=== PATIENT | female | born 1985 | race Caucasian/White ===

== ENCOUNTER 2016-06-09 17:02 | Emergency (ER) | payer MEDICAID ==
[2016-06-09] MEDS ORDERED: Ketorolac 30 MG/ML SDV IVPUSH ONE (18:34)
[2016-06-09] MEDS ORDERED: Sodium Chloride 0.9% 100 ML IV ONE (19:18)
[2016-06-09] MEDS ORDERED: Iopamidol 612 MG/ML 100 ML Bottle IV PRN (19:18)
[2016-06-09] MEDS: Sodium Chloride 0.9% 10 ML Syringe FLUSH PRN ×2 (19:23→19:36)
--- NOTE | 2016-06-09 19:48 | EDM.PDOC ---
ED HPI GI/ABDOMINAL - General Chief Complaint: Gastrointestinal Problem Stated Complaint: NAUSEA,VOMITING,LIGHTHEADED Time Seen by Provider: 06/09/16 18:11 Source: Reports: Patient, Old records, RN notes reviewed History Limitations: Reports: Other (She is anxious and uncomfortable, states "too many questions", but most of the history is complete) - History of Present Illness INITIAL COMMENTS - FREE TEXT/NARRATIVE: Brought here by her boyfriend, referred from the clinic for persisting nausea despite 2 L of intravenous fluids. Patient however states she has no nausea currently. Did receive ondansetron at the office. 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 She was last well 2 weeks ago then started developing diarrhea. She improved for a few days and then was seen in the office on May 29, for a physical exam but instead spent most of them fighting about her diarrhea and vomiting that had recurred. Vitamin D level was found low and she was prescribed metformin for elevated blood sugar. He since then she's continued to have intermittent vomiting and diarrhea, although her last bowel movement was a small solid bowel movement earlier today. Her last emesis was earlier today and is controlled because of as long as she doesn't eat and only drink small amounts she does not vomit. She's been able to take her medications as usual. She's never had illness lasting this long before. She continues to have abdominal cramping she feels very achy all over and very sore as well as feeling exhausted. Has chills but no fever documented. 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 Borderline type 2 diabetes, hemoglobin A1c was 6.4% and her blood sugar was under 25 at her last time tested. Last missed period was mid to late April, probably due for. She said he feels some menstrual cramps. Not using any protection against but has not been a check up for about 2 months because of her boyfriends leg injury and because of her recent diarrhea. Reports chronic postnasal drip which leads to collection of phlegm in her throat she clears by coughing. Does not feel short of breath. In addition to generalized muscle aches currently, she's developed some low back ache on the right side. - Related Data Allergies/ADRs: Allergies Allergy/AdvReac Type Severity Reaction Status Date / Time Penicillins Allergy Unknown Other Verified 02/08/15 01:11 Home Meds: Home Meds Albuterol Sulfate [Ventolin Hfa] 2 inhalation INH DAILY 07/27/15 [History] Cholecalciferol (Vitamin D3) [Vitamin D] 5,000 unit PO ASDIRECTED 06/09/16 [ History] Prochlorperazine Maleate [Compazine] 10 mg PO TID PRN #10 tablet 06/09/16 [Rx] metFORMIN HCl [Metformin HCl ER] 500 mg PO DAILY 06/09/16 [History] Past Medical History Other Respiratory History: pulmonary emboli Neurological History: Reports: Concussion Psychiatric History: Reports: Depression Endocrine/Metabolic History: Reports: Obesity/BMI 30+ - Past Surgical History HEENT Surgical History: Reports: Tonsillectomy Social & Family History - Tobacco Use Smoking Status *Q: Light Tobacco Smoker Years of Tobacco use: 14 Packs/Tins Daily: 0.5 Used Tobacco, but Quit: No Second Hand Smoke Exposure: Yes - Caffeine Use Caffeine Use: Reports: Soda - Alcohol Use Days Per Week of Alcohol Use: 0 - Recreational Drug Use Recreational Drug Use: Yes Drug Use in Last 12 Months: Yes Recreational Drug Type: Reports: Marijuana/Hashish Recreational Drug Use Frequency: Socially Recreational Drug Last Use: 12/15/2013 ED ROS GENERAL - Review of Systems Review Of Systems: See Below Constitutional: Reports: chills, weakness, fatigue, decreased appetite, weight loss (Uncertain). Denies: fever, diaphoresis HEENT: Reports: Other (Postnasal drip). Denies: Ear discharge, Ear pain, Eye discharge, Eye pain, Nose pain, Throat pain Respiratory: Reports: Cough (Occasional). Denies: Shortness of Breath, Wheezing Cardiovascular: Reports: Lightheadedness (Occasional). Denies: Palpitations, Syncope Endocrine: Reports: fatigue, high glucose (Borderline). Denies: polydypsia, polyuria GI/Abdominal: Reports: Abdominal pain (Generalized), Diarrhea (Improved), Decreased appetite, Nausea (Improved), Vomiting (With food or larger amounts of water). Denies: Bloody stool, Stool incontinence : Reports: other (Urine decreased). Denies: dysuria, incontinence, pain, urgency, urinary retention Musculoskeletal: Reports: muscle pain, other (Low back pain to the right of the spine) Skin: Reports: no symptoms Neurological: Reports: Headache (Mild), Difficulty Walking (T2 muscle aches and fatigue), Weakness. Denies: Numbness, Syncope, Tingling, Trouble Speaking Psychiatric: Reports: No symptoms (None reported) Hematologic/Lymphatic: Reports: other (Has had a chronically elevated white cell count) Immunologic: Reports: no symptoms ED EXAM, GI/ABD - Physical Exam Exam: See Below Exam Limited By: Other (Limited capacity to talk because of her weakness and tiredness, however history allergic complete) General Appearance: alert, anxious, moderate distress, other (Able to ambulate but slowly, Vital signs show mild elevation systolic blood pressure, otherwise normal) Eyes: bilateral: normal appearance, EOMI Ears: normal external exam, normal canal, hearing grossly normal, normal TMs Nose: normal inspection, normal mucosa Throat/Mouth: Normal gums, Normal voice, Other (Dry mouth and tongue) Head: atraumatic, normocephalic Neck: normal inspection, supple, non-tender Respiratory/Chest: no respiratory distress, lungs clear, normal breath sounds, no accessory muscle use Cardiovascular: normal peripheral pulses, regular rate, rhythm, no edema, no murmur GI/Abdominal: normal bowel sounds, soft, no mass, tenderness (Mild diffuse), other (Overweight, hard to examine abdomen) Back Exam: normal inspection, paraspinal tenderness (Mild on right side of low back) Extremities: normal inspection, normal range of motion, non-tender, no pedal edema Neurological: oriented, no motor/sensory deficits Psychiatric: anxious, tearful Skin Exam: Warm, Dry, Normal color, No rash Lymphatic: no adenopathy Course - Vital Signs Last Recorded V/S: Last Vital Signs Temp 36.6 C 06/09/16 17:32 Pulse 80 06/09/16 17:32 Resp 16 06/09/16 17:32 BP 154/79 H 06/09/16 17:32 Pulse Ox 95 06/09/16 17:32 - Orders/Labs/Meds Orders: Active Orders 24 hr Category Date Time Status Abdomen Pelvis w Cont [CT] Stat Exams 06/09/16 18:33 Taken Sodium Chloride 0.9% [Saline Flush] Med 06/09/16 19:18 Active 10 ml FLUSH ONETIME PRN Medication Orders Sodium Chloride (Saline Flush) 10 ml FLUSH ONETIME PRN PRN Reason: PER RADIOLOGY PROTOCOL Last Admin: 06/09/16 19:36 Dose: 10 ml Admin: 06/09/16 19:23 Dose: 10 ml Labs: Laboratory Tests 06/09/16 06/09/16 Range/Units 18:49 18:49 Urine Color Yellow Urine Appearance Cloudy Urine pH 5.0 (4.5-8.0) Ur Specific [place] 1.030 (1.008-1.030) Urine Protein Trace (NEGATIVE) mg/dL Urine Glucose (UA) Normal (NEGATIVE) mg/dL Urine Ketones 150 H (NEGATIVE) mg/dL Urine Occult Blood Negative (NEGATIVE) Urine Nitrite Negative (NEGATIVE) Urine Bilirubin Negative (NEGATIVE) Urine Urobilinogen Normal (NORMAL) mg/dL Ur Leukocyte Esterase Negative (NEGATIVE) Urine RBC 0-5 (0-5) Urine WBC 0-5 (0-5) Ur Epithelial Cells Moderate Amorphous Sediment Not seen Urine Bacteria Many Urine Mucus Not seen Urine HCG, Qual Negative Meds: Medications Generic Name Dose Route Start Last Admin Trade Name Freq PRN Reason Stop Dose Admin Sodium Chloride 10 ml 06/09/16 19:18 06/09/16 19:36 Saline Flush FLUSH 10 ml ONETIME PRN Administration PER RADIOLOGY PROTOCOL Discontinued Medications Generic Name Dose Route Start Last Admin Trade Name Freq PRN Reason Stop Dose Admin Sodium Chloride 100 mls @ 3 mls/sec 06/09/16 19:18 06/09/16 19:36 Normal Saline IV 06/09/16 19:19 3 mls/sec ONETIME ONE Administration Iopamidol 100 ml 06/09/16 19:18 06/09/16 19:36 Isovue-300 (61%) IV 06/09/16 19:19 100 ml . DIRECTED PRN Administration RADIOLOGY EXAM Ketorolac Tromethamine 30 mg 06/09/16 18:34 06/09/16 18:54 Toradol IVPUSH 06/09/16 18:35 30 mg ONETIME ONE Administration - Re-Assessments/Exams Free Text/Narrative Re-Assessment/Exam: 06/09/16 19:52 30-year-old female with two-week history of relapsing nausea vomiting and diarrhea. The nausea and diarrhea have improved but she still reports recent vomiting with large amounts of water or food. Her main complaint now is of normal pain fatigue and weakness. She has received 2 L of IV fluids in the office and lab tests in the office reviewed. She has an elevated white count of 18.2, normally runs in the 14-16 range. Electrolytes BUN creatinine hepatic profile normal Differential diagnosis would include gastritis but this is lasting long, colitis , chronic cholecystitis or pancreatitis or possibly appendicitis, thrombosis or ischemia of the intestines, among others. In view of her symptoms, and the fact that despite being hydrated she still feels achy and sore, CT scan of the abdomen and pelvis ordered as well as urinalysis and urine test which was negative. Urinalysis shows many bacteria but no diarrhea. Positive for ketones. 06/09/16 19:54 06/09/16 21:35 CT scan abdomen pelvis negative for acute pathology Plan Continue oral intake of small amounts of fluids frequently Continue oral medications Additional antinausea medication prescribed for tomorrow if needed Followup primary care symptoms persisting week Return to emergency as indicated below if needed Departure - Departure Time of Disposition: 21:30 Disposition: Refer to Observation Preliminary Cause of *Q: sepsis & multi system organ failure Condition: fair Clinical Impression: Generalized abdominal pain, Diarrhea in adult patient Nausea and vomiting Qualifiers: Vomiting type: unspecified Vomiting Intractability: non-intractable Qualified Code(s): R11.2 - Nausea with vomiting, unspecified Leukocytosis, unspecified Qualifiers: Leukocytosis type: other Qualified Code(s): D72.828 - Other elevated white blood cell count Prescriptions: Prochlorperazine Maleate [Compazine] 10 mg PO TID PRN #10 tablet PRN Reason: Abdominal Pain, nausea, vomiti Instructions: Abdominal Pain, Adult, [id number], Nausea and Vomiting, Adult, [id number] Referrals: Bibiana Russ NP [Primary Care Provider] - Forms: ED Department Discharge, Return to Work/School Form Additional Instructions: Please make an appointment for your physician/clinic one week to get rechecked Continue to drink small amounts of fluids frequently You're not improved in a week if physician will need to make arrangements for you to see a specialist Return to emergency if you have recurrence of profuse diarrhea, multiple episodes of vomiting, increased weakness to the point that you were unable to walk or fainting, bloody emesis or bloody diarrhea, or develop a high fever. - My Orders Last 24 Hours: My Active Orders 06/09/16 18:33 Abdomen Pelvis w Cont [CT] Stat 06/09/16 19:18 Sodium Chloride 0.9% [Saline Flush] 10 ml FLUSH ONETIME PRN - Assessment/Plan Last 24 Hours: My Active Orders 06/09/16 18:33 Abdomen Pelvis w Cont [CT] Stat 06/09/16 19:18 Sodium Chloride 0.9% [Saline Flush] 10 ml FLUSH ONETIME PRN
[2016-06-09 21:37] VITALS: BP 126/67
== END 2016-06-09 21:43 ==
LOC: JP.ED 17:02
DX: R11.2 Nausea with vomiting, unspecified (principal); R10.84 Generalized abdominal pain; R19.7 Diarrhea, unspecified; D72.829 Elevated white blood cell count, unspecified; E55.9 Vitamin D deficiency, unspecified; R73.03 Prediabetes; D68.51 Activated protein C resistance; Z86.711 Personal history of pulmonary embolism; F32.9 Major depressive disorder, single episode, unspecified; E66.9 Obesity, unspecified; Z79.899 Other long term (current) drug therapy; F17.210 Nicotine dependence, cigarettes, uncomplicated; F12.90 Cannabis use, unspecified, uncomplicated; R05 Cough; R09.82 Postnasal drip; R53.83 Other fatigue; M54.5 Low back pain; R51 Headache; R26.2 Difficulty in walking, not elsewhere classified; R53.1 Weakness
CPT/HCPCS: 74177; 81001; 81025; 96374; 99285; J1885; J7030; J7050; Q9967

== ENCOUNTER 2016-06-10 11:49 | Inpatient (IN) | payer MEDICAID ==
[2016-06-10] MEDS ORDERED: Ondansetron 4 MG/2 ML SDV IVPUSH ONE (13:08)
--- NOTE | 2016-06-10 13:12 | EDM.PDOC ---
ED HPI GI/ABDOMINAL - General Chief Complaint: Gastrointestinal Problem Stated Complaint: NAUSEA, DIARRHEA Time Seen by Provider: 06/10/16 13:08 Source: Reports: Patient History Limitations: Reports: No limitations - History of Present Illness INITIAL COMMENTS - FREE TEXT/NARRATIVE: pt was seen at the clinic yesterday and was given 2 liters of fluid. She came to the ER because she was not able to hold anything down. She had a large explosive loose stool this am and continued to vomit. Timing/Duration: Reports: Day(s):, Other ( She has had diarrhea for about 10 days. She does not think she is holding anything down. She states she does not remember most of yesterday. ) Location: other (Pt does not have severe abdomanal pain.) Associated Symptoms (-Female): Reports: diarrhea, other ( she was started on metformin 1 week ago and she thinks the loose stools are related to that. She has not been on recent antibiotics.,) - Related Data Allergies/ADRs: Allergies Allergy/AdvReac Type Severity Reaction Status Date / Time Penicillins Allergy Unknown Other Verified 06/10/16 12:32 Home Meds: Home Meds Albuterol Sulfate [Ventolin Hfa] 2 inhalation INH DAILY 07/27/15 [History] Cholecalciferol (Vitamin D3) [Vitamin D] 5,000 unit PO ASDIRECTED 06/09/16 [ History] Prochlorperazine Maleate [Compazine] 10 mg PO TID PRN #10 tablet 06/09/16 [Rx] metFORMIN HCl [Metformin HCl ER] 500 mg PO DAILY 06/09/16 [History] Past Medical History Respiratory History: Reports: PE Other Respiratory History: pulmonary emboli Musculoskeletal History: Reports: Fracture Neurological History: Reports: Concussion Psychiatric History: Reports: Depression Endocrine/Metabolic History: Reports: Obesity/BMI 30+ - Past Surgical History HEENT Surgical History: Reports: Tonsillectomy Social & Family History - Tobacco Use Smoking Status *Q: Light Tobacco Smoker Years of Tobacco use: 14 Packs/Tins Daily: 0.5 Used Tobacco, but Quit: No Second Hand Smoke Exposure: Yes - Caffeine Use Caffeine Use: Reports: Soda - Alcohol Use Days Per Week of Alcohol Use: 0 - Recreational Drug Use Recreational Drug Use: Yes Drug Use in Last 12 Months: Yes Recreational Drug Type: Reports: Marijuana/Hashish Recreational Drug Use Frequency: Socially Recreational Drug Last Use: 3 weeks ago. ED ROS GENERAL - Review of Systems Review Of Systems: See Below Constitutional: Reports: malaise, weakness, other (pt states after all of the vomiting yesterday she doesnt remember most of yesterday. ) HEENT: Reports: No symptoms Respiratory: Reports: No Symptoms Cardiovascular: Reports: No symptoms Endocrine: Reports: no symptoms GI/Abdominal: Reports: Diarrhea, Nausea, Vomiting : Reports: other ( period is late but she had a neg preg test yesterday. ) Skin: Reports: no symptoms ED EXAM, GI/ABD - Physical Exam Exam: See Below Text/Narrative:: Pt arrived with a history of vomiting and diarrhea. She has about 2 loose frothy stools daily. Exam Limited By: No limitations General Appearance: alert, mild distress Ears: normal TMs Nose: normal inspection Throat/Mouth: Normal inspection Head: atraumatic Neck: normal inspection Respiratory/Chest: no respiratory distress Cardiovascular: regular rate, rhythm GI/Abdominal: soft, non tender (Female) Exam: Deferred Rectal (Female) Exam: Deferred Back Exam: normal inspection Extremities: normal inspection Neurological: alert, oriented, normal cognition Psychiatric: depressed mood Course - Vital Signs Last Recorded V/S: Last Vital Signs Temp 36.9 C 06/12/16 13:15 Pulse 72 06/12/16 13:15 Resp 15 06/12/16 13:15 BP 163/91 H 06/12/16 13:15 Pulse Ox 94 L 06/12/16 13:15 - Orders/Labs/Meds Orders: Active Orders 24 hr Category Date Time Status GLUCOSE POC LAB TO COLLECT [POC] QIDACANDBED Lab 06/12/16 11:30 Ordered GLUCOSE POC LAB TO COLLECT [POC] QIDACANDBED Lab 06/12/16 16:30 Ordered GLUCOSE POC LAB TO COLLECT [POC] QIDACANDBED Lab 06/12/16 21:00 Ordered GLUCOSE POC LAB TO COLLECT [POC] QIDACANDBED Lab 06/13/16 07:30 Ordered GLUCOSE POC LAB TO COLLECT [POC] QIDACANDBED Lab 06/13/16 11:30 Ordered GLUCOSE POC LAB TO COLLECT [POC] QIDACANDBED Lab 06/13/16 16:30 Ordered GLUCOSE POC LAB TO COLLECT [POC] QIDACANDBED Lab 06/13/16 21:00 Ordered GLUCOSE POC LAB TO COLLECT [POC] QIDACANDBED Lab 06/14/16 07:30 Ordered GLUCOSE POC LAB TO COLLECT [POC] QIDACANDBED Lab 06/14/16 11:30 Ordered GLUCOSE POC LAB TO COLLECT [POC] QIDACANDBED Lab 06/14/16 16:30 Ordered GLUCOSE POC LAB TO COLLECT [POC] QIDACANDBED Lab 06/14/16 21:00 Ordered GLUCOSE POC LAB TO COLLECT [POC] QIDACANDBED Lab 06/15/16 07:30 Ordered GLUCOSE POC LAB TO COLLECT [POC] QIDACANDBED Lab 06/15/16 11:30 Ordered GLUCOSE POC LAB TO COLLECT [POC] QIDACANDBED Lab 06/15/16 16:30 Ordered GLUCOSE POC LAB TO COLLECT [POC] QIDACANDBED Lab 06/15/16 21:00 Ordered GLUCOSE POC LAB TO COLLECT [POC] QIDACANDBED Lab 06/16/16 07:30 Ordered GLUCOSE POC LAB TO COLLECT [POC] QIDACANDBED Lab 06/16/16 11:30 Ordered GLUCOSE POC LAB TO COLLECT [POC] QIDACANDBED Lab 06/16/16 16:30 Ordered GLUCOSE POC LAB TO COLLECT [POC] QIDACANDBED Lab 06/16/16 21:00 Ordered GLUCOSE POC LAB TO COLLECT [POC] QIDACANDBED Lab 06/17/16 07:30 Ordered GLUCOSE POC LAB TO COLLECT [POC] QIDACANDBED Lab 06/17/16 11:30 Ordered GLUCOSE POC LAB TO COLLECT [POC] QIDACANDBED Lab 06/17/16 16:30 Ordered GLUCOSE POC LAB TO COLLECT [POC] QIDACANDBED Lab 06/17/16 21:00 Ordered GLUCOSE POC LAB TO COLLECT [POC] QIDACANDBED Lab 06/18/16 07:30 Ordered GLUCOSE POC LAB TO COLLECT [POC] QIDACANDBED Lab 06/18/16 11:30 Ordered GLUCOSE POC LAB TO COLLECT [POC] QIDACANDBED Lab 06/18/16 16:30 Ordered GLUCOSE POC LAB TO COLLECT [POC] QIDACANDBED Lab 06/18/16 21:00 Ordered GLUCOSE POC LAB TO COLLECT [POC] QIDACANDBED Lab 06/19/16 07:30 Ordered GLUCOSE POC LAB TO COLLECT [POC] QIDACANDBED Lab 06/19/16 11:30 Ordered GLUCOSE POC LAB TO COLLECT [POC] QIDACANDBED Lab 06/19/16 16:30 Ordered GLUCOSE POC LAB TO COLLECT [POC] QIDACANDBED Lab 06/19/16 21:00 Ordered GLUCOSE POC LAB TO COLLECT [POC] QIDACANDBED Lab 06/20/16 07:30 Ordered GLUCOSE POC LAB TO COLLECT [POC] QIDACANDBED Lab 06/20/16 11:30 Ordered GLUCOSE POC LAB TO COLLECT [POC] QIDACANDBED Lab 06/20/16 16:30 Ordered GLUCOSE POC LAB TO COLLECT [POC] QIDACANDBED Lab 06/20/16 21:00 Ordered GLUCOSE POC LAB TO COLLECT [POC] QIDACANDBED Lab 06/21/16 07:30 Ordered GLUCOSE POC LAB TO COLLECT [POC] QIDACANDBED Lab 06/21/16 11:30 Ordered Medication Orders Acetaminophen (Tylenol) 650 mg PO Q4H PRN PRN Reason: Pain (Mild 1-3)/fever Last Admin: 06/11/16 08:15 Dose: 650 mg Admin: 06/10/16 23:52 Dose: 650 mg Admin: 06/10/16 17:24 Dose: 650 mg Albuterol (Ventolin Hfa) 0 gm INH DAILY [facility] Last Admin: 06/12/16 08:04 Dose: Not Given Admin: 06/11/16 08:29 Dose: Not Given Albuterol (Proventil Neb Soln) 2.5 mg NEB Q4H PRN PRN Reason: Shortness Of Breath/wheezing Albuterol/Ipratropium (Duoneb 3.0-0.5 Mg/3 Ml) 3 ml NEB QIDRT [facility] Last Admin: 06/12/16 10:42 Dose: 3 ml Dextrose (Glutose 15) 15 gm PO ONETIME PRN PRN Reason: Hypoglycemia Dextrose/Water (Dextrose 50% In Water) 50 ml IV ONETIME PRN PRN Reason: Hypoglycemia Enoxaparin Sodium (Lovenox) 40 mg SUBCUT Q12H [facility] Last Admin: 06/12/16 05:00 Dose: 40 mg Admin: 06/11/16 17:14 Dose: 40 mg Admin: 06/11/16 05:07 Dose: 40 mg Admin: 06/10/16 17:24 Dose: 40 mg Hydromorphone HCl (Dilaudid Self Sealing Fuel Tank Repairer 15 Mg In Ns 30 Ml) 0 mg IV ASDIRECTED PRN; Protocol PRN Reason: [employer] Last Admin: 06/11/16 15:44 Dose: 15 mg Lactated Ringer's (Ringers, Lactated) 1,000 mls @ 125 mls/hr IV ASDIRECTED [facility] Last Admin: 06/12/16 07:58 Dose: 125 mls/hr Infusion: 06/12/16 06:10 Dose: 125 mls/hr Admin: 06/11/16 22:10 Dose: 125 mls/hr Infusion: 06/11/16 21:37 Dose: 125 mls/hr Admin: 06/11/16 13:37 Dose: 125 mls/hr Infusion: 06/11/16 13:06 Dose: 125 mls/hr Admin: 06/11/16 05:06 Dose: 125 mls/hr Infusion: 06/11/16 01:27 Dose: 125 mls/hr Admin: 06/10/16 17:27 Dose: 125 mls/hr Ceftazidime 1 gm/ Sodium (Chloride) 50 mls @ 100 mls/hr IV Q8HR [facility] Last Admin: 06/12/16 05:00 Dose: 100 mls/hr Admin: 06/11/16 22:14 Dose: 100 mls/hr Admin: 06/11/16 15:57 Dose: 100 mls/hr Admin: 06/11/16 05:07 Dose: 100 mls/hr Admin: 06/10/16 21:49 Dose: 100 mls/hr Metronidazole 500 mg/ Premix 100 mls @ 100 mls/hr IV Q8H [facility] Last Admin: 06/12/16 09:41 Dose: 100 mls/hr Infusion: 06/12/16 03:09 Dose: 100 mls/hr Admin: 06/12/16 02:09 Dose: 100 mls/hr Infusion: 06/11/16 18:14 Dose: 100 mls/hr Admin: 06/11/16 17:14 Dose: 100 mls/hr Infusion: 06/11/16 10:11 Dose: 100 mls/hr Admin: 06/11/16 09:11 Dose: 100 mls/hr Infusion: 06/11/16 03:21 Dose: 100 mls/hr Admin: 06/11/16 02:21 Dose: 100 mls/hr Infusion: 06/10/16 18:25 Dose: 100 mls/hr Admin: 06/10/16 17:25 Dose: 100 mls/hr Influenza Virus Vaccine (Fluzone/Fluarix Vaccine) 60 mcg IM .ONCE ONE Stop: 06/13/16 10:01 Insulin Aspart (Novolog) 0 unit SUBCUT ASDIRECTED [facility]ACK[facility]ZIE PRN Reason: Protocol Lorazepam (Ativan) 1 mg IVPUSH Q6H PRN PRN Reason: Nausea/Vomiting Last Admin: 06/12/16 04:55 Dose: 1 mg Admin: 06/11/16 20:32 Dose: 1 mg Admin: 06/11/16 11:12 Dose: 1 mg Naloxone HCl (Narcan) 0.1 mg IV ASDIRECTED PRN PRN Reason: decreased respiratory rate Ondansetron HCl (Zofran) 4 mg IV Q4H PRN PRN Reason: Nausea/Vomiting Last Admin: 06/12/16 09:36 Dose: 4 mg Admin: 06/12/16 02:09 Dose: 4 mg Admin: 06/11/16 22:10 Dose: 4 mg Admin: 06/11/16 17:14 Dose: 4 mg Admin: 06/11/16 08:16 Dose: 4 mg Admin: 06/11/16 04:15 Dose: 4 mg Admin: 06/10/16 21:49 Dose: 4 mg Admin: 06/10/16 17:24 Dose: 4 mg Oxycodone HCl (Oxycodone) 5 mg PO Q4H PRN PRN Reason: Pain (moderate 4-6) Last Admin: 06/11/16 09:10 Dose: 5 mg Admin: 06/11/16 05:07 Dose: 5 mg Admin: 06/10/16 23:54 Dose: 5 mg Pantoprazole Sodium (Protonix Iv) 40 mg IV Q12H [facility] Last Admin: 06/12/16 05:00 Dose: 40 mg Admin: 06/11/16 18:18 Dose: 40 mg Admin: 06/11/16 05:07 Dose: 40 mg Admin: 06/10/16 17:24 Dose: 40 mg Pneumococcal Polyvalent Vaccine (Pneumovax 23) 0.5 ml IM .ONCE ONE Stop: 06/13/16 10:01 Scopolamine (Transderm-Scop) 1.5 mg TRDERM Q72H PRN PRN Reason: Nausea Last Admin: 06/12/16 09:35 Dose: 1.5 mg Sodium Chloride (Saline Flush) 10 ml FLUSH ASDIRECTED PRN PRN Reason: Keep Vein Open Labs: Laboratory Tests 06/10/16 06/10/16 06/10/16 Range/Units 13:18 13:18 13:18 WBC 17.2 H (4.5-11.0) K/uL RBC 5.71 H (3.30-5.50) M/uL Hgb 15.8 H (12.0-15.0) g/dL Hct 46.6 (36.0-48.0) % MCV 82 (80-98) fL MCH 28 (27-31) pg MCHC 34 (32-36) % Plt Count 166 (150-400) K/uL Neut % (Auto) 76 H (36-66) % Lymph % (Auto) 15 L (24-44) % Branch % (Auto) 8 H (2-6) % Eos % (Auto) 1 L (2-4) % Baso % (Auto) 1 (0-1) % Sodium 145 (140-148) mmol/L Potassium 4.5 (3.6-5.2) mmol/L Chloride 105 (100-108) mmol/L Carbon Dioxide 28 (21-32) mmol/L Anion Gap 12.5 (5.0-14.0) mmol/L BUN 8 (7-18) mg/dL Creatinine 0.7 (0.6-1.0) mg/dL Est Cr Clr Drug Dosing 120.10 mL/min Estimated GFR (MDRD) > 60 (>60) Glucose 118 H (74-106) mg/dL Calcium 9.1 (8.5-10.1) mg/dL Magnesium (1.8-2.4) mg/dL Total Bilirubin 0.5 (0.2-1.0) mg/dL AST 21 (15-37) U/L ALT 51 (12-78) U/L Alkaline Phosphatase 68 (46-116) U/L C-Reactive Protein 1.01 H (0.0-0.3) mg/dL Total Protein 7.9 (6.4-8.2) g/dL Albumin 3.8 (3.4-5.0) g/dL Globulin 4.1 H (2.3-3.5) g/dL Albumin/Globulin Ratio 0.9 L (1.2-2.2) Lipase (73-393) U/L Urine Color Urine Appearance Urine pH (4.5-8.0) Ur Specific [place] (1.008-1.030) Urine Protein (NEGATIVE) mg/dL Urine Glucose (UA) (NEGATIVE) mg/dL Urine Ketones (NEGATIVE) mg/dL Urine Occult Blood (NEGATIVE) Urine Nitrite (NEGATIVE) Urine Bilirubin (NEGATIVE) Urine Urobilinogen (NORMAL) mg/dL Ur Leukocyte Esterase (NEGATIVE) Urine RBC (0-5) Urine WBC (0-5) Ur Epithelial Cells Amorphous Sediment Urine Bacteria Urine Mucus Urine Opiates Screen (NEGATIVE) Ur Oxycodone Screen (NEGATIVE) Urine Methadone Screen (NEGATIVE) Ur Propoxyphene Screen (NEGATIVE) Ur Barbiturates Screen (NEGATIVE) Ur Tricyclics Screen (NEGATIVE) Ur Phencyclidine Scrn (NEGATIVE) Ur Amphetamine Screen (NEGATIVE) U Methamphetamines Scrn (NEGATIVE) Urine MDMA Screen (NEGATIVE) U Benzodiazepines Scrn (NEGATIVE) U Cocaine Metab Screen (NEGATIVE) U Marijuana (THC) Screen (NEGATIVE) 06/10/16 06/10/16 06/10/16 Range/Units 14:46 14:46 15:15 WBC (4.5-11.0) K/uL RBC (3.30-5.50) M/uL Hgb (12.0-15.0) g/dL Hct (36.0-48.0) % MCV (80-98) fL MCH (27-31) pg MCHC (32-36) % Plt Count (150-400) K/uL Neut % (Auto) (36-66) % Lymph % (Auto) (24-44) % Branch % (Auto) (2-6) % Eos % (Auto) (2-4) % Baso % (Auto) (0-1) % Sodium (140-148) mmol/L Potassium (3.6-5.2) mmol/L Chloride (100-108) mmol/L Carbon Dioxide (21-32) mmol/L Anion Gap (5.0-14.0) mmol/L BUN (7-18) mg/dL Creatinine (0.6-1.0) mg/dL Est Cr Clr Drug Dosing mL/min Estimated GFR (MDRD) (>60) Glucose (74-106) mg/dL Calcium (8.5-10.1) mg/dL Magnesium (1.8-2.4) mg/dL Total Bilirubin (0.2-1.0) mg/dL AST (15-37) U/L ALT (12-78) U/L Alkaline Phosphatase (46-116) U/L C-Reactive Protein (0.0-0.3) mg/dL Total Protein (6.4-8.2) g/dL Albumin (3.4-5.0) g/dL Globulin (2.3-3.5) g/dL Albumin/Globulin Ratio (1.2-2.2) Lipase 110 (73-393) U/L Urine Color Yellow Urine Appearance Slightly cloudy Urine pH 6.0 (4.5-8.0) Ur Specific [place] 1.020 (1.008-1.030) Urine Protein Negative (NEGATIVE) mg/dL Urine Glucose (UA) Normal (NEGATIVE) mg/dL Urine Ketones 50 H (NEGATIVE) mg/dL Urine Occult Blood Negative (NEGATIVE) Urine Nitrite Negative (NEGATIVE) Urine Bilirubin Negative (NEGATIVE) Urine Urobilinogen Normal (NORMAL) mg/dL Ur Leukocyte Esterase Negative (NEGATIVE) Urine RBC Not seen (0-5) Urine WBC 0-5 (0-5) Ur Epithelial Cells Many Amorphous Sediment Not seen Urine Bacteria Many Urine Mucus Few Urine Opiates Screen Negative (NEGATIVE) Ur Oxycodone Screen Negative (NEGATIVE) Urine Methadone Screen Negative (NEGATIVE) Ur Propoxyphene Screen Negative (NEGATIVE) Ur Barbiturates Screen Negative (NEGATIVE) Ur Tricyclics Screen Negative (NEGATIVE) Ur Phencyclidine Scrn Negative (NEGATIVE) Ur Amphetamine Screen Negative (NEGATIVE) U Methamphetamines Scrn Negative (NEGATIVE) Urine MDMA Screen Negative (NEGATIVE) U Benzodiazepines Scrn Negative (NEGATIVE) U Cocaine Metab Screen Negative (NEGATIVE) U Marijuana (THC) Screen Positive H (NEGATIVE) 06/11/16 06/11/16 Range/Units 04:50 04:50 WBC 16.3 H (4.5-11.0) K/uL RBC 5.09 (3.30-5.50) M/uL Hgb 13.9 (12.0-15.0) g/dL Hct 42.2 (36.0-48.0) % MCV 83 (80-98) fL MCH 27 (27-31) pg MCHC 33 (32-36) % Plt Count 143 L (150-400) K/uL Neut % (Auto) 61 (36-66) % Lymph % (Auto) 27 (24-44) % Branch % (Auto) 9 H (2-6) % Eos % (Auto) 2 (2-4) % Baso % (Auto) 0 (0-1) % Sodium 144 (140-148) mmol/L Potassium 3.4 L (3.6-5.2) mmol/L Chloride 107 (100-108) mmol/L Carbon Dioxide 26 (21-32) mmol/L Anion Gap 14.4 H (5.0-14.0) mmol/L BUN 7 (7-18) mg/dL Creatinine 0.7 (0.6-1.0) mg/dL Est Cr Clr Drug Dosing 120.10 mL/min Estimated GFR (MDRD) > 60 (>60) Glucose 95 (74-106) mg/dL Calcium 8.5 (8.5-10.1) mg/dL Magnesium 1.7 L (1.8-2.4) mg/dL Total Bilirubin (0.2-1.0) mg/dL AST (15-37) U/L ALT (12-78) U/L Alkaline Phosphatase (46-116) U/L C-Reactive Protein (0.0-0.3) mg/dL Total Protein (6.4-8.2) g/dL Albumin (3.4-5.0) g/dL Globulin (2.3-3.5) g/dL Albumin/Globulin Ratio (1.2-2.2) Lipase (73-393) U/L Urine Color Urine Appearance Urine pH (4.5-8.0) Ur Specific [place] (1.008-1.030) Urine Protein (NEGATIVE) mg/dL Urine Glucose (UA) (NEGATIVE) mg/dL Urine Ketones (NEGATIVE) mg/dL Urine Occult Blood (NEGATIVE) Urine Nitrite (NEGATIVE) Urine Bilirubin (NEGATIVE) Urine Urobilinogen (NORMAL) mg/dL Ur Leukocyte Esterase (NEGATIVE) Urine RBC (0-5) Urine WBC (0-5) Ur Epithelial Cells Amorphous Sediment Urine Bacteria Urine Mucus Urine Opiates Screen (NEGATIVE) Ur Oxycodone Screen (NEGATIVE) Urine Methadone Screen (NEGATIVE) Ur Propoxyphene Screen (NEGATIVE) Ur Barbiturates Screen (NEGATIVE) Ur Tricyclics Screen (NEGATIVE) Ur Phencyclidine Scrn (NEGATIVE) Ur Amphetamine Screen (NEGATIVE) U Methamphetamines Scrn (NEGATIVE) Urine MDMA Screen (NEGATIVE) U Benzodiazepines Scrn (NEGATIVE) U Cocaine Metab Screen (NEGATIVE) U Marijuana (THC) Screen (NEGATIVE) Meds: Medications Generic Name Dose Route Start Last Admin Trade Name Freq PRN Reason Stop Dose Admin Acetaminophen 650 mg 06/10/16 16:20 06/11/16 08:15 Tylenol PO 650 mg Q4H PRN Administration Pain (Mild 1-3)/fever Albuterol 0 gm 06/11/16 09:00 06/12/16 08:04 Ventolin Hfa INH Not Given DAILY MACKENZIE Albuterol 2.5 mg 06/10/16 16:20 Proventil Neb Soln NEB Q4H PRN Shortness Of Breath/wheezing Albuterol/Ipratropium 3 ml 06/12/16 11:00 06/12/16 10:42 Duoneb 3.0-0.5 Mg/3 Ml NEB 3 ml QIDRT MACKENZIE Administration Dextrose 15 gm 06/10/16 16:20 Glutose 15 PO ONETIME PRN Hypoglycemia Dextrose/Water 50 ml 06/10/16 16:20 Dextrose 50% In Water IV ONETIME PRN Hypoglycemia Enoxaparin Sodium 40 mg 06/10/16 18:00 06/12/16 05:00 Lovenox SUBCUT 40 mg Q12H MACKENZIE Administration Hydromorphone HCl 0 mg 06/11/16 13:40 06/11/16 15:44 Dilaudid Self Sealing [employer] Tank Repairer 15 Mg In Ns 30 Ml IV 15 mg ASDIRECTED PRN Administration [employer] Protocol Lactated Ringer's 1,000 mls @ 125 mls/hr 06/10/16 16:20 06/12/16 07:58 Ringers, Lactated IV 125 mls/hr ASDIRECTED MACKENZIE Administration Ceftazidime 1 gm/ Sodium 50 mls @ 100 mls/hr 06/10/16 22:00 06/12/16 05:00 Chloride IV 100 mls/hr Q8HR MACKENZIE Administration Metronidazole 500 mg/ Premix 100 mls @ 100 mls/hr 06/10/16 18:00 06/12/16 09: 41 IV 100 mls/hr Q8H MACK[facility]IE Administration Influenza Virus Vaccine 60 mcg 06/13/16 10:00 Fluzone/Fluarix 2016 Vaccine IM 06/13/16 10:01 .ONCE ONE Insulin Aspart 0 unit 06/10/16 16:20 Novolog SUBCUT ASDIRECTED MACKENZIE Protocol Lorazepam 1 mg 06/11/16 03:29 06/12/16 04:55 Ativan IVPUSH 1 mg Q6H PRN Administration Nausea/Vomiting Naloxone HCl 0.1 mg 06/11/16 13:40 Narcan IV ASDIRECTED PRN decreased respiratory rate Ondansetron HCl 4 mg 06/10/16 16:20 06/12/16 09:36 Zofran IV 4 mg Q4H PRN Administration Nausea/Vomiting Oxycodone HCl 5 mg 06/10/16 16:20 06/11/16 09:10 Oxycodone PO 5 mg Q4H PRN Administration Pain (moderate 4-6) Pantoprazole Sodium 40 mg 06/10/16 18:00 06/12/16 05:00 Protonix Iv IV 40 mg Q12H MACKEN[facility]IE Administration Pneumococcal Polyvalent Vaccine 0.5 ml 06/13/16 10:00 Pneumovax 23 IM 06/13/16 10:01 .ONCE ONE Scopolamine 1.5 mg 06/12/16 07:24 06/12/16 09:35 Transderm-Scop TRDERM 1.5 mg Q72H PRN Administration Nausea Sodium Chloride 10 ml 06/10/16 16:20 Saline Flush FLUSH ASDIRECTED PRN Keep Vein Open Discontinued Medications Generic Name Dose Route Start Last Admin Trade Name Freq PRN Reason Stop Dose Admin Bupivacaine HCl/Epinephrine Bitart Confirm 06/12/16 06:43 06/12/16 11:36 Marcaine 0.5%/Epinephrine 1:200,000 Administered 06/12/16 06:44 50 ml Dose Administration 50 ml .ROUTE .STK-MED ONE Dexamethasone Confirm 06/12/16 08:56 Dexamethasone Administered 06/12/16 08:57 Dose 4 mg .ROUTE .STK-MED ONE Fentanyl Confirm 06/11/16 11:26 Sublimaze Administered 06/11/16 11:27 Dose 100 mcg .ROUTE .STK-MED ONE Fentanyl Confirm 06/12/16 08:56 Sublimaze Administered 06/12/16 08:57 Dose 500 mcg .ROUTE .STK-MED ONE Fentanyl Confirm 06/12/16 12:33 Sublimaze Administered 06/12/16 12:34 Dose 100 mcg .ROUTE .STK-MED ONE Glycopyrrolate 0.4 mg 06/11/16 08:01 06/12/16 00:45 Robinul IVPUSH 06/11/16 08:02 Not Given ONETIME ONE Hydroxyzine HCl 100 mg 06/12/16 13:05 06/12/16 13:02 Vistaril IM 06/12/16 13:06 100 mg ONETIME ONE Administration Sodium Chloride 1,000 mls @ 999 mls/hr 06/10/16 13:15 06/10/16 13:38 Normal Saline IV 999 mls/hr ASDIRECTED MACKENZIE Administration Sodium Chloride 1,000 mls @ 999 mls/hr 06/10/16 14:30 06/10/16 14:45 Normal Saline IV 999 mls/hr ASDIRECTED MACKENZIE Administration Magnesium Sulfate 2 gm/ Premix 50 mls @ 25 mls/hr 06/11/16 09:00 06/11/16 17: 14 IV 06/11/16 16:59 25 mls/hr Q6H M[facility]IE Administration Potassium Chloride 20 meq/ 112 mls @ 56 mls/hr 06/11/16 09:30 06/11/16 13:37 Lidocaine HCl 2 ml/ Sodium IV 06/11/16 13:29 56 mls/hr Chloride Q2H MACKEN[facility]IE Administration Lactated Ringer's Confirm 06/12/16 11:58 Ringers, Lactated Administered 06/12/16 11:59 Dose 1,000 mls @ as directed .ROUTE .STK-MED ONE Ketorolac Tromethamine 30 mg 06/11/16 02:45 06/11/16 02:43 Toradol IVPUSH 06/11/16 02:46 30 mg ONETIME ONE Administration Labetalol HCl Confirm 06/12/16 12:06 Normodyne Administered 06/12/16 12:07 Dose 20 mg .ROUTE .STK-MED ONE Lorazepam 1 mg 06/11/16 00:17 06/11/16 00:32 Ativan IVPUSH 06/11/16 00:18 1 mg ONETIME ONE Administration Midazolam HCl Confirm 06/11/16 11:26 Versed 1 Mg/Ml Administered 06/11/16 11:27 Dose 2 mg .ROUTE .STK-MED ONE Ondansetron HCl 4 mg 06/10/16 13:08 06/10/16 13:36 Zofran IVPUSH 06/10/16 13:09 4 mg ONETIME ONE Administration Ondansetron HCl Confirm 06/12/16 08:56 Zofran Administered 06/12/16 08:57 Dose 4 mg .ROUTE .STK-MED ONE Propofol Confirm 06/11/16 11:26 Diprivan 20 Ml Administered 06/11/16 11:27 Dose 200 mg .ROUTE .STK-MED ONE Propofol Confirm 06/11/16 12:33 Diprivan 20 Ml Administered 06/11/16 12:34 Dose 200 mg .ROUTE .STK-MED ONE Propofol Confirm 06/12/16 08:56 Diprivan 20 Ml Administered 06/12/16 08:57 Dose 200 mg .ROUTE .STK-MED ONE Rocuronium [place] Confirm 06/12/16 08:56 Zemuron Administered 06/12/16 08:57 Dose 50 mg .ROUTE .STK-MED ONE Succinylcholine Chloride Confirm 06/12/16 08:56 Succinylcholine In Ns Pf Administered 06/12/16 08:57 Dose 200 mg .ROUTE .STK-MED ONE - Re-Assessments/Exams Free Text/Narrative Re-Assessment/Exam: 06/10/16 14:11 Pt had a cat scan last nit that did not show acute findinga. She has electrolytes that still look dry. She had a neg preg test last nite. Departure - Departure Time of Disposition: 13:15 Disposition: Admitted As Inpatient 67 Condition: fair Clinical Impression: Dehydration
[2016-06-10] MEDS ORDERED: Sodium Chloride 0.9% 1,000 ML IV SCH ×2 (13:15→14:30)
--- NOTE | 2016-06-10 13:40 | CR ---
Abdomen Series w Chest 1V INDICATION: pain FINDINGS: No focal consolidation. Slight atelectasis left lung base. Normal bowel gas pattern. No ev idence for small bowel obstruction. Exam otherwise unremarkable.
--- NOTE | 2016-06-10 16:05 | PCM.HP ---
H&P History of Present Illness - General Date of Service: 06/10/16 Admit Problem/Dx: Admission Diagnosis/Problem Admission Diagnosis/Problem Nausea and vomiting Source of Information: Patient, Old records, Provider, RN notes reviewed History Limitations: Reports: No limitations - History of Present Illness Initial Comments - Free Text/Narative: This patient is a 30-year-old woman who is admitted to observation status through the emergency department with dehydration secondary to persistent nausea and vomiting. She's not felt well over the past 2 weeks and is had intermittent nausea and vomiting as well as occasional loose stools. Now over the past 2-3 days has had very persistent nausea and vomiting, with dehydration. Evaluation in the emergency department last night included a normal CT scan with no significant abnormalities to explain her current symptoms. She has been found to have an elevated white blood cell count, but otherwise labs are unremarkable including normal liver function studies and lipase level. She's never had similar symptoms in the past. She develops nausea vomiting shortly after eating and is associated with the sensation of bloating and fullness in her upper abdomen. She also intermittently has had some pain across lower abdomen and left lower quadrant. - Related Data Allergies/Adverse Reactions: Allergies Allergy/AdvReac Type Severity Reaction Status Date / Time Penicillins Allergy Unknown Other Verified 06/10/16 12:32 Home Medications: Home Meds Albuterol Sulfate [Ventolin Hfa] 2 inhalation INH DAILY 07/27/15 [History] Cholecalciferol (Vitamin D3) [Vitamin D] 5,000 unit PO ASDIRECTED 06/09/16 [ History] Prochlorperazine Maleate [Compazine] 10 mg PO TID PRN #10 tablet 06/09/16 [Rx] metFORMIN HCl [Metformin HCl ER] 500 mg PO DAILY 06/09/16 [History] Past Medical History Respiratory History: Reports: PE Other Respiratory History: pulmonary emboli Musculoskeletal History: Reports: Fracture Neurological History: Reports: Concussion Psychiatric History: Reports: Depression Endocrine/Metabolic History: Reports: Obesity/BMI 30+ - Past Surgical History HEENT Surgical History: Reports: Tonsillectomy Social & Family History - Tobacco Use Smoking Status *Q: Light Tobacco Smoker Years of Tobacco use: 14 Packs/Tins Daily: 0.5 Used Tobacco, but Quit: No Second Hand Smoke Exposure: Yes - Caffeine Use Caffeine Use: Reports: Soda - Alcohol Use Days Per Week of Alcohol Use: 0 - Recreational Drug Use Recreational Drug Use: Yes Drug Use in Last 12 Months: Yes Recreational Drug Type: Reports: Marijuana/Hashish Recreational Drug Use Frequency: Socially Recreational Drug Last Use: 3 weeks ago. H&P Review of Systems - Review of Systems: Review Of Systems: See Below General: Denies: fever, chills, weakness, fatigue, diaphoresis, decreased appetite HEENT: Reports: no symptoms Pulmonary: Reports: No Symptoms Cardiovascular: Reports: no symptoms Gastrointestinal: Reports: Abdominal pain, Diarrhea, Decreased appetite, Nausea , Vomiting. Denies: Anorexia, Black stool, Bloody stool, Constipation, Difficulty swallowing Genitourinary: Reports: no symptoms Musculoskeletal: Reports: no symptoms Skin: Reports: no symptoms Psychiatric: Reports: no symptoms Neurological: Reports: No Symptoms Hematologic/Lymphatic: Reports: no symptoms Immunologic: Reports: no symptoms Exam - Exam Exam: See Below - Vital Signs Vital Signs: Last Vital Signs Temp 97.5 F 06/10/16 12:30 Pulse 78 06/10/16 12:30 Resp 16 06/10/16 12:30 BP 158/92 H 06/10/16 12:30 Pulse Ox 95 06/10/16 12:30 Weight: 325 lb 0.017 oz - Exam Quality Assessment: DVT prophylaxis General: alert, oriented, cooperative, mild distress HEENT: Conjunctiva clear, EOMI, Mucosa moist & pink, Nares patent, Normal nasal septum, Posterior pharynx clear, Pupils equal, Pupils reactive Neck: supple, trachea midline, +2 carotid pulse wo bruit Lungs: Clear to auscultation, Normal respiratory effort Cardiovascular: regular rate, regular rhythm, normal S1, normal S2. No: systolic murmur, diastolic murmur Abdomen: normal bowel sounds, soft, tenderness. No: organomegaly, peritoneal signs, distention, guarding, rigidity, rebound Back Exam: normal inspection, full range of motion, NT Extremities: 3, normal inspection, 10 Skin: warm, dry, intact Neurological: cranial nerves intact, strength equal bilateral, normal speech, normal tone, sensation intact. No: focal deficit Neuro Extensive - Mental Status: alert, oriented x3, normal mood/affect, normal cognition, memory intact - Patient Data Lab Results last 24 hrs: Laboratory Results - last 24 hr 06/10/16 06/10/16 06/10/16 Range/Units 13:18 13:18 13:18 WBC 17.2 H (4.5-11.0) K/uL RBC 5.71 H (3.30-5.50) M/uL Hgb 15.8 H (12.0-15.0) g/dL Hct 46.6 (36.0-48.0) % MCV 82 (80-98) fL MCH 28 (27-31) pg MCHC 34 (32-36) % Plt Count 166 (150-400) K/uL Neut % (Auto) 76 H (36-66) % Lymph % (Auto) 15 L (24-44) % [place] % (Auto) 8 H (2-6) % Eos % (Auto) 1 L (2-4) % Baso % (Auto) 1 (0-1) % Sodium 145 (140-148) mmol/L Potassium 4.5 (3.6-5.2) mmol/L Chloride 105 (100-108) mmol/L Carbon Dioxide 28 (21-32) mmol/L Anion Gap 12.5 (5.0-14.0) mmol/L BUN 8 (7-18) mg/dL Creatinine 0.7 (0.6-1.0) mg/dL Est Cr Clr Drug Dosing 120.10 mL/min Estimated GFR (MDRD) > 60 (>60) Glucose 118 H (74-106) mg/dL Calcium 9.1 (8.5-10.1) mg/dL Total Bilirubin 0.5 (0.2-1.0) mg/dL AST 21 (15-37) U/L ALT 51 (12-78) U/L Alkaline Phosphatase 68 (46-116) U/L C-Reactive Protein 1.01 H (0.0-0.3) mg/dL Total Protein 7.9 (6.4-8.2) g/dL Albumin 3.8 (3.4-5.0) g/dL Globulin 4.1 H (2.3-3.5) g/dL Albumin/Globulin Ratio 0.9 L (1.2-2.2) Lipase (73-393) U/L Urine Color Urine Appearance Urine pH (4.5-8.0) Ur Specific Golden (1.008-1.030) Urine Protein (NEGATIVE) mg/dL Urine Glucose (UA) (NEGATIVE) mg/dL Urine Ketones (NEGATIVE) mg/dL Urine Occult Blood (NEGATIVE) Urine Nitrite (NEGATIVE) Urine Bilirubin (NEGATIVE) Urine Urobilinogen (NORMAL) mg/dL Ur Leukocyte Esterase (NEGATIVE) Urine RBC (0-5) Urine WBC (0-5) Ur Epithelial Cells Amorphous Sediment Urine Bacteria Urine Mucus Urine Opiates Screen (NEGATIVE) Ur Oxycodone Screen (NEGATIVE) Urine Methadone Screen (NEGATIVE) Ur Propoxyphene Screen (NEGATIVE) Ur Barbiturates Screen (NEGATIVE) Ur Tricyclics Screen (NEGATIVE) Ur Phencyclidine Scrn (NEGATIVE) Ur Amphetamine Screen (NEGATIVE) U Methamphetamines Scrn (NEGATIVE) Urine MDMA Screen (NEGATIVE) U Benzodiazepines Scrn (NEGATIVE) U Cocaine Metab Screen (NEGATIVE) U Marijuana (THC) Screen (NEGATIVE) 06/10/16 06/10/16 06/10/16 Range/Units 14:46 14:46 15:15 WBC (4.5-11.0) K/uL RBC (3.30-5.50) M/uL Hgb (12.0-15.0) g/dL Hct (36.0-48.0) % MCV (80-98) fL MCH (27-31) pg MCHC (32-36) % Plt Count (150-400) K/uL Neut % (Auto) (36-66) % Lymph % (Auto) (24-44) % Penning[place] % (Auto) (2-6) % Eos % (Auto) (2-4) % Baso % (Auto) (0-1) % Sodium (140-148) mmol/L Potassium (3.6-5.2) mmol/L Chloride (100-108) mmol/L Carbon Dioxide (21-32) mmol/L Anion Gap (5.0-14.0) mmol/L BUN (7-18) mg/dL Creatinine (0.6-1.0) mg/dL Est Cr Clr Drug Dosing mL/min Estimated GFR (MDRD) (>60) Glucose (74-106) mg/dL Calcium (8.5-10.1) mg/dL Total Bilirubin (0.2-1.0) mg/dL AST (15-37) U/L ALT (12-78) U/L Alkaline Phosphatase (46-116) U/L C-Reactive Protein (0.0-0.3) mg/dL Total Protein (6.4-8.2) g/dL Albumin (3.4-5.0) g/dL Globulin (2.3-3.5) g/dL Albumin/Globulin Ratio (1.2-2.2) Lipase 110 (73-393) U/L Urine Color Yellow Urine Appearance Slightly cloudy Urine pH 6.0 (4.5-8.0) Ur Specific Golden 1.020 (1.008-1.030) Urine Protein Negative (NEGATIVE) mg/dL Urine Glucose (UA) Normal (NEGATIVE) mg/dL Urine Ketones 50 H (NEGATIVE) mg/dL Urine Occult Blood Negative (NEGATIVE) Urine Nitrite Negative (NEGATIVE) Urine Bilirubin Negative (NEGATIVE) Urine Urobilinogen Normal (NORMAL) mg/dL Ur Leukocyte Esterase Negative (NEGATIVE) Urine RBC Not seen (0-5) Urine WBC 0-5 (0-5) Ur Epithelial Cells Many Amorphous Sediment Not seen Urine Bacteria Many Urine Mucus Few Urine Opiates Screen Negative (NEGATIVE) Ur Oxycodone Screen Negative (NEGATIVE) Urine Methadone Screen Negative (NEGATIVE) Ur Propoxyphene Screen Negative (NEGATIVE) Ur Barbiturates Screen Negative (NEGATIVE) Ur Tricyclics Screen Negative (NEGATIVE) Ur Phencyclidine Scrn Negative (NEGATIVE) Ur Amphetamine Screen Negative (NEGATIVE) U Methamphetamines Scrn Negative (NEGATIVE) Urine MDMA Screen Negative (NEGATIVE) U Benzodiazepines Scrn Negative (NEGATIVE) U Cocaine Metab Screen Negative (NEGATIVE) U Marijuana (THC) Screen Positive H (NEGATIVE) Result Diagrams: 06/10/16 13:18 06/10/16 13:18 *Q Meaningful Use (ADM) - VTE *Q VTE Criteria *Q: - VTE Risk Assess *Q Each Risk Factor Represents 1 Point: None Total Score 1 Point Risk Factors: 0 Each Risk Factor Represents 2 Points: Morbid Obesity (BMI Greater than 40) Total Score 2 Point Risk Factors: 2 Each Risk Factor Represents 3 Points: Positive Factor V Leiden Total Score 3 Point Risk Factors: 3 Each Risk Factor Represents 5 Points: None Total Score 5 Point Risk Factors: 0 Venous Thromboembolism Risk Factor Score *Q: 5 - Stroke *Q Stroke Criteria *Q: - AMI *Q AMI Criteria *Q: Problem List Initiated/Reviewed/Updated: Yes Orders Last 24hrs: Active Orders 24 hr Category Date Time Status Patient Status Manage Transfer [TRANSFER] Routine ADT 06/10/16 15:39 Ordered CLOSTRIDIUM DIFFICILE BY PCR [RM] Stat Lab 06/10/16 13:07 Uncollected Sodium Chloride 0.9% [Normal Saline] 1,000 ml Med 06/10/16 13:15 Active IV ASDIRECTED Sodium Chloride 0.9% [Normal Saline] 1,000 ml Med 06/10/16 14:30 Active IV ASDIRECTED Resuscitation Status Routine Resus Stat 06/10/16 15:41 Ordered Medication Orders Sodium Chloride (Normal Saline) 1,000 mls @ 999 mls/hr IV ASDIRECTED [facility] Last Admin: 06/10/16 13:38 Dose: 999 mls/hr Sodium Chloride (Normal Saline) 1,000 mls @ 999 mls/hr IV ASDIRECTED [facility] Last Admin: 06/10/16 14:45 Dose: 999 mls/hr Assessment/Plan Comment:: ASSESSMENT AND PLAN DEHYDRATION SECONDARY TO NAUSEA AND VOMITING-persistent symptoms over the past 2 -3 days with very minimal oral intake. Initial this seemed to start with symptoms consistent with viral gastroenteritis. She develops nausea vomiting with upper abdominal discomfort and bloating shortly after any oral intake. -Clear liquid diet -N.p.o. after midnight -Antiemetic therapy as needed -Pain medication as needed -Protonix 40 mg IV Q. 12 hours -antibiotics to cover for possible cholecystitis including Fortaz and Flagyl -Consult Dr. Domínguez for surgical opinion and EGD in a.m. -CCK stimulated HIDA scan in a.m. 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 after midnight -Nicotinic dependence; not required CODE STATUS-FULL CODE ADMISSION STATUS-this patient will be admitted to observation status, expect no more than a one night hospital stay for evaluation and management of problems as outlined above. DISPOSITION-anticipate discharge to home after the hospital stay. PRIMARY CARE PROVIDER-Bibiana Russ
[2016-06-10] MEDS ORDERED: 50% Dextrose in Water 50 ML Syringe IV PRN (16:20)
[2016-06-10] MEDS ORDERED: Sodium Chloride 0.9% 10 ML Syringe FLUSH PRN (16:20)
[2016-06-10] MEDS ORDERED: Glucose Gel 15 GM in 37.5 GM Tube PO PRN (16:20)
[2016-06-10] MEDS ORDERED: Albuterol 0.083% 2.5 MG/3 ML Neb Soln NEB PRN (16:20)
[2016-06-10] MEDS: Enoxaparin 40 MG/0.4 ML Syringe SUBCUT SCH (17:24)
[2016-06-10] MEDS: Acetaminophen 325 MG Tab PO PRN ×2 (17:24→23:52)
[2016-06-10] MEDS: Ondansetron 4 MG/2 ML SDV IV PRN ×2 (17:24→21:49)
[2016-06-10] MEDS: Pantoprazole 40 MG Vial IV SCH (17:24)
[2016-06-10] MEDS: metroNIDAZOLE/Normal Saline 500 MG in Premix Bag 1 BAG IV SCH (17:25)
[2016-06-10] MEDS: Lactated Ringers 1,000 ML IV SCH (17:27)
[2016-06-10] MEDS: cefTAZidime 1 GM in Sodium Chloride 0.9% 50 ML IV SCH (21:49)
[2016-06-10] MEDS: oxyCODONE 5 MG Tab PO PRN (23:54)
[2016-06-11] MEDS ORDERED: LORazepam 2 MG/ML MDV IVPUSH ONE (00:17)
[2016-06-11] MEDS: metroNIDAZOLE/Normal Saline 500 MG in Premix Bag 1 BAG IV SCH ×3 (02:21→17:14)
[2016-06-11] MEDS ORDERED: Ketorolac 30 MG/ML SDV IVPUSH ONE (02:45)
[2016-06-11] MEDS: Ondansetron 4 MG/2 ML SDV IV PRN ×4 (04:15→22:10)
[2016-06-11] MEDS: Lactated Ringers 1,000 ML IV SCH ×3 (05:06→22:10)
[2016-06-11] MEDS: oxyCODONE 5 MG Tab PO PRN ×2 (05:07→09:10)
[2016-06-11] MEDS: Pantoprazole 40 MG Vial IV SCH ×2 (05:07→18:18)
[2016-06-11] MEDS: Enoxaparin 40 MG/0.4 ML Syringe SUBCUT SCH ×2 (05:07→17:14)
[2016-06-11] MEDS: cefTAZidime 1 GM in Sodium Chloride 0.9% 50 ML IV SCH ×3 (05:07→22:14)
--- NOTE | 2016-06-11 05:23 | PCM.SN ---
- Free Text/Narrative Note: time 05:18am; 2 call from [address] [place] [address] at 00:18am request for medication for nausea not relieved by zofran 02:46 am; request for pain medication not narcotic patient has nausea from narcotic pain medication patient with various complaints of body aches and pain. o: vital signs; 36.6-74-16 b/p105/72 o2 sat 91% a; pain, nausea and vomiting p; order;ativan 1mg iv, may repeat every 6 hr prn nausea and vomiting order ; toradol 30mg iv x one. continue present plan of care.
--- NOTE | 2016-06-11 07:44 | PCM.CONS ---
H&P History of Present Illness - General Date of Service: 06/11/16 Admit Problem/Dx: Admission Diagnosis/Problem Admission Diagnosis/Problem Nausea and vomiting Source of Information: Patient History Limitations: Reports: Other (patient unable to stay awake ) - History of Present Illness Initial Comments - Free Text/Narative: Reviewed Dr. Anson Hernadez's notes - Related Data Allergies/Adverse Reactions: Allergies Allergy/AdvReac Type Severity Reaction Status Date / Time Penicillins Allergy Unknown Other Verified 06/10/16 12:32 Home Medications: Home Meds Albuterol Sulfate [Ventolin Hfa] 2 inhalation INH DAILY 07/27/15 [History] Cholecalciferol (Vitamin D3) [Vitamin D] 5,000 unit PO ASDIRECTED 06/09/16 [ History] Prochlorperazine Maleate [Compazine] 10 mg PO TID PRN #10 tablet 06/09/16 [Rx] metFORMIN HCl [Metformin HCl ER] 500 mg PO DAILY 06/09/16 [History] Past Medical History Respiratory History: Reports: PE Other Respiratory History: pulmonary emboli Musculoskeletal History: Reports: Fracture Neurological History: Reports: Concussion Psychiatric History: Reports: Depression Endocrine/Metabolic History: Reports: Diabetes, type II, Obesity/BMI 30+ - Past Surgical History HEENT Surgical History: Reports: Tonsillectomy Social & Family History - Tobacco Use Smoking Status *Q: Light Tobacco Smoker Years of Tobacco use: 14 Packs/Tins Daily: 0.5 Used Tobacco, but Quit: No Second Hand Smoke Exposure: Yes - Caffeine Use Caffeine Use: Reports: Energy drinks, Soda - Alcohol Use Days Per Week of Alcohol Use: 0 - Recreational Drug Use Recreational Drug Use: Yes Drug Use in Last 12 Months: Yes Recreational Drug Type: Reports: Marijuana/Hashish Other Recreational Drug Type: 3 weeks ago Recreational Drug Use Frequency: Socially Recreational Drug Last Use: 3 weeks ago. H&P Review of Systems - Review of Systems: Review Of Systems: Unable To Obtain (patient could not stay awake long enough to complete a sentence so limited ROS) General: Reports: weakness, fatigue HEENT: Reports: no symptoms Pulmonary: Reports: No Symptoms Cardiovascular: Reports: no symptoms Gastrointestinal: Reports: Abdominal pain (points to mid epigastric area), Diarrhea, Nausea (dry heaves) Genitourinary: Reports: no symptoms Musculoskeletal: Reports: no symptoms Skin: Reports: no symptoms Psychiatric: Reports: no symptoms Neurological: Reports: No Symptoms Hematologic/Lymphatic: Reports: no symptoms Immunologic: Reports: no symptoms Review of Systems Comment:: Remainder ROS negative for any pertinent positives or negatives. Exam - Exam Exam: See Below - Vital Signs Vital Signs: Last Vital Signs Temp 97.8 F 06/11/16 07:00 Pulse 66 06/11/16 07:00 Resp 18 06/11/16 07:00 BP 120/78 06/11/16 07:00 Pulse Ox 92 L 06/11/16 07:00 Weight: 325 lb 0.017 oz - Exam General: lethargic Neck: supple Lungs: Clear to auscultation, Normal respiratory effort Cardiovascular: regular rate, regular rhythm Abdomen: tenderness (mid epigastric area ) (Female) Exam: Deferred Rectal (Female) Exam: Deferred Back Exam: normal inspection Extremities: normal inspection Skin: warm, dry, intact Neurological: cranial nerves intact, reflexes equal bilateral Neuro Extensive - Mental Status: other (as above ) Neuro Extensive - Motor, Sensory, Reflexes: CN II-XII intact Psychiatric: other (sedated) - Patient Data Lab Results last 24 hrs: Laboratory Results - last 24 hr 06/11/16 06/11/16 Range/Units 04:50 04:50 WBC 16.3 H (4.5-11.0) K/uL RBC 5.09 (3.30-5.50) M/uL Hgb 13.9 (12.0-15.0) g/dL Hct 42.2 (36.0-48.0) % MCV 83 (80-98) fL MCH 27 (27-31) pg MCHC 33 (32-36) % Plt Count 143 L (150-400) K/uL Neut % (Auto) 61 (36-66) % Lymph % (Auto) 27 (24-44) % [place] % (Auto) 9 H (2-6) % Eos % (Auto) 2 (2-4) % Baso % (Auto) 0 (0-1) % Sodium 144 (140-148) mmol/L Potassium 3.4 L (3.6-5.2) mmol/L Chloride 107 (100-108) mmol/L Carbon Dioxide 26 (21-32) mmol/L Anion Gap 14.4 H (5.0-14.0) mmol/L BUN 7 (7-18) mg/dL Creatinine 0.7 (0.6-1.0) mg/dL Est Cr Clr Drug Dosing 120.10 mL/min Estimated GFR (MDRD) > 60 (>60) Glucose 95 (74-106) mg/dL Calcium 8.5 (8.5-10.1) mg/dL Magnesium 1.7 L (1.8-2.4) mg/dL Result Diagrams: 06/11/16 04:50 06/11/16 04:50 Consult PN Assessment/Plan POD#: 0 Procedures: Procedures COMPLETE CBC W/AUTO DIFF WBC (02/25/14) COMPREHEN METABOLIC PANEL (02/25/14) CT PELVIS W/DYE (02/25/14) CULTURE SCREEN ONLY (05/25/15) EMERGENCY DEPT VISIT (07/27/15) EMERGENCY DEPT VISIT (02/08/15) EMERGENCY DEPT VISIT (02/25/14) EMERGENCY DEPT VISIT (12/21/13) EMERGENCY DEPT VISIT (08/10/13) EMERGENCY DEPT VISIT (07/12/13) EMERGENCY DEPT VISIT (07/12/13) EMERGENCY DEPT VISIT (02/22/13) EMERGENCY DEPT VISIT (02/22/13) RBC SED RATE NONAUTOMATED (02/25/14) ROUTINE VENIPUNCTURE (02/25/14) THER/PROPH/DIAG INJ IV PUSH (02/25/14) THER/PROPH/DIAG INJ SC/IM (07/27/15) TX/PRO/DX INJ NEW DRUG ADDON (02/25/14) TX/PRO/DX INJ SAME DRUG SERVICE SUPERVISOR (02/25/14) URINALYSIS AUTO W/SCOPE (02/25/14) URINE BACTERIA CULTURE (02/25/14) (1) Generalized abdominal pain SNOMED Code(s): 754135694 Code(s): R10.84 - GENERALIZED ABDOMINAL PAIN Current Visit: No (2) Diarrhea in adult patient SNOMED Code(s): 29876163 Code(s): R19.7 - DIARRHEA, UNSPECIFIED Current Visit: No (3) Nausea and vomiting SNOMED Code(s): 69019870 Code(s): R11.2 - NAUSEA WITH VOMITING, UNSPECIFIED Current Visit: No Qualifiers: Vomiting type: unspecified Vomiting Intractability: non-intractable Qualified Code(s): R11.2 - Nausea with vomiting, unspecified (4) Leukocytosis, unspecified SNOMED Code(s): 802063284, 416631527 Code(s): D72.829 - ELEVATED WHITE BLOOD CELL COUNT, UNSPECIFIED Current Visit: No Qualifiers: Leukocytosis type: other Qualified Code(s): D72.828 - Other elevated white blood cell count (5) Dehydration SNOMED Code(s): 22354848 Code(s): E86.0 - DEHYDRATION Current Visit: Yes Problem List Initiated/Reviewed/Updated: Yes My Orders last 24 hours: My Active Orders 06/11/16 06:58 Communication Order [RC] ROUTINE 06/11/16 07:00 Communication Order [RC] ROUTINE Plan: Admit to Inpatient Status - patient to stay 3 night s and possible 4 days Schedule and have consent signed for EGD with possible biopsies - IV Sedation - Alexi Domínguez MD - NPO - , 06/11/16 - Case to Follow Do HIDA Scan before EGD Will evaluated prn or in AM [facility]
[2016-06-11] MEDS ORDERED: Glycopyrrolate 0.2 MG/ML 2 ML SYRINGE IVPUSH ONE (08:01)
[2016-06-11] MEDS ORDERED: Potassium Chloride 40 MEQ in Premix Bag 1 BAG IV ONE (08:07)
[2016-06-11] MEDS: Acetaminophen 325 MG Tab PO PRN (08:15)
[2016-06-11] MEDS: Albuterol 8 GM Inhaler INH SCH (08:29)
[2016-06-11] MEDS ORDERED: Pneumococcal Polyvalent-23 Vaccine 0.5 ML SDV IM ONE (10:00)
[2016-06-11] MEDS ORDERED: Flu Vaccine 2016-17(36Mos+)/PF 60 MCG/0.5 ML Syringe IM ONE (10:00)
[2016-06-11] MEDS: Potassium Chloride 20 MEQ, Lidocaine 1% 2 ML in Sodium Chloride 0.9% 100 ML IV SCH ×2 (11:01→13:37)
[2016-06-11] MEDS: Magnesium Sulfate/Water 2 GM in Premix Bag 1 BAG IV SCH ×2 (11:04→17:14)
[2016-06-11] MEDS: LORazepam 2 MG/ML MDV IVPUSH PRN ×2 (11:12→20:32)
[2016-06-11] MEDS ORDERED: Midazolam 1 MG/ML 2 ML SDV ONE (11:26)
[2016-06-11] MEDS ORDERED: Propofol 200 MG/20 ML SDV ONE ×2 (11:26→12:33)
[2016-06-11] MEDS ORDERED: fentaNYL 100 MCG/2 ML SDV ONE (11:26)
--- NOTE | 2016-06-11 12:47 | NM ---
HIDA scan. Findings: 5.56 mCi technetium Choletec administered. 2.95 mcg CCK administered. Prompt liver uptake. Gallbladder uptake at 10 minutes. Bowel uptake at 20 minutes. Low gallbladder e jection fraction 9.8%. Impression: 1. Low gallbladder ejection fraction can indicate chronic cholecystitis or gallbladder dysfunction.
[2016-06-11] MEDS ORDERED: Naloxone 0.4 MG/ML SDV IV PRN (13:40)
[2016-06-11] MEDS: HYDROmorphone/Normal Saline 15 MG/30 ML PCA IV PRN (15:44)
--- NOTE | 2016-06-11 15:49 | PCM.PN ---
- General Info Date of Service: 06/11/16 Functional Status: Reports: pain controlled, ambulating, urinating - Review of Systems General: Denies: Fever, Chills Pulmonary: Reports: no symptoms Cardiovascular: Reports: No Symptoms Gastrointestinal: Reports: Abdominal pain, Nausea. Denies: Difficulty swallowing Psychiatric: Reports: no symptoms Systems Review Comment:: This patient has done fairly well since admission yesterday. There've been no further episodes of diarrhea, nausea and vomiting have been fairly well- controlled. EGD performed by Dr. Domínguez today showed no obvious source of pain or the nausea or vomiting. CCK stimulated HIDA scan was abnormal in that CCK infusion did reproduce her symptoms and her gallbladder ejection fraction was severely decreased. Current plan is for surgery tomorrow by Dr. Domínguez. - Patient Data Vitals - most recent: Last Vital Signs Temp 97.6 F 06/11/16 14:20 Pulse 63 06/11/16 14:20 Resp 14 06/11/16 14:20 BP 125/76 06/11/16 14:20 Pulse Ox 97 06/11/16 14:20 Weight - most recent: 325 lb 0.017 oz I&O - last 24 hours: Intake & Output 06/11/16 06/11/16 06/11/16 06:59 14:59 22:59 Intake Total 374 Output Total 80 Balance 294 Med Orders - Current: Current Medications Acetaminophen (Tylenol) 650 mg PO Q4H PRN PRN Reason: Pain (Mild 1-3)/fever Last Admin: 06/11/16 08:15 Dose: 650 mg Albuterol (Ventolin Hfa) 0 gm INH DAILY [facility] Last Admin: 06/11/16 08:29 Dose: Not Given Albuterol (Proventil Neb Soln) 2.5 mg NEB Q4H PRN PRN Reason: Shortness Of Breath/wheezing Dextrose (Glutose 15) 15 gm PO ONETIME PRN PRN Reason: Hypoglycemia Dextrose/Water (Dextrose 50% In Water) 50 ml IV ONETIME PRN PRN Reason: Hypoglycemia Enoxaparin Sodium (Lovenox) 40 mg SUBCUT Q12H [facility] Last Admin: 06/11/16 05:07 Dose: 40 mg Hydromorphone HCl (Dilaudid Latex Fashions Designer 15 Mg In Ns 30 Ml) 0 mg IV ASDIRECTED PRN; Protocol PRN Reason: FIELD RECORDER PAIN CONTROL Lactated Ringer's (Ringers, Lactated) 1,000 mls @ 125 mls/hr IV ASDIRECTED [facility] Last Admin: 06/11/16 13:37 Dose: 125 mls/hr Ceftazidime 1 gm/ Sodium (Chloride) 50 mls @ 100 mls/hr IV Q8HR [facility] Last Admin: 06/11/16 05:07 Dose: 100 mls/hr Metronidazole 500 mg/ Premix 100 mls @ 100 mls/hr IV Q8H [facility] Last Admin: 06/11/16 09:11 Dose: 100 mls/hr Magnesium Sulfate 2 gm/ Premix 50 mls @ 25 mls/hr IV Q6H [facility] Stop: 06/11/16 16:59 Last Admin: 06/11/16 11:04 Dose: 25 mls/hr Insulin Aspart (Novolog) 0 unit SUBCUT ASDIRECTED [facility] PRN Reason: Protocol Lorazepam (Ativan) 1 mg IVPUSH Q6H PRN PRN Reason: Nausea/Vomiting Last Admin: 06/11/16 11:12 Dose: 1 mg Naloxone HCl (Narcan) 0.1 mg IV ASDIRECTED PRN PRN Reason: decreased respiratory rate Ondansetron HCl (Zofran) 4 mg IV Q4H PRN PRN Reason: Nausea/Vomiting Last Admin: 06/11/16 08:16 Dose: 4 mg Oxycodone HCl (Oxycodone) 5 mg PO Q4H PRN PRN Reason: Pain (moderate 4-6) Last Admin: 06/11/16 09:10 Dose: 5 mg Pantoprazole Sodium (Protonix Iv) 40 mg IV Q12H [facility] Last Admin: 06/11/16 05:07 Dose: 40 mg Sodium Chloride (Saline Flush) 10 ml FLUSH ASDIRECTED PRN PRN Reason: Keep Vein Open Discontinued Medications Fentanyl (Sublimaze) Confirm Administered Dose 100 mcg .ROUTE .STK-MED ONE Stop: 06/11/16 11:27 Glycopyrrolate (Robinul) 0.4 mg IVPUSH ONETIME ONE Stop: 06/11/16 08:02 Sodium Chloride (Normal Saline) 1,000 mls @ 999 mls/hr IV ASDIRECTED [facility] Last Admin: 06/10/16 13:38 Dose: 999 mls/hr Sodium Chloride (Normal Saline) 1,000 mls @ 999 mls/hr IV ASDIRECTED [facility] Last Admin: 06/10/16 14:45 Dose: 999 mls/hr Potassium Chloride 20 meq/Lidocaine HCl 2 ml/ Sodium Chloride 112 mls @ 56 mls/ hr IV Q2H [facility] Stop: 06/11/16 13:29 Last Admin: 06/11/16 13:37 Dose: 56 mls/hr Influenza Virus Vaccine (Fluzone/Fluarix 2016 Vaccine) 60 mcg IM .ONCE ONE Stop: 06/11/16 10:01 Ketorolac Tromethamine (Toradol) 30 mg IVPUSH ONETIME ONE Stop: 06/11/16 02:46 Last Admin: 06/11/16 02:43 Dose: 30 mg Lorazepam (Ativan) 1 mg IVPUSH ONETIME ONE Stop: 06/11/16 00:18 Last Admin: 06/11/16 00:32 Dose: 1 mg Midazolam HCl (Versed 1 Mg/Ml) Confirm Administered Dose 2 mg .ROUTE .STK-MED ONE Stop: 06/11/16 11:27 Ondansetron HCl (Zofran) 4 mg IVPUSH ONETIME ONE Stop: 06/10/16 13:09 Last Admin: 06/10/16 13:36 Dose: 4 mg Pneumococcal Polyvalent Vaccine (Pneumovax 23) 0.5 ml IM .ONCE ONE Stop: 06/11/16 10:01 Propofol (Diprivan 20 Ml) Confirm Administered Dose 200 mg .ROUTE .STK-MED ONE Stop: 06/11/16 11:27 Propofol (Diprivan 20 Ml) Confirm Administered Dose 200 mg .ROUTE .STK-MED ONE Stop: 06/11/16 12:34 - Exam Quality Assessment: DVT prophylaxis General: alert, oriented, cooperative Lungs: Clear to auscultation, Normal respiratory effort Cardiovascular: Regular Rate, Regular Rhythm, No Murmurs Abdomen: bowel sounds present, soft, no distension, tenderness. No: rigidity, rebound, guarding Extremities: no edema Skin: warm, dry, intact - Problem List Review Problem List Initiated/Reviewed/Updated: Yes - My Orders Last 24 Hours: My Active Orders 06/11/16 09:00 Magnesium Sulfate/Water [Magnesium Sulfate 2 GM in Water 50 ML] 2 gm Premix Bag 1 bag IV Q6H 06/12/16 05:00 BASIC METABOLIC PANEL,BMP [CHEM] Timed CBC WITH AUTO DIFF [HEME] Timed MAGNESIUM [CHEM] Timed - Plan Plan:: ASSESSMENT AND PLAN CHOLECYSTITIS-persistent symptoms over the past 2-3 days with very minimal oral intake. Evaluation today shows evidence of cholecystitis is the likely cause of her recent symptoms. Current plan is for laparoscopic cholecystectomy with Dr. Domínguez in the a.m. -Clear liquid diet -N.p.o. after midnight -Antiemetic therapy as needed -Pain medication as needed -Protonix 40 mg IV Q. 12 hours -antibiotics to cover for possible cholecystitis including Fortaz and Flagyl -Laparoscopic cholecystectomy in a.m. 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 after midnight -Nicotinic dependence; not required CODE STATUS-FULL CODE ADMISSION STATUS-this patient will be admitted to observation status, expect no more than a one night hospital stay for evaluation and management of problems as outlined above. DISPOSITION-anticipate discharge to home after the hospital stay. PRIMARY CARE PROVIDER-[facility] service will sign off on the patient is she is to undergo surgery tomorrow, we can be of further assistance with medical management during her hospital stay please feel free to reconsult.
[2016-06-12] MEDS: Ondansetron 4 MG/2 ML SDV IV PRN ×3 (02:09→15:31)
[2016-06-12] MEDS: metroNIDAZOLE/Normal Saline 500 MG in Premix Bag 1 BAG IV SCH ×2 (02:09→09:41)
[2016-06-12] MEDS: LORazepam 2 MG/ML MDV IVPUSH PRN ×2 (04:55→19:39)
[2016-06-12] MEDS: Pantoprazole 40 MG Vial IV SCH (05:00)
[2016-06-12] MEDS: cefTAZidime 1 GM in Sodium Chloride 0.9% 50 ML IV SCH (05:00)
[2016-06-12] MEDS: Enoxaparin 40 MG/0.4 ML Syringe SUBCUT SCH (05:00)
[2016-06-12] MEDS ORDERED: Bupivacaine 0.5%/EPINEPHrine 1:200,000 50 ML MDV ONE (06:43)
[2016-06-12] MEDS ORDERED: Scopolamine 1.5 MG Transdermal Patch TRDERM PRN (07:24)
[2016-06-12] MEDS: Lactated Ringers 1,000 ML IV SCH (07:58)
[2016-06-12] MEDS: Albuterol 8 GM Inhaler INH SCH (08:04)
--- NOTE | 2016-06-12 08:51 | PN ---
DATE OF SERVICE: 06/12/2016 SUBJECTIVE: Ayaka is n.p.o. for a laparoscopic cholecystectomy today. Her ejection fraction from her HIDA scan was 10%. REVIEW OF SYSTEMS: Remainder of review of systems negative for any pertinent positives and negatives and she is n.p.o. OBJECTIVE: GENERAL: Ayaka Viera is a 30-year-old female. VITAL SIGNS: TPR is 96.8, 63, 20. Blood pressure 128/87. HEENT: Negative. NECK: Supple. HEART: Regular rate and rhythm. LUNGS: Reveal extensive wheezing. She has moderate air exchange. She states this is normal for her. History of asthma and cannot remember when she quit smoking. ABDOMEN: Remains to be tender in the mid epigastric area. EXTREMITIES: Without peripheral edema and SCDs have been on. ASSESSMENT: Biliary dyskinesia. PLAN: 1. Orders written for laparoscopic cholecystectomy, to remain n.p.o., scopolamine patch was placed. 2. We will evaluate p.r.n. or in a.m. and orders to be written postoperatively. Jewels Baker PA-C /[id number]
[2016-06-12] MEDS ORDERED: Ondansetron 4 MG/2 ML SDV ONE (08:56)
[2016-06-12] MEDS ORDERED: fentaNYL 250 MCG/5 ML SDV ONE (08:56)
[2016-06-12] MEDS ORDERED: Rocuronium 50 MG/5 ML Vial ONE (08:56)
[2016-06-12] MEDS ORDERED: Propofol 200 MG/20 ML SDV ONE (08:56)
[2016-06-12] MEDS ORDERED: Succinylcholine/Normal Saline 200 MG/10 ML Syringe ONE (08:56)
[2016-06-12] MEDS ORDERED: Dexamethasone 4 MG/ML SDV ONE (08:56)
[2016-06-12] MEDS ORDERED: Albuterol/Ipratropium 3.0-0.5 MG/3 ML Neb Soln NEB SCH (11:00)
[2016-06-12] MEDS ORDERED: Lactated Ringers 1,000 ML ONE (11:58)
[2016-06-12] MEDS ORDERED: Labetalol 20 MG/4 ML Syringe ONE (12:06)
[2016-06-12] MEDS ORDERED: fentaNYL 100 MCG/2 ML SDV ONE (12:33)
[2016-06-12] MEDS ORDERED: hydrOXYzine HCl 50 MG/ML SDV IM ONE (13:05)
[2016-06-12] MEDS: Dextrose 5%-Lactated Ringers 1,000 ML IV SCH (15:12)
[2016-06-12] MEDS: cefOXitin 2 GM in Sodium Chloride 0.9% 50 ML IV SCH ×2 (15:42→21:49)
[2016-06-12] MEDS: Insulin Aspart 100 Units/ML 3 ML Pen SUBCUT SCH ×2 (17:38→21:51)
[2016-06-12] MEDS ORDERED: hydrOXYzine HCl 50 MG/ML SDV IM PRN (23:45)
[2016-06-12] MEDS ORDERED: hydrOXYzine HCl 25 MG Tab PO PRN ×2 (23:46→23:49)
[2016-06-13] MEDS: cefOXitin 2 GM in Sodium Chloride 0.9% 50 ML IV SCH ×2 (01:43→08:44)
[2016-06-13] MEDS: Dextrose 5%-Lactated Ringers 1,000 ML IV SCH (01:45)
[2016-06-13] MEDS: LORazepam 2 MG/ML MDV IVPUSH PRN (03:31)
[2016-06-13] MEDS: HYDROmorphone/Normal Saline 15 MG/30 ML PCA IV PRN (05:00)
[2016-06-13] MEDS ORDERED: Enoxaparin 40 MG/0.4 ML Syringe SUBCUT SCH (06:00)
[2016-06-13] MEDS ORDERED: Pantoprazole 40 MG Vial IV SCH (06:00)
[2016-06-13] MEDS: Ondansetron 4 MG/2 ML SDV IV PRN ×2 (08:45→12:11)
[2016-06-13] MEDS: Acetaminophen/oxyCODONE 325-5 MG Tab PO PRN ×2 (08:45→12:11)
[2016-06-13] MEDS ORDERED: Flu Vaccine 2016-17(36Mos+)/PF 60 MCG/0.5 ML Syringe IM ONE (10:00)
[2016-06-13] MEDS ORDERED: metFORMIN 500 MG Tab.ER PO SCH (10:00)
[2016-06-13] MEDS ORDERED: Pneumococcal Polyvalent-23 Vaccine 0.5 ML SDV IM ONE (10:00)
[2016-06-13 10:46] VITALS: BP 114/65
--- NOTE | 2016-06-15 14:14 | PN ---
DATE OF SERVICE: 06/13/2016 The patient has been afebrile with stable vital signs. Feeling anxious overnight and walking around quite a bit, but otherwise appears to stable. Labs look okay this morning, just had elevated white count that has probably reacted to the surgery and the liver function tests were negative. CICI drainage is serous. For pain control, we will keep her here today. We will discontinue the CICI drain. Restart metformin. Back down the IV rate she'll be going up to regular diet. We will ask Dr. Hernadez with her factor V Leiden deficiency, whether or not she should be going on a course of anticoagulation. Otherwise, continue the b.i.d. Lovenox now. Alexi Domínguez MD /[id number]
--- NOTE | 2016-06-18 19:19 | OR ---
DATE OF PROCEDURE: 06/11/2016 PREOPERATIVE DIAGNOSIS: Biliary dyskinesia. POSTOPERATIVE DIAGNOSIS: Biliary dyskinesia. OPERATIVE PROCEDURE: Laparoscopic cholecystectomy (03827). ANESTHESIA: General. SALES PROJECT ENGINEER: Jewels Baker PA-C INDICATION FOR PROCEDURE: This is a 30-year-old female presenting with upper abdominal discomfort and nausea. A HIDA scan was obtained yesterday, which showed only a 10% ejection fraction with CCK causing reproduction of the patient's symptoms. Plan is to proceed with laparoscopic cholecystectomy. Potential risks including bleeding, infection, injury to underlying viscera such as the common bile duct, as well as possibility of persistent symptoms postoperatively were all reviewed, and the patient wishes to proceed. DETAILS OF PROCEDURE: The patient was taken to the operating room and placed in a supine position. After general endotracheal anesthesia was induced, the abdomen was prepped and draped. In the area just to the right of the umbilicus, a transverse incision was made and peritoneal cavity entered under direct vision with an Optiview trocar. The peritoneal cavity was inflated to 15 mmHg with CO2. Laparoscope was reinserted. No underlying trocar insertion site injuries were seen. Following this, a 12 mm epigastric trocar as well as a 5 mm right abdominal trocar were placed and the upper abdomen was examined. The patient was noted to have a fatty infiltrated liver. Otherwise, her gallbladder was quite distended and edematous, somewhat manriquez in appearance consistent with ongoing cholecystitis. The gallbladder was then retracted anteriorly and laterally. Dissection began on the gallbladder neck with Harmonic scalpel and continued around the gallbladder neck and cystic duct junction. Once that area was well delineated as was the adjacent cystic artery, both structures were clipped 3 times proximally and once distally, and the gallbladder dissected off the gallbladder bed using Harmonic scalpel and delivered through the upper midline port. Inspection of the gallbladder off the field showed intense cholesterolosis with some small specks of a sludge-like material present. The area of dissection was inspected. Panchito-Parham drain was taken out through the right lateral trocar site and placed in the area of gallbladder bed with no further problems such as bile leaks or bleeding. The trocars were removed. The fascia at the 12 mm site was closed with 0 Vicryl stitch, and the skin with 4-0 Vicryl skin stitch. Dressing was applied. The patient was taken to the recovery room in satisfactory condition. Physician operations administrative assistant, Jewels Norby, played an essential role in assisting in this case, helping to position the patient, retract structures as needed, as well as suturing and cutting sutures when indicated. Her presence improved patient safety and decreased operative time. Alexi Domínguez MD /[id number]
--- NOTE | 2016-06-22 22:53 | OR ---
DATE OF PROCEDURE: 06/12/2016 PREOPERATIVE DIAGNOSIS: Probable subacute cholecystitis. POSTOPERATIVE DIAGNOSIS: Subacute and chronic cholecystitis with pericholecystic fluid collection (sterile versus nonsterile abscess). OPERATIVE PROCEDURE: 1. Diagnostic laparoscopy with:. a. Cholecystectomy (92589). b. Drainage of pericholecystic abscess ([id number]). ANESTHESIA: General. BULB GRADER: Jewels Baker PA-C. INDICATIONS FOR PROCEDURE: This 30-year-old was admitted on 06/10/2016 with abdominal pain. Workup eventually led to the identification of an abnormal gallbladder. The gallbladder was quite tender and suspected again with subacute cholecystitis. The plan is to proceed with laparoscopic possible open cholecystectomy with possibility of complications such as bleeding, infection, injury to underlying viscera such as common bile duct, possible persistent symptoms postoperatively were all reviewed, and the patient wishes to proceed. DETAILS OF PROCEDURE: The patient was taken to the operating room and was placed in a supine position. After general endotracheal anesthesia was induced, the abdomen was then prepped and draped. Due to a bit of fullness in the right upper quadrant consistent with fairly marked inflammation at that level, the safest approach in terms of gaining access to the abdomen appeared to be an optical trocar placed just to the right of the umbilicus. The incision was made there and the peritoneal cavity entered under direct vision with Optiview trocar inflated to 15 mmHg pressure with CO2. Following this, a 12 mm epigastric trocar and a 5 mm right upper quadrant trocar were placed. As expected, the patient had a quite subacute component of cholecystitis. The omentum at this time was loosely adherent and this was pulled back as we elevated the gallbladder away from the omentum and transverse colon. The pancreatic fluid collection was present. This was aspirated and the abscess cavity fluid was sent for Gram stain and culture. At this point, the gallbladder was opened as it was tensely distended; difficult to manage and the bilious material evacuated. This contained some black small stones as well. The gallbladder was then retracted anteriorly and laterally, and dissection began with Harmonic scalpel at the gallbladder neck, continued around the gallbladder neck, cystic duct junction. Once that area was well delineated as was the cystic artery, both structures were clipped 3 times proximally and once distally and divided. The gallbladder was then dissected off the gallbladder bed using the Harmonic scalpel and delivered through the epigastric trocar site, the latter which had to be enlarged somewhat. At this point, no further problems noted and no bleeding or bile leaks were seen and the Panchito-Parham drain was taken out through the right lateral trocar site and placed into the gallbladder bed as well as the pericholecystic abscess. The trocars were then sequentially removed with the fascia. The 12-mm site was closed with 0-Vicryl stitch and the skin with 6-0 Vicryl skin stitch other than the epigastric site where the gallbladder had been pulled through was packed open with some iodoform gauze to minimize the postoperative infection risk. The patient was taken to the recovery room in satisfactory condition. Physician dental front office assistant, Jewels Baker, played an essential role in assisting in this case, helping to position the patient, retract structures as needed, suturing and cutting sutures as indicated. Her presence improved patient safety and decreased operative time. Alexi Domínguez MD /[id number]
--- NOTE | 2016-06-29 15:49 | OR ---
DATE OF PROCEDURE: 06/11/2016 PREOPERATIVE DIAGNOSIS: Upper abdominal pain. POSTOPERATIVE DIAGNOSES: Upper abdominal pain associated with mild antral gastritis. OPERATIVE PROCEDURE: Esophagogastroduodenoscopy with antral biopsies for CLOtest. ANESTHESIA: IV sedation. INDICATION FOR PROCEDURE: This is a 30-year-old admitted with upper abdominal pain. She underwent a CCK-stimulated HIDA scan earlier today, which revealed an abnormal ejection fraction and did reproduce her discomfort and did undergo an upper GI endoscopy presently to make sure there is not something in addition to the biliary dyskinesia causing her pain. Potential risks including bleeding and perforation were discussed, and the patient wishes to proceed. DETAILS OF PROCEDURE: The patient was taken to the operating room and placed in a left lateral decubitus position. IV sedation was administered, after which the upper GI endoscope was passed orally through the length of the esophagus and into the stomach with retroflexion view of the fundus, thereafter through the pyloric channel, and into the proximal duodenum. Findings included normal esophagus and EG junction area. The proximal stomach was likewise unremarkable. The small-bowel had retained bile. In the antrum, there was some mild patchy redness without erosions or ulcers. In the duodenum to the junction of the third and fourth portions were unremarkable. Biopsies thereafter obtained from the antrum and sent for CLOtest for H. pylori. Minimal bleeding from the biopsy sites was seen. The procedure was then concluded. The patient was taken to the recovery room in satisfactory condition. The operative findings would not likely be contributing significantly to her progressive symptoms and given the HIDA scan results, we will plan to proceed with a laparoscopic cholecystectomy tomorrow. Alexi Domínguez MD /[id number]
--- NOTE | 2016-07-08 14:45 | DISCH ---
FINAL DIAGNOSIS: 1. Subacute and chronic cholecystitis with pericholecystic abscess. 2. Mild antral gastritis. 3. Dehydration secondary to persistent nausea and vomiting. PAST MEDICAL HISTORY: Includes a history of pulmonary embolism, history of depression, history of obesity. OPERATIVE PROCEDURE: 1. On 06/11/2016, esophagogastroduodenoscopy with antral biopsies for CLOtest. 2. On 06/12/2016, diagnostic laparoscopy with. a. Cholecystectomy. b. Drainage of pericholecystic abscess. HOSPITAL COURSE: This is a 31-year-old admitted with abdominal pain, nausea, and vomiting. The patient had upper abdominal pain, initially noted the day following admission. The patient underwent a HIDA scan. This did show below normal ejection fraction and did reproduce her symptoms to a significant extent. Upper GI endoscopy was done to make sure there was nothing additionally going on in that region. This only showed some mild antral gastritis. Given this, the patient underwent a cholecystectomy on 06/12/2016, which showed a quite striking subacute cholecystitis as had developed an abscess cavity was also encountered, and it was drained. Postoperatively, the patient did well and was discharged home on postop day #1. Medications are as per the listed at discharge. Follow up will be with Jewels Baker at [facility] in roughly 1 week.
== END 2016-06-13 15:15 | disposition home or self-care (01) | DRG 418 ==
LOC: JP.ED 11:49 → JP.MS 15:39 → OBSVTOIN 06-11 07:00
PROVIDERS: ADMIT Hospitalist; ATTEND Hospitalist
PROC: 0DB68ZX Excision of Stomach, Via Natural or Artificial Opening Endoscopic, Diagnostic (ICD-10-PCS; principal; 2016-06-11)
PROC: 0FT44ZZ Resection of Gallbladder, Percutaneous Endoscopic Approach (ICD-10-PCS; 2016-06-12)
DX: K81.1 Chronic cholecystitis (principal); Z68.41 Body mass index [BMI] 40.0-44.9, adult; D68.51 Activated protein C resistance; E86.0 Dehydration; R19.7 Diarrhea, unspecified; R11.2 Nausea with vomiting, unspecified; D72.829 Elevated white blood cell count, unspecified; E11.9 Type 2 diabetes mellitus without complications; Z23 Encounter for immunization; F17.210 Nicotine dependence, cigarettes, uncomplicated; Z86.711 Personal history of pulmonary embolism; F32.9 Major depressive disorder, single episode, unspecified; E66.01 Morbid (severe) obesity due to excess calories; Z86.718 Personal history of other venous thrombosis and embolism; Z79.84 Long term (current) use of oral hypoglycemic drugs; Z88.0 Allergy status to penicillin; F12.90 Cannabis use, unspecified, uncomplicated; K76.0 Fatty (change of) liver, not elsewhere classified
CPT/HCPCS: 36415; 74022; 74022-26; 78227; 78227-26; 80048; 80053; 80305; 81001; 82247; 82962; 83690; 83735; 84075; 85025; 86140; 87070; 87075; 87081; 87205; 88304; 90686; 90732; 94640; 94762; 96361; 96365; 96366; 96367; 96368; 96372; 96374; 96375; 96376; 99285-25; A9270-GY; C9113; G0378; J0694; J0713; J1100; J1170; J1650; J1885; J2060; J2250; J2405; J2704; J3010; J3410; J3475; J3480; J7030; J7040; J7042; J7050; J7120; J7620

== ENCOUNTER 2016-08-08 11:14 | Emergency (ER) | payer MEDICAID ==
[2016-08-08 11:40] VITALS: BP 153/97
--- NOTE | 2016-08-08 11:55 | EDM.PDOC ---
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 Periods regular for the last year. Did have unprotected sex on . Now with spotting when she wipes. Noted x 2 this week. Is on Coumadin for Factor 5. Does smoke. Does take a multivitamin. INR drawn on . Taking 7.5mg Coumadin daily but took only 5 yesterday. Lab was subtherapeutic. Has had nipple tenderness. Questions . Is not using contraception. Onset: Today Quality: Reports: Other (no pain) Severity: Mild Improves with: Reports: None Worsens with: Reports: None Context: Reports: Other (no bleeding with intercourse) Associated Symptoms: Reports: No Other Symptoms - Related Data Allergies Allergy/AdvReac Type Severity Reaction Status Date / Time Penicillins Allergy Unknown Other Verified 06/10/16 12:32 Home Meds: Home Meds Albuterol Sulfate [Ventolin Hfa] 2 inhalation INH DAILY 07/27/15 [History] Cholecalciferol (Vitamin D3) [Vitamin D] 5,000 unit PO ASDIRECTED 06/09/16 [ History] metFORMIN HCl [Metformin HCl ER] 500 mg PO DAILY 06/09/16 [History] ALPRAZolam [Alprazolam] 08/08/16 [History] Venlafaxine [Effexor] 08/08/16 [History] Warfarin [Coumadin] 08/08/16 [History] Past Medical History Respiratory History: Reports: PE Other Respiratory History: pulmonary emboli Musculoskeletal History: Reports: Fracture Neurological History: Reports: Concussion Psychiatric History: Reports: Depression Endocrine/Metabolic History: Reports: Diabetes, Type II, Obesity/BMI 30+ - Past Surgical History HEENT Surgical History: Reports: Tonsillectomy Social & Family History - Tobacco Use Smoking Status *Q: Current Every Day Smoker Years of Tobacco use: 15 Packs/Tins Daily: 1 Used Tobacco, but Quit: No Second Hand Smoke Exposure: Yes - Caffeine Use Caffeine Use: Reports: Soda - Alcohol Use Days Per Week of Alcohol Use: 0 - Recreational Drug Use Recreational Drug Use: Yes Drug Use in Last 12 Months: Yes Recreational Drug Type: Reports: Marijuana/Hashish Other Recreational Drug Type: 3 weeks ago Recreational Drug Use Frequency: Socially Recreational Drug Last Use: 3 weeks ago. ED ROS GENERAL - Review of Systems Review Of Systems: See Below Constitutional: Reports: No Symptoms HEENT: Reports: No Symptoms Respiratory: Reports: No Symptoms Cardiovascular: Reports: No Symptoms Endocrine: Reports: No Symptoms, Other (takes metformin for PCOS, glucose was 90 yesterday) GI/Abdominal: Reports: No Symptoms : Reports: Other (?menstrual spotting) Skin: Reports: No Symptoms ED EXAM, GI/ABD - Physical Exam Exam: See Below Exam Limited By: No Limitations General Appearance: Alert, WD/WN, No Apparent Distress, Obese Ears: Normal External Exam, Normal Canal, Hearing Grossly Normal, Normal TMs Nose: Normal Inspection, Normal Mucosa, No Blood Throat/Mouth: Normal Inspection, Normal Lips, Normal Teeth, Normal Gums, Normal Oropharynx, Normal Voice, No Airway Compromise Head: Atraumatic, Normocephalic Neck: Normal Inspection, Supple, Non-Tender, Full Range of Motion Respiratory/Chest: No Respiratory Distress, Lungs Clear, Normal Breath Sounds, No Accessory Muscle Use, Chest Non-Tender Cardiovascular: Normal Peripheral Pulses, Regular Rate, Rhythm, No Edema, No Gallop, No JVD, No Murmur, No Rub GI/Abdominal: Normal Bowel Sounds (Female) Exam: Normal External Exam, Normal Speculum Exam, Normal Bimanual Exam, Vaginal Bleeding (small amount of red blood noted from cervical os on exam ) Course - Vital Signs Last Recorded V/S: Last Vital Signs Temp 97.7 F 08/08/16 11:35 Pulse 82 08/08/16 11:35 Resp 14 08/08/16 11:35 BP 153/97 H 08/08/16 11:35 Pulse Ox 98 08/08/16 11:35 - Orders/Labs/Meds Labs: Laboratory Tests 08/08/16 08/08/16 Range/Units 12:08 13:07 PT 14.6 H (9.5-12.0) sec INR 1.36 H (0.80-1.20) Urine HCG, Qual Negative Departure - Departure Time of Disposition: 13:24 Disposition: Home, Self-Care 01 Condition: good Clinical Impression: Metrorrhagia - Discharge Information Referrals: Bibiana Russ NP [Primary Care Provider] - Forms: ED Department Discharge Additional Instructions: INR low. Urine test negative. Encouraged to take Coumadin 7.5mg 4 days a week and 5mg alternate days. Repeat INR per her primary care provider. Stressed med compliance. Encouraged continued smoking cessation techniques. Discussed the risk for her to getting . Strongly encouraged smoking cessation and control use. 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 Discussed multiple control options today with pt but she declines any at this time. Reassured that her bleeding does not appear to be related or coumadin related. Most likely just breakthrough bleeding. Pt voices understanding. Will followup with primary care if persists for STD testing vs pelvic ultrasound. - Problem List & Annotations (1) Metrorrhagia SNOMED Code(s): 55857021 Code(s): N92.1 - EXCESSIVE AND FREQUENT MENSTRUATION WITH IRREGULAR CYCLE Status: Acute Priority: Low Current Visit: Yes
== END 2016-08-08 13:39 | disposition home or self-care (01) ==
LOC: JP.ED 11:14
DX: N92.1 Excessive and frequent menstruation with irregular cycle (principal); F32.9 Major depressive disorder, single episode, unspecified; E11.9 Type 2 diabetes mellitus without complications; E66.9 Obesity, unspecified; F17.210 Nicotine dependence, cigarettes, uncomplicated; Z98.890 Other specified postprocedural states; Z68.30 Body mass index [BMI] 30.0-30.9, adult; Z88.0 Allergy status to penicillin; Z79.84 Long term (current) use of oral hypoglycemic drugs; Z79.899 Other long term (current) drug therapy; Z79.01 Long term (current) use of anticoagulants; Z86.711 Personal history of pulmonary embolism
CPT/HCPCS: 36415; 81025; 85610; 99284

== ENCOUNTER 2016-09-26 00:29 | Emergency (ER) | payer MEDICAID ==
[2016-09-26 01:09] VITALS: BP 132/97
[2016-09-26] MEDS ORDERED: Ketorolac 60 MG/2 ML SDV IM ONE (01:46)
--- NOTE | 2016-09-26 01:56 | EDM.PDOC ---
ED HPI GENERAL MEDICAL PROBLEM - General Chief Complaint: Lower Extremity Injury/Pain Stated Complaint: ROLLED RIGHT ANKLE Time Seen by Provider: 09/26/16 01:11 Source of Information: Reports: Patient History Limitations: Reports: No Limitations - History of Present Illness INITIAL COMMENTS - FREE TEXT/NARRATIVE: right ankle pain: this is a 31 year old female presents to ER after working a 2pm to 11:30 pm shift at [employer]. She has been on her feet all day. She is wearing a Ortho boot. -reports ankle injury on 09/23/2016, rolled her ankle in the morning, went to the ER at [place], [place].on evening on 09/23/16, Xrays were negative -given Ortho boot and one vicodin. -here today for increased pain and edema. Onset: Gradual Duration: Day(s): Location: Reports: Lower Extremity, Right Quality: Reports: Burning Severity: Moderate Improves with: Reports: Rest Worsens with: Reports: Movement Associated Symptoms: Reports: No Other Symptoms Treatments RN CLINICAL COORDINATOR: Reports: Acetaminophen, NSAIDS Right Ankle Pain Score (Numeric/FACES): 9 - Related Data Allergies Allergy/AdvReac Type Severity Reaction Status Date / Time Penicillins Allergy Unknown Other Verified 09/26/16 02:17 Home Meds: Home Meds Albuterol Sulfate [Ventolin Hfa] 2 inhalation INH DAILY 07/27/15 [History] Cholecalciferol (Vitamin D3) [Vitamin D] 5,000 unit PO ASDIRECTED 06/09/16 [ History] metFORMIN HCl [Metformin HCl ER] 500 mg PO DAILY 06/09/16 [History] ALPRAZolam [Alprazolam] 0.25 mg PO BID PRN 08/08/16 [History] Venlafaxine [Effexor] 100 mg PO DAILY 08/08/16 [History] Warfarin [Coumadin] 10 mg PO ASDIRECTED 08/08/16 [History] Amphetamine/Dextroamphetamine [Adderall] 10 mg PO BID 09/26/16 [History] Eszopiclone [Lunesta] 1 mg PO BEDTIME 09/26/16 [History] Past Medical History Respiratory History: Reports: PE Other Respiratory History: pulmonary emboli Musculoskeletal History: Reports: Fracture Neurological History: Reports: Concussion Psychiatric History: Reports: Depression Endocrine/Metabolic History: Reports: Diabetes, Type II, Obesity/BMI 30+ - Past Surgical History HEENT Surgical History: Reports: Tonsillectomy Social & Family History - Tobacco Use Smoking Status *Q: Current Every Day Smoker Years of Tobacco use: 15 Packs/Tins Daily: 1 Used Tobacco, but Quit: No Second Hand Smoke Exposure: Yes - Caffeine Use Caffeine Use: Reports: Soda - Alcohol Use Days Per Week of Alcohol Use: 0 - Recreational Drug Use Recreational Drug Use: Yes Drug Use in Last 12 Months: Yes Recreational Drug Type: Reports: Marijuana/Hashish Other Recreational Drug Type: 3 weeks ago Recreational Drug Use Frequency: Socially Recreational Drug Last Use: 3 weeks ago. Review of Systems - Review of Systems Review Of Systems: See Below Constitutional: Reports: Other (right ankle pain) Musculoskeletal: Reports: Leg Pain, Joint Pain (rt ankle), Joint Swelling Skin: Reports: Bruising (lateral ankle) ED EXAM, GENERAL - Physical Exam Exam: See Below Exam Limited By: No Limitations General Appearance: Alert, WD/WN, Mild Distress Extremities: Joint Swelling (right), Limited Range of Motion (right ankle), Other (bruising) Skin Exam: Warm, Dry, Intact, Ecchymosis (rt ankle) Lymphatic: No Adenopathy Course - Vital Signs Last Recorded V/S: Last Vital Signs Temp 35.9 C 09/26/16 02:23 Pulse 103 H 09/26/16 02:23 Resp 16 09/26/16 02:23 BP 132/97 H 09/26/16 02:23 Pulse Ox 96 09/26/16 02:23 - Orders/Labs/Meds Orders: Active Orders 24 hr Category Date Time Status Ankle Min 3V Rt [CR] Stat Exams 09/26/16 01:20 Taken Meds: Medications Discontinued Medications Generic Name Dose Route Start Last Admin Trade Name Freq PRN Reason Stop Dose Admin Ketorolac Tromethamine 60 mg 09/26/16 01:46 09/26/16 02:18 Toradol IM 09/26/16 01:47 60 mg ONETIME ONE Administration Departure - Departure Time of Disposition: 02:46 Disposition: Home, Self-Care 01 Condition: Good Clinical Impression: Right ankle sprain Qualifiers: Encounter type: initial encounter - Discharge Information Instructions: Ankle Sprain, [id number] Referrals: Bibiana Russ NP [Primary Care Provider] - Forms: ED Department Discharge Care Plan Goals: Ankle sprain -medicate for pain with Tylenol and Motrin as directed -Instyl medication; Tylenol with codeine one every 4 to 6 hours as needed for pain #15 -advise to rest, wear ortho boot while ambulating, ice for comfort -advise to rest ankle as much as possible for the next 3 to 5 days. follow up with Primary Care for recheck of ankle next week. - Problem List & Annotations (1) Right ankle sprain SNOMED Code(s): 60257821 Code(s): S93.401A - SPRAIN OF UNSPECIFIED LIGAMENT OF RIGHT ANKLE, INIT ENCNTR Status: Acute Priority: High Qualifiers: Encounter type: initial encounter - Problem List Review Problem List Initiated/Reviewed/Updated: Yes - My Orders Last 24 Hours: My Active Orders 09/26/16 01:20 Ankle Min 3V Rt [CR] Stat - Assessment/Plan Last 24 Hours: My Active Orders 09/26/16 01:20 Ankle Min 3V Rt [CR] Stat Plan: Ankle sprain -medicate for pain with Tylenol and Motrin as directed -Instyl medication; Tylenol with codeine one every 4 to 6 hours as needed for pain #15 -advise to rest, wear ortho boot while ambulating, ice for comfort -advise to rest ankle as much as possible for the next 3 to 5 days. follow up with Primary Care for recheck of ankle next week.
--- NOTE | 2016-09-28 10:51 | CR ---
Ankle Min 3V Rt INDICATION: pain right lateral malleous FINDINGS: Negative right ankle.
== END 2016-09-26 02:33 | disposition home or self-care (01) ==
LOC: JP.ED 00:29
DX: S93.401A Sprain of unspecified ligament of right ankle, initial encounter (principal); F32.9 Major depressive disorder, single episode, unspecified; E11.9 Type 2 diabetes mellitus without complications; E66.9 Obesity, unspecified; F17.210 Nicotine dependence, cigarettes, uncomplicated; Z88.0 Allergy status to penicillin; X50.9XXA Other and unspecified overexertion or strenuous movements or postures, initial encounter; Z68.42 Body mass index [BMI] 45.0-49.9, adult; Z79.899 Other long term (current) drug therapy
CPT/HCPCS: 73610; 96372; 99284; J1885

== ENCOUNTER 2016-10-30 15:37 | Emergency (ER) | payer MEDICAID ==
[2016-10-30] MEDS ORDERED: Sodium Chloride 0.9% 10 ML Syringe FLUSH PRN ×2 (16:19→16:40)
[2016-10-30] MEDS ORDERED: Sodium Chloride 0.9% 1,000 ML IV ONE (16:19)
--- NOTE | 2016-10-30 16:23 | EDM.PDOC ---
ED HPI GENERAL MEDICAL PROBLEM - General Chief Complaint: Respiratory Problem Stated Complaint: MEDICAL Time Seen by Provider: 10/30/16 16:12 Source of Information: Reports: Patient, Family, Old Records, RN Notes Reviewed History Limitations: Reports: No Limitations - History of Present Illness INITIAL COMMENTS - FREE TEXT/NARRATIVE: 31-year-old female presents emergency department day complaint of shortness of breath, she was sent over by her primary care provider in the clinic for increasing pleural effusion, she does have a history of factor V Leiden of which she has had pulmonary embolism in the past currently is on Coumadin but admits she has been having difficulty remaining therapeutic on that medication. She states she's had difficulty breathing over the last week denies any fevers Left Upper Back Pain Score (Numeric/FACES): 3 - Related Data Allergies Allergy/AdvReac Type Severity Reaction Status Date / Time Penicillins Allergy Unknown Other Verified 10/30/16 16:02 Home Meds: Home Meds Albuterol Sulfate [Ventolin Hfa] 2 inhalation INH DAILY 07/27/15 [History] Cholecalciferol (Vitamin D3) [Vitamin D] 5,000 unit PO ASDIRECTED 06/09/16 [ History] metFORMIN HCl [Metformin HCl ER] 500 mg PO DAILY 06/09/16 [History] Venlafaxine [Effexor] 200 mg PO DAILY 08/08/16 [History] Warfarin [Coumadin] 5 mg PO ASDIRECTED 08/08/16 [History] Amphetamine/Dextroamphetamine [Adderall] 20 mg PO DAILY 09/26/16 [History] Eszopiclone [Lunesta] 2 mg PO BEDTIME 09/26/16 [History] Dextroamphetamine/Amphetamine [Adderall 10 mg Tablet] 1 tab PO BID 10/30/16 [ History] Liraglutide [Victoza] 0.6 mg SUBCUT DAILY 10/30/16 [History] Past Medical History Respiratory History: Reports: PE Other Respiratory History: pulmonary emboli Musculoskeletal History: Reports: Fracture Neurological History: Reports: Concussion Psychiatric History: Reports: Depression Endocrine/Metabolic History: Reports: Diabetes, Type II, Obesity/BMI 30+ Hematologic History: Reports: Blood Transfusion(s), Other (See Below) Other Hematologic History: factor V - Past Surgical History HEENT Surgical History: Reports: Tonsillectomy Respiratory Surgical History: Reports: Other (See Below) Other Respiratory Surgeries/Procedures: chest tube GI Surgical History: Reports: Cholecystectomy Social & Family History - Tobacco Use Smoking Status *Q: Never Smoker Years of Tobacco use: 15 Packs/Tins Daily: 1 Used Tobacco, but Quit: No Second Hand Smoke Exposure: Yes - Caffeine Use Caffeine Use: Reports: Soda - Alcohol Use Days Per Week of Alcohol Use: 0 - Recreational Drug Use Recreational Drug Use: No Drug Use in Last 12 Months: Yes Recreational Drug Type: Reports: Marijuana/Hashish Other Recreational Drug Type: 3 weeks ago Recreational Drug Use Frequency: Socially Recreational Drug Last Use: 3 weeks ago. ED ROS GENERAL - Review of Systems Review Of Systems: See Below Constitutional: Denies: Fever, Chills HEENT: Reports: No Symptoms Respiratory: Reports: Shortness of Breath, Wheezing. Denies: Cough, Sputum Cardiovascular: Reports: No Symptoms GI/Abdominal: Reports: No Symptoms : Reports: No Symptoms ED EXAM, GENERAL - Physical Exam Exam: See Below Free Text/Narrative:: General: Female, not in any distress, alert and oriented x3 HEENT: head is atraumatic normocephalic, eyes pupils equal round reactive to light, sclera clear no conjunctivitis appreciated. Ears tympanic membranes clear and manriquez landmarks and light reflex are present bilaterally canals are clear. Nose no septal deviation, nares are clear, no blood present. Mouth mucosa is moist and pink no erythema or exudate noted in soft palate, tongue is midline uvula is midline, dentition is intact. Neck: Supple no thyromegaly no tracheal deviation. Nodes: Cervical nodes subclavicular nodes nontender no palpable lymphadenopathy noted. Lungs: Wheezing mid to lower lung pollock bilaterally CV: Regular rate and rhythm S1 and S2 appreciated no murmurs rubs or gallops noted. Abdomen: Soft, nontender, no palpable masses or organomegaly appreciated, no distention no guarding bowel sounds are present, . Neuro: Cranial nerves II through XII grossly intact Skin: Warm and dry, intact Extremities: No lower extremity edema appreciated, . Course - Vital Signs Last Recorded V/S: Last Vital Signs Temp 97.8 F 10/30/16 16:00 Pulse 93 10/30/16 17:47 Resp 16 10/30/16 16:00 BP 97/49 L 10/30/16 17:47 Pulse Ox 93 L 10/30/16 17:47 - Orders/Labs/Meds Orders: Active Orders 24 hr Category Date Time Status EKG Documentation Completion [RC] ASDIRECTED Care 10/30/16 17:03 Active Peripheral IV Care [RC] . DIRECTED Care 10/30/16 16:20 Active Vital Signs [RC] Q1H Care 10/30/16 17:41 Active Ang Chest [CT] Urgent Exams 10/30/16 16:19 Taken CULTURE BLOOD [BC] Urgent Lab 10/30/16 17:45 Received CULTURE BLOOD [BC] Urgent Lab 10/30/16 17:50 Received Iopamidol [Isovue-370 (76%)] Med 10/30/16 16:45 Active 100 ml IV . DIRECTED Potassium Chloride 20 meq Med 10/30/16 17:30 Active Lidocaine 1% [Xylocaine 1%] 2 ml Sodium Chloride 0.9% [Normal Saline] 100 ml IV Q2H Sodium Chloride 0.9% [Saline Flush] Med 10/30/16 16:19 Active 10 ml FLUSH ASDIRECTED PRN Sodium Chloride 0.9% [Saline Flush] Med 10/30/16 16:40 Active 10 ml FLUSH ONETIME PRN Blood Culture x2 Reflex Set [OM.PC] Urgent Oth 10/30/16 17:41 Ordered Peripheral IV Insertion Adult [OM.PC] Urgent Oth 10/30/16 16:19 Ordered EKG 12 Lead [EK] Stat Ther 10/30/16 17:03 Ordered Medication Orders Potassium Chloride 20 meq/Lidocaine HCl 2 ml/ Sodium Chloride 112 mls @ 56 mls/ hr IV Q2H MACKENZIE Stop: 10/30/16 21:29 Last Admin: 10/30/16 17:23 Dose: 56 mls/hr Iopamidol (Isovue-370 (76%)) 100 ml IV . DIRECTED MACKENZIE Last Admin: 10/30/16 16:52 Dose: 100 ml Sodium Chloride (Saline Flush) 10 ml FLUSH ASDIRECTED PRN PRN Reason: Keep Vein Open Last Admin: 10/30/16 17:12 Dose: 10 ml Sodium Chloride (Saline Flush) 10 ml FLUSH ONETIME PRN PRN Reason: PER RADIOLOGY PROTOCOL Last Admin: 10/30/16 16:51 Dose: 10 ml Labs: Laboratory Tests 08/11/17 08/11/17 08/11/17 Range/Units 16:34 16:34 16:34 WBC 19.4 H (4.5-11.0) K/uL RBC 5.26 (3.30-5.50) M/uL Hgb 15.0 (12.0-15.0) g/dL Hct 43.6 (36.0-48.0) % MCV 83 (80-98) fL MCH 29 (27-31) pg MCHC 34 (32-36) % Plt Count 186 (150-400) K/uL Neut % (Auto) 73 H (36-66) % Lymph % (Auto) 17 L (24-44) % Jackson % (Auto) 7 H (2-6) % Eos % (Auto) 2 (2-4) % Baso % (Auto) 1 (0-1) % PT 10.4 (9.5-12.0) sec INR 0.97 (0.80-1.20) APTT 30.0 (27.0-36.0) sec Sodium 143 (140-148) mmol/L Potassium 2.5 L* (3.6-5.2) mmol/L Chloride 102 (100-108) mmol/L Carbon Dioxide 31 (21-32) mmol/L Anion Gap 12.5 (5.0-14.0) mmol/L BUN 5 L (7-18) mg/dL Creatinine 1.0 (0.6-1.0) mg/dL Est Cr Clr Drug Dosing 82.98 mL/min Estimated GFR (MDRD) > 60 (>60) Glucose 156 H (74-106) mg/dL Lactic Acid (0.4-2.0) mmol/L Calcium 8.8 (8.5-10.1) mg/dL Total Bilirubin 0.4 (0.2-1.0) mg/dL AST 18 (15-37) U/L ALT 30 (12-78) U/L Alkaline Phosphatase 72 (46-116) U/L C-Reactive Protein (0.0-0.3) mg/dL Total Protein 7.8 (6.4-8.2) g/dL Albumin 3.5 (3.4-5.0) g/dL Globulin 4.3 H (2.3-3.5) g/dL Albumin/Globulin Ratio 0.8 L (1.2-2.2) 08/11/17 08/11/17 Range/Units 17:45 17:45 WBC (4.5-11.0) K/uL RBC (3.30-5.50) M/uL Hgb (12.0-15.0) g/dL Hct (36.0-48.0) % MCV (80-98) fL MCH (27-31) pg MCHC (32-36) % Plt Count (150-400) K/uL Neut % (Auto) (36-66) % Lymph % (Auto) (24-44) % Jackson % (Auto) (2-6) % Eos % (Auto) (2-4) % Baso % (Auto) (0-1) % PT (9.5-12.0) sec INR (0.80-1.20) APTT (27.0-36.0) sec Sodium (140-148) mmol/L Potassium (3.6-5.2) mmol/L Chloride (100-108) mmol/L Carbon Dioxide (21-32) mmol/L Anion Gap (5.0-14.0) mmol/L BUN (7-18) mg/dL Creatinine (0.6-1.0) mg/dL Est Cr Clr Drug Dosing mL/min Estimated GFR (MDRD) (>60) Glucose (74-106) mg/dL Lactic Acid 1.8 (0.4-2.0) mmol/L Calcium (8.5-10.1) mg/dL Total Bilirubin (0.2-1.0) mg/dL AST (15-37) U/L ALT (12-78) U/L Alkaline Phosphatase (46-116) U/L C-Reactive Protein 1.13 H (0.0-0.3) mg/dL Total Protein (6.4-8.2) g/dL Albumin (3.4-5.0) g/dL Globulin (2.3-3.5) g/dL Albumin/Globulin Ratio (1.2-2.2) Meds: Medications Generic Name Dose Route Start Last Admin Trade Name Freq PRN Reason Stop Dose Admin Potassium Chloride 20 meq/ 112 mls @ 56 mls/hr 10/30/16 17:30 10/30/16 17:23 Lidocaine HCl 2 ml/ Sodium IV 10/30/16 21:29 56 mls/hr Chloride Q2H MACKENZIE Administration Iopamidol 100 ml 10/30/16 16:45 10/30/16 16:52 Isovue-370 (76%) IV 100 ml . DIRECTED MACKENZIE Administration Sodium Chloride 10 ml 10/30/16 16:19 10/30/16 17:12 Saline Flush FLUSH 10 ml ASDIRECTED PRN Administration Keep Vein Open Sodium Chloride 10 ml 10/30/16 16:40 10/30/16 16:51 Saline Flush FLUSH 10 ml ONETIME PRN Administration PER RADIOLOGY PROTOCOL Discontinued Medications Generic Name Dose Route Start Last Admin Trade Name Freq PRN Reason Stop Dose Admin Sodium Chloride 1,000 mls @ 500 mls/hr 10/30/16 16:19 10/30/16 17:10 Normal Saline IV 10/30/16 18:18 500 mls/hr ASDIRECTED ONE Administration Sodium Chloride 100 mls @ 3 mls/sec 10/30/16 16:40 10/30/16 16:51 Normal Saline IV 10/30/16 16:41 3 mls/sec ONETIME ONE Administration Potassium Chloride 40 meq 10/30/16 18:22 Klor-Con M20 PO 10/30/16 18:23 ONETIME ONE Departure - Departure Time of Disposition: 20:41 Disposition: Home, Self-Care 01 Condition: Fair Clinical Impression: Pneumonitis - Discharge Information Forms: ED Department Discharge Additional Instructions: Continue regular medications I will contact you on Wednesday with a referral to pulmonary medicine, call return to the emergency department worsening of symptoms - My Orders Last 24 Hours: My Active Orders 10/30/16 16:19 Ang Chest [CT] Urgent Sodium Chloride 0.9% [Saline Flush] 10 ml FLUSH ASDIRECTED PRN Peripheral IV Insertion Adult [OM.PC] Urgent 10/30/16 16:20 Peripheral IV Care [RC] . DIRECTED 10/30/16 16:40 Sodium Chloride 0.9% [Saline Flush] 10 ml FLUSH ONETIME PRN 10/30/16 16:45 Iopamidol [Isovue-370 (76%)] 100 ml IV . DIRECTED 10/30/16 17:03 EKG Documentation Completion [RC] ASDIRECTED EKG 12 Lead [EK] Stat 10/30/16 17:30 Potassium Chloride 20 meq Lidocaine 1% [Xylocaine 1%] 2 ml Sodium Chloride 0.9 % [Normal Saline] 100 ml IV Q2H 10/30/16 17:41 Vital Signs [RC] Q1H Blood Culture x2 Reflex Set [OM.PC] Urgent 10/30/16 17:45 CULTURE BLOOD [BC] Urgent 10/30/16 17:50 CULTURE BLOOD [BC] Urgent - Assessment/Plan Last 24 Hours: My Active Orders 10/30/16 16:19 Ang Chest [CT] Urgent Sodium Chloride 0.9% [Saline Flush] 10 ml FLUSH ASDIRECTED PRN Peripheral IV Insertion Adult [OM.PC] Urgent 10/30/16 16:20 Peripheral IV Care [RC] . DIRECTED 10/30/16 16:40 Sodium Chloride 0.9% [Saline Flush] 10 ml FLUSH ONETIME PRN 10/30/16 16:45 Iopamidol [Isovue-370 (76%)] 100 ml IV . DIRECTED 10/30/16 17:03 EKG Documentation Completion [RC] ASDIRECTED EKG 12 Lead [EK] Stat 10/30/16 17:30 Potassium Chloride 20 meq Lidocaine 1% [Xylocaine 1%] 2 ml Sodium Chloride 0.9 % [Normal Saline] 100 ml IV Q2H 10/30/16 17:41 Vital Signs [RC] Q1H Blood Culture x2 Reflex Set [OM.PC] Urgent 10/30/16 17:45 CULTURE BLOOD [BC] Urgent 10/30/16 17:50 CULTURE BLOOD [BC] Urgent Plan: Assessment Acuity = acute Site and laterality = nonspecific pneumonitis complicating the patient with known history of factor V on anticoagulation also history of pulmonary embolism Etiology = unclear etiology Manifestations = dyspnea Location of injury = Home Lab values = WBC elevated 19.4 consistent leukocytosis baseline is around 17 INR subtherapeutic at 0.97 potassium low at 2.5 consistent hypokalemia CRP mildly elevated 1.13 EKG demonstrates a sinus rhythm CT scan describes the lesion above left lower lobe Plan I did consult her primary care provider discussed the case also consult at [facility] unfortunately no exit booth agent is available until Wednesday, I will contacts pulmonary on Wednesday for a consult in the meantime I will send her home after potassium replacement and I will contact her with the referral Patient was in agreement with the plan all questions were answered, they were instructed to return to the emergency department or call for worsening symptoms. This note was dictated using [employer] voice recognition software please call with any questions.
[2016-10-30] MEDS ORDERED: Sodium Chloride 0.9% 100 ML IV ONE (16:40)
[2016-10-30] MEDS ORDERED: Iopamidol 755 Mg/ML 100 ML Bottle IV SCH (16:45)
[2016-10-30] MEDS ORDERED: Potassium Chloride 40 MEQ in Premix Bag 1 BAG IV ONE (17:02)
[2016-10-30] MEDS: Potassium Chloride 20 MEQ, Lidocaine 1% 2 ML in Sodium Chloride 0.9% 100 ML IV SCH ×2 (17:23→19:25)
[2016-10-30] MEDS ORDERED: Potassium Chloride 20 MEQ Tab.ER PO ONE (18:22)
[2016-10-30 21:42] VITALS: BP 110/46
== END 2016-10-30 21:47 | disposition home or self-care (01) ==
LOC: JP.ED 15:37
DX: J18.9 Pneumonia, unspecified organism (principal); D68.2 Hereditary deficiency of other clotting factors; F32.9 Major depressive disorder, single episode, unspecified; E11.9 Type 2 diabetes mellitus without complications; E66.9 Obesity, unspecified; Z68.41 Body mass index [BMI] 40.0-44.9, adult; Z88.0 Allergy status to penicillin; Z79.84 Long term (current) use of oral hypoglycemic drugs; Z79.01 Long term (current) use of anticoagulants; Z79.899 Other long term (current) drug therapy; Z90.49 Acquired absence of other specified parts of digestive tract; Z98.890 Other specified postprocedural states; Z86.711 Personal history of pulmonary embolism
CPT/HCPCS: 36415; 71275; 80053; 83605; 85025; 85610; 85730; 86140; 87040; 93005; 96361; 96374; 99285; A9270; J3480; J7030; J7040; J7050; Q9967

== ENCOUNTER 2016-11-02 00:36 | Emergency (ER) | payer MEDICAID ==
[2016-11-02] MEDS ORDERED: Ketorolac 60 MG/2 ML SDV IM ONE (01:32)
--- NOTE | 2016-11-02 01:59 | EDM.PDOC ---
<Hattie Jones - Last Filed: 11/02/16 07:06> ED HPI GENERAL MEDICAL PROBLEM - General Chief Complaint: Respiratory Problem Stated Complaint: DIFFICULTY BREATHING Time Seen by Provider: 11/02/16 01:15 Source of Information: Reports: Patient History Limitations: Reports: No Limitations - History of Present Illness INITIAL COMMENTS - FREE TEXT/NARRATIVE: Pt arrived with sob. She is not willing to communicate well. She states she has alot of things going on right now. Her boyfriend is in [place] and he has kidney failure. She is very upset about that. Onset: Gradual Duration: Day(s): Location: Reports: Chest Associated Symptoms: Reports: Cough, Shortness of Breath back Pain Score (Numeric/FACES): 7 - Related Data Allergies Allergy/AdvReac Type Severity Reaction Status Date / Time Penicillins Allergy Unknown Other Verified 10/30/16 16:02 Home Meds: Home Meds Albuterol Sulfate [Ventolin Hfa] 2 inhalation INH DAILY 07/27/15 [History] Cholecalciferol (Vitamin D3) [Vitamin D] 5,000 unit PO ASDIRECTED 06/09/16 [ History] metFORMIN HCl [Metformin HCl ER] 500 mg PO DAILY 06/09/16 [History] Venlafaxine [Effexor] 200 mg PO DAILY 08/08/16 [History] Warfarin [Coumadin] 5 mg PO ASDIRECTED 08/08/16 [History] Amphetamine/Dextroamphetamine [Adderall] 20 mg PO DAILY 09/26/16 [History] Eszopiclone [Lunesta] 2 mg PO BEDTIME 09/26/16 [History] Dextroamphetamine/Amphetamine [Adderall 10 mg Tablet] 1 tab PO BID 10/30/16 [ History] Liraglutide [Victoza] 0.6 mg SUBCUT DAILY 10/30/16 [History] Albuterol Sulfate 1 inhalation INH Q4H PRN 11/02/16 [History] Past Medical History Respiratory History: Reports: PE Other Respiratory History: pulmonary emboli 10 yrs ago Musculoskeletal History: Reports: Fracture Neurological History: Reports: Concussion Psychiatric History: Reports: ADHD, Depression Endocrine/Metabolic History: Reports: Diabetes, Type II, Obesity/BMI 30+ Hematologic History: Reports: Blood Transfusion(s), Other (See Below) Other Hematologic History: factor V leiden - Past Surgical History HEENT Surgical History: Reports: Tonsillectomy Respiratory Surgical History: Reports: Other (See Below) Other Respiratory Surgeries/Procedures: chest tube GI Surgical History: Reports: Cholecystectomy Social & Family History - Tobacco Use Smoking Status *Q: Never Smoker Years of Tobacco use: 15 Packs/Tins Daily: 1 Used Tobacco, but Quit: No Second Hand Smoke Exposure: Yes - Caffeine Use Caffeine Use: Reports: Soda - Alcohol Use Days Per Week of Alcohol Use: 0 - Recreational Drug Use Recreational Drug Use: No Drug Use in Last 12 Months: Yes Recreational Drug Type: Reports: Marijuana/Hashish Other Recreational Drug Type: 3 weeks ago Recreational Drug Use Frequency: Socially Recreational Drug Last Use: 3 weeks ago. ED ROS GENERAL - Review of Systems Review Of Systems: See Below Constitutional: Reports: No Symptoms, Weakness HEENT: Reports: No Symptoms Respiratory: Reports: Shortness of Breath Cardiovascular: Reports: No Symptoms Endocrine: Reports: No Symptoms GI/Abdominal: Reports: No Symptoms : Reports: No Symptoms ED EXAM, GENERAL - Physical Exam Exam: See Below Free Text/Narrative:: pt arrived with weakness and feeling totally fatiqued. Her boyfriend is in [place] with sepsis and she is very upset about that. She has felt very ill. She did work all day today. She has not had a fever. When she got here she was so fatiqued that she would bearly speak with us Exam Limited By: No Limitations General Appearance: Alert Ears: Normal TMs Nose: Normal Inspection Throat/Mouth: Normal Inspection Head: Atraumatic Respiratory/Chest: No Respiratory Distress Cardiovascular: Regular Rate, Rhythm GI/Abdominal: Soft, Non-Tender (Female) Exam: Deferred Rectal (Female) Exam: Deferred Back Exam: Normal Inspection Extremities: Normal Inspection Neurological: Alert, Inattentive, Other (pt does not communicate well. ) Psychiatric: Depressed Mood, Other ( She states she feels ill. ) Course - Vital Signs Last Recorded V/S: Last Vital Signs Temp 96.6 F 11/02/16 09:53 Pulse 76 11/02/16 09:53 Resp 16 11/02/16 09:53 BP 119/71 11/02/16 09:53 Pulse Ox 93 L 11/02/16 09:53 - Orders/Labs/Meds Orders: Active Orders 24 hr Category Date Time Status RT Aerosol Therapy [RC] ASDIRECTED Care 11/02/16 02:13 Active Sodium Chloride 0.9% [Normal Saline] 1,000 ml Med 11/02/16 02:45 Active IV ASDIRECTED Medication Orders Sodium Chloride (Normal Saline) 1,000 mls @ 400 mls/hr IV ASDIRECTED MACKENZIE Last Admin: 11/02/16 05:32 Dose: 400 mls/hr Infusion: 11/02/16 05:26 Dose: 400 mls/hr Admin: 11/02/16 02:56 Dose: 400 mls/hr Labs: Laboratory Tests 11/02/16 11/02/16 11/02/16 Range/Units 01:45 01:45 02:00 WBC 21.5 H (4.5-11.0) K/uL RBC 4.81 (3.30-5.50) M/uL Hgb 13.7 (12.0-15.0) g/dL Hct 41.0 (36.0-48.0) % MCV 85 (80-98) fL MCH 29 (27-31) pg MCHC 33 (32-36) % Plt Count 179 (150-400) K/uL Add Manual Diff Yes Neutrophils % (Manual) 69 H (36-66) % Lymphocytes % (Manual) 24 (24-44) % Monocytes % (Manual) 4 (2-6) % Eosinophils % (Manual) 3 (2-4) % PT (9.5-12.0) sec INR (0.80-1.20) D-Dimer, Quantitative (0.0-400.0) ng/mL Sodium 143 (140-148) mmol/L Potassium 3.4 L (3.6-5.2) mmol/L Chloride 106 (100-108) mmol/L Carbon Dioxide 27 (21-32) mmol/L Anion Gap 13.4 (5.0-14.0) mmol/L BUN 4 L (7-18) mg/dL Creatinine 0.7 (0.6-1.0) mg/dL Est Cr Clr Drug Dosing 119.01 mL/min Estimated GFR (MDRD) > 60 (>60) Glucose 97 (74-106) mg/dL Lactic Acid 1.7 (0.4-2.0) mmol/L Calcium 8.4 L (8.5-10.1) mg/dL Total Bilirubin 0.1 L D (0.2-1.0) mg/dL AST 14 L (15-37) U/L ALT 22 (12-78) U/L Alkaline Phosphatase 69 (46-116) U/L C-Reactive Protein (0.0-0.3) mg/dL Total Protein 7.2 (6.4-8.2) g/dL Albumin 3.4 (3.4-5.0) g/dL Globulin 3.8 H (2.3-3.5) g/dL Albumin/Globulin Ratio 0.9 L (1.2-2.2) TSH, Ultra Sensitive (0.358-3.740) uIU/mL Urine Color Urine Appearance Urine pH (4.5-8.0) Ur Specific Platinum (1.008-1.030) Urine Protein (NEGATIVE) mg/dL Urine Glucose (UA) (NEGATIVE) mg/dL Urine Ketones (NEGATIVE) mg/dL Urine Occult Blood (NEGATIVE) Urine Nitrite (NEGATIVE) Urine Bilirubin (NEGATIVE) Urine Urobilinogen (NORMAL) mg/dL Ur Leukocyte Esterase (NEGATIVE) Urine RBC (0-5) Urine WBC (0-5) Ur Epithelial Cells Amorphous Sediment Urine Bacteria Urine Mucus Urine Opiates Screen (NEGATIVE) Ur Oxycodone Screen (NEGATIVE) Urine Methadone Screen (NEGATIVE) Ur Propoxyphene Screen (NEGATIVE) Ur Barbiturates Screen (NEGATIVE) Ur Tricyclics Screen (NEGATIVE) Ur Phencyclidine Scrn (NEGATIVE) Ur Amphetamine Screen (NEGATIVE) U Methamphetamines Scrn (NEGATIVE) Urine MDMA Screen (NEGATIVE) U Benzodiazepines Scrn (NEGATIVE) U Cocaine Metab Screen (NEGATIVE) U Marijuana (THC) Screen (NEGATIVE) 11/02/16 11/02/16 11/02/16 Range/Units 02:00 07:04 08:00 WBC (4.5-11.0) K/uL RBC (3.30-5.50) M/uL Hgb (12.0-15.0) g/dL Hct (36.0-48.0) % MCV (80-98) fL MCH (27-31) pg MCHC (32-36) % Plt Count (150-400) K/uL Add Manual Diff Neutrophils % (Manual) (36-66) % Lymphocytes % (Manual) (24-44) % Monocytes % (Manual) (2-6) % Eosinophils % (Manual) (2-4) % PT (9.5-12.0) sec INR (0.80-1.20) D-Dimer, Quantitative < 100 (0.0-400.0) ng/mL Sodium (140-148) mmol/L Potassium (3.6-5.2) mmol/L Chloride (100-108) mmol/L Carbon Dioxide (21-32) mmol/L Anion Gap (5.0-14.0) mmol/L BUN (7-18) mg/dL Creatinine (0.6-1.0) mg/dL Est Cr Clr Drug Dosing mL/min Estimated GFR (MDRD) (>60) Glucose (74-106) mg/dL Lactic Acid (0.4-2.0) mmol/L Calcium (8.5-10.1) mg/dL Total Bilirubin (0.2-1.0) mg/dL AST (15-37) U/L ALT (12-78) U/L Alkaline Phosphatase (46-116) U/L C-Reactive Protein 0.36 H (0.0-0.3) mg/dL Total Protein (6.4-8.2) g/dL Albumin (3.4-5.0) g/dL Globulin (2.3-3.5) g/dL Albumin/Globulin Ratio (1.2-2.2) TSH, Ultra Sensitive 1.835 (0.358-3.740) uIU/mL Urine Color Urine Appearance Urine pH (4.5-8.0) Ur Specific Platinum (1.008-1.030) Urine Protein (NEGATIVE) mg/dL Urine Glucose (UA) (NEGATIVE) mg/dL Urine Ketones (NEGATIVE) mg/dL Urine Occult Blood (NEGATIVE) Urine Nitrite (NEGATIVE) Urine Bilirubin (NEGATIVE) Urine Urobilinogen (NORMAL) mg/dL Ur Leukocyte Esterase (NEGATIVE) Urine RBC (0-5) Urine WBC (0-5) Ur Epithelial Cells Amorphous Sediment Urine Bacteria Urine Mucus Urine Opiates Screen (NEGATIVE) Ur Oxycodone Screen (NEGATIVE) Urine Methadone Screen (NEGATIVE) Ur Propoxyphene Screen (NEGATIVE) Ur Barbiturates Screen (NEGATIVE) Ur Tricyclics Screen (NEGATIVE) Ur Phencyclidine Scrn (NEGATIVE) Ur Amphetamine Screen (NEGATIVE) U Methamphetamines Scrn (NEGATIVE) Urine MDMA Screen (NEGATIVE) U Benzodiazepines Scrn (NEGATIVE) U Cocaine Metab Screen (NEGATIVE) U Marijuana (THC) Screen (NEGATIVE) 11/02/16 11/02/16 11/02/16 Range/Units 08:00 09:57 09:57 WBC (4.5-11.0) K/uL RBC (3.30-5.50) M/uL Hgb (12.0-15.0) g/dL Hct (36.0-48.0) % MCV (80-98) fL MCH (27-31) pg MCHC (32-36) % Plt Count (150-400) K/uL Add Manual Diff Neutrophils % (Manual) (36-66) % Lymphocytes % (Manual) (24-44) % Monocytes % (Manual) (2-6) % Eosinophils % (Manual) (2-4) % PT 11.7 (9.5-12.0) sec INR 1.09 (0.80-1.20) D-Dimer, Quantitative (0.0-400.0) ng/mL Sodium (140-148) mmol/L Potassium (3.6-5.2) mmol/L Chloride (100-108) mmol/L Carbon Dioxide (21-32) mmol/L Anion Gap (5.0-14.0) mmol/L BUN (7-18) mg/dL Creatinine (0.6-1.0) mg/dL Est Cr Clr Drug Dosing mL/min Estimated GFR (MDRD) (>60) Glucose (74-106) mg/dL Lactic Acid (0.4-2.0) mmol/L Calcium (8.5-10.1) mg/dL Total Bilirubin (0.2-1.0) mg/dL AST (15-37) U/L ALT (12-78) U/L Alkaline Phosphatase (46-116) U/L C-Reactive Protein (0.0-0.3) mg/dL Total Protein (6.4-8.2) g/dL Albumin (3.4-5.0) g/dL Globulin (2.3-3.5) g/dL Albumin/Globulin Ratio (1.2-2.2) TSH, Ultra Sensitive (0.358-3.740) uIU/mL Urine Color Yellow Urine Appearance Cloudy Urine pH 5.0 (4.5-8.0) Ur Specific Platinum 1.030 (1.008-1.030) Urine Protein 30 H (NEGATIVE) mg/dL Urine Glucose (UA) Normal (NEGATIVE) mg/dL Urine Ketones Negative (NEGATIVE) mg/dL Urine Occult Blood Negative (NEGATIVE) Urine Nitrite Negative (NEGATIVE) Urine Bilirubin Small (NEGATIVE) Urine Urobilinogen 1 (NORMAL) mg/dL Ur Leukocyte Esterase Negative (NEGATIVE) Urine RBC Not seen (0-5) Urine WBC Not seen (0-5) Ur Epithelial Cells Many Amorphous Sediment Rare Urine Bacteria Rare Urine Mucus Many Urine Opiates Screen Positive H (NEGATIVE) Ur Oxycodone Screen Negative (NEGATIVE) Urine Methadone Screen Negative (NEGATIVE) Ur Propoxyphene Screen Negative (NEGATIVE) Ur Barbiturates Screen Negative (NEGATIVE) Ur Tricyclics Screen Positive H (NEGATIVE) Ur Phencyclidine Scrn Negative (NEGATIVE) Ur Amphetamine Screen Positive H (NEGATIVE) U Methamphetamines Scrn Positive H (NEGATIVE) Urine MDMA Screen Negative (NEGATIVE) U Benzodiazepines Scrn Negative (NEGATIVE) U Cocaine Metab Screen Negative (NEGATIVE) U Marijuana (THC) Screen Positive H (NEGATIVE) Meds: Medications Generic Name Dose Route Start Last Admin Trade Name Freq PRN Reason Stop Dose Admin Sodium Chloride 1,000 mls @ 400 mls/hr 11/02/16 02:45 11/02/16 05:32 Normal Saline IV 400 mls/hr ASDIRECTED MACKENZIE Administration Discontinued Medications Generic Name Dose Route Start Last Admin Trade Name Freq PRN Reason Stop Dose Admin Albuterol 2.5 mg 11/02/16 02:12 11/02/16 02:28 Proventil Neb Soln NEB 11/02/16 02:13 2.5 mg ONETIME ONE Administration Azithromycin 500 mg 11/02/16 09:00 11/02/16 02:59 Zithromax PO 500 mg DAILY MACKENZIE Administration Azithromycin Confirm 11/02/16 02:46 11/02/16 02:59 Zithromax Administered 11/02/16 02:47 Not Given Dose 500 mg .ROUTE .STK-MED ONE Ceftriaxone Sodium 1 gm/ 50 mls @ 100 mls/hr 11/02/16 02:33 11/02/16 02:58 Sodium Chloride IV 11/02/16 03:02 100 mls/hr ONETIME ONE Administration Ketorolac Tromethamine 60 mg 11/02/16 01:32 11/02/16 01:44 Toradol IM 11/02/16 01:33 60 mg ONETIME ONE Administration Potassium Chloride 20 meq 11/02/16 02:20 11/02/16 02:29 Klor-Con M20 PO 11/02/16 02:21 20 meq ONETIME ONE Administration - Re-Assessments/Exams Free Text/Narrative Re-Assessment/Exam: 11/02/16 06:57 pt was given rocephen and zithrromax. She was able to rest. She was given fluids. She does feel better this am. 11/02/16 06:59 She does work today and I think she should not work for the next 2 days. 11/02/16 07:06 according to her records she does run higher [employer]. Departure - Departure Disposition: Home, Self-Care 01 Clinical Impression: Leukocytosis, unspecified Qualifiers: Leukocytosis type: unspecified Qualified Code(s): D72.829 - Elevated white blood cell count, unspecified - Discharge Information Forms: ED Department Discharge Additional Instructions: You have an appointment with hematology Dr. Aguayo Wednesday at 1 PM [facility], if this appointment is difficult for you to make please contact the clinic for rescheduling, call or return to the emergency department with worsening of symptoms <OfficerJerardo - Last Filed: 11/02/16 10:39> Departure - Departure Time of Disposition: 10:37 Condition: Fair - Assessment/Plan Plan: Assessment Acuity = acute Site and laterality = subjective dyspnea complicated in a patient with known history of attention deficit disorder, heterozygous factor V Leiden with history of pulmonary embolism on anticoagulation with medical compliance issues , diabetes mellitus type 2 and hypothyroidism as well as illicit drug use Etiology = unclear etiology suspicious for recreational drug involvement Manifestations = subjective dyspnea Location of injury = Home Lab values = WBC elevated at 21.5 consistent with a leukocytosis this is a chronic condition that has been going on for 3 years was evaluated by hematology in 2013 at that time WBC was in the 13-14 range she has been in the 19-20 range for the last 6 months this is of unclear etiology, INR 1.09 subtherapeutic d-dimer is negative potassium low at 3.4 consistent hypokalemia CRP elevated 0.36 unclear etiology TSH euthymic at 1.83 urinalysis was negative urine drug screen positive for opiates, try cyclic, amphetamine, methamphetamine and cannabis Plan I did review lab work with her she was able to tolerate a meal after sleeping for several hours, discussed the case with her primary care provider and appointment is set up for hematology consultation for elevated white blood cell count with Dr. Colon 1 PM Wednesday this week [facility] Patient was in agreement with the plan all questions were answered, they were instructed to return to the emergency department or call for worsening symptoms. This note was dictated using [employer] voice recognition software please call with any questions.
[2016-11-02] MEDS ORDERED: Albuterol 0.083% 2.5 MG/3 ML Neb Soln NEB ONE (02:12)
[2016-11-02] MEDS ORDERED: Potassium Chloride 20 MEQ Tab.ER PO ONE (02:20)
[2016-11-02] MEDS ORDERED: cefTRIAXone 1 GM in Sodium Chloride 0.9% 50 ML IV ONE (02:33)
[2016-11-02] MEDS ORDERED: Azithromycin 250 MG Tab ONE (02:46)
[2016-11-02] MEDS: Sodium Chloride 0.9% 1,000 ML IV SCH ×2 (02:56→05:32)
--- NOTE | 2016-11-02 08:59 | CR ---
Chest 2V INDICATION: sob COMPARISON: CT chest 10/30/2016 FINDINGS: Two views. Heart size normal. Minimal vascular congestion. No focal consolidation. No d efinite new pleural effusion. IMPRESSION: Nothing acute. See CT chest report dated 02/08/2017.
[2016-11-02] MEDS ORDERED: Azithromycin 250 MG Tab PO SCH (09:00)
[2016-11-02 09:54] VITALS: BP 119/71
== END 2016-11-02 11:01 | disposition home or self-care (01) ==
LOC: JP.ED 00:36
DX: D72.829 Elevated white blood cell count, unspecified (principal); F32.9 Major depressive disorder, single episode, unspecified; E11.9 Type 2 diabetes mellitus without complications; E66.9 Obesity, unspecified; Z68.41 Body mass index [BMI] 40.0-44.9, adult; Z86.711 Personal history of pulmonary embolism; Z79.01 Long term (current) use of anticoagulants; Z79.84 Long term (current) use of oral hypoglycemic drugs; Z79.899 Other long term (current) drug therapy; Z88.0 Allergy status to penicillin; Z90.49 Acquired absence of other specified parts of digestive tract; Z98.890 Other specified postprocedural states
CPT/HCPCS: 36415; 71020; 80053; 80305; 81001; 83605; 84443; 85025; 85379; 85610; 86140; 96361; 96365; 96372; 99285; A9270; J0696; J1885; J7040; J7050

== ENCOUNTER 2016-11-13 18:44 | Emergency (ER) | payer MEDICAID ==
[2016-11-13 18:51] VITALS: BP 147/93
[2016-11-13] MEDS ORDERED: Ondansetron 4 MG/2 ML SDV IVPUSH ONE (19:04)
[2016-11-13] MEDS ORDERED: Sodium Chloride 0.9% 1,000 ML IV SCH (19:15)
[2016-11-13] MEDS ORDERED: diphenhydrAMINE 50 MG/ML SDV IVPUSH PRN (19:45)
[2016-11-13] MEDS ORDERED: Ketorolac 30 MG/ML SDV IVPUSH ONE (19:46)
[2016-11-13] MEDS ORDERED: Potassium Chloride 20 MEQ Tab.ER PO ONE (20:04)
[2016-11-13] MEDS ORDERED: NS + KCl 20mEq/L 1,000 ML IV SCH (20:15)
--- NOTE | 2016-11-13 22:43 | EDM.PDOC ---
ED HPI GENERAL MEDICAL PROBLEM - General Chief Complaint: General Stated Complaint: MEDICAL VIA [facility] Time Seen by Provider: 11/13/16 18:55 Source of Information: Reports: Patient History Limitations: Reports: No Limitations - History of Present Illness INITIAL COMMENTS - FREE TEXT/NARRATIVE: History of present illness: [31-year-old female who is presenting with a syncopal episode while she is working at [employer]. Weren't certain as to how long she was out but she came in by ambulance. She states she has been feeling cold lately even at work. She is alert and oriented upon arrival but tired. She does have a complex history in that she has chronic leukocytosis and has a appointment with the auto wash buffer early November to investigate this. She also has trouble periodically with hypokalemia. She's had no fevers chills cough cold symptoms no nausea vomiting constipation diarrhea or dysuria. She had a headache while here which resolved with Toradol and Tylenol.] Review of systems: As per history of present illness and below otherwise all systems reviewed and negative. Past medical history: As per history of present illness and as reviewed below otherwise noncontributory. Surgical history: As per history of present illness and as reviewed below otherwise noncontributory. Social history: No reported history of drug or alcohol abuse. Family history: As per history of present illness and as reviewed below otherwise noncontributory. Physical exam: HEENT: Atraumatic, normocephalic, pupils reactive, negative for conjunctival pallor or scleral icterus, mucous membranes moist, throat clear, neck supple, nontender, trachea midline. Lungs: Clear to auscultation, breath sounds equal bilaterally, chest nontender. Heart: S1S2, regular, negative for clicks, rubs, or JVD. Abdomen: Soft, nondistended, nontender. Obese Negative for masses or hepatosplenomegaly. Negative for costovertebral tenderness. Pelvis: Stable nontender. Genitourinary: Deferred. Rectal: Deferred. Extremities: Atraumatic, negative for cords or calf pain. Neurovascular unremarkable. Neuro: Awake, alert, oriented. Cranial nerves II through XII unremarkable. Cerebellum unremarkable. Motor and sensory unremarkable throughout. Exam nonfocal. Diagnostics: [CBC C continues to show the leukocytosis she also has elevated monocytes. Potassium was 3.3 EKG was unremarkable] Therapeutics: [She received IV fluids and IV fluids with potassium and oral potassium while here and her nonspecific abdominal complaints resolved and she felt better. Orthostatic blood pressure and pulses were obtained and were unremarkable.] Impression: [Syncopal episode of uncertain etiology Leukocytosis of uncertain etiology Recurrent hypokalemia of uncertain etiology.] Plan: [She will be following up with a auto wash buffer in early November and hopefully that appointment will result in uncovering what underlying pathology could be contributing to her problems.] Definitive disposition and diagnosis as appropriate pending reevaluation and review of above. Left Upper Abdomen Pain Score (Numeric/FACES): 4 - Related Data Allergies Allergy/AdvReac Type Severity Reaction Status Date / Time Penicillins Allergy Unknown Other Verified 10/30/16 16:02 Home Meds: Home Meds Albuterol Sulfate [Ventolin Hfa] 2 inhalation INH DAILY 07/27/15 [History] Cholecalciferol (Vitamin D3) [Vitamin D] 5,000 unit PO ASDIRECTED 06/09/16 [ History] metFORMIN HCl [Metformin HCl ER] 500 mg PO DAILY 06/09/16 [History] Venlafaxine [Effexor] 200 mg PO DAILY 08/08/16 [History] Warfarin [Coumadin] 5 mg PO ASDIRECTED 08/08/16 [History] Amphetamine/Dextroamphetamine [Adderall] 20 mg PO DAILY 09/26/16 [History] Eszopiclone [Lunesta] 2 mg PO BEDTIME 09/26/16 [History] Dextroamphetamine/Amphetamine [Adderall 10 mg Tablet] 1 tab PO BID 10/30/16 [ History] Liraglutide [Victoza] 0.6 mg SUBCUT DAILY 10/30/16 [History] Albuterol Sulfate 1 inhalation INH Q4H PRN 11/02/16 [History] Past Medical History Respiratory History: Reports: PE Other Respiratory History: pulmonary emboli 10 yrs ago Musculoskeletal History: Reports: Fracture Neurological History: Reports: Concussion Psychiatric History: Reports: ADHD, Depression Other Psychiatric History: Pt is currently seeing a mental health counselor and on effexor Endocrine/Metabolic History: Reports: Diabetes, Type II, Obesity/BMI 30+ Hematologic History: Reports: Blood Transfusion(s), Other (See Below) Other Hematologic History: factor V leiden - Past Surgical History HEENT Surgical History: Reports: Tonsillectomy Respiratory Surgical History: Reports: Other (See Below) Other Respiratory Surgeries/Procedures: chest tube GI Surgical History: Reports: Cholecystectomy Social & Family History - Tobacco Use Smoking Status *Q: Never Smoker Years of Tobacco use: 15 Packs/Tins Daily: 1 Used Tobacco, but Quit: No Second Hand Smoke Exposure: Yes - Caffeine Use Caffeine Use: Reports: Coffee, Soda, Tea - Alcohol Use Days Per Week of Alcohol Use: 0 - Recreational Drug Use Recreational Drug Use: No Drug Use in Last 12 Months: Yes Recreational Drug Type: Reports: Marijuana/Hashish Other Recreational Drug Type: 3 weeks ago Recreational Drug Use Frequency: Socially Recreational Drug Last Use: 3 weeks ago. ED ROS GENERAL - Review of Systems Review Of Systems: ROS reveals no pertinent complaints other than HPI. ED EXAM, GENERAL - Physical Exam Exam: See Below Course - Vital Signs Last Recorded V/S: Last Vital Signs Temp 37.1 C 11/13/16 18:50 Pulse 74 11/13/16 18:50 Resp 18 11/13/16 18:50 BP 147/93 H 11/13/16 18:50 Pulse Ox 94 L 11/13/16 18:50 Orthostatic Blood Pressure [ 132/86 Standing] Orthostatic Blood Pressure [ 138/83 Sitting] Orthostatic Blood Pressure [ 108/46 Supine] - Orders/Labs/Meds Orders: Active Orders 24 hr Category Date Time Status EKG Documentation Completion [RC] ASDIRECTED Care 11/13/16 20:01 Active Orthostatic Vital Signs [RC] ASDIRECTED Care 11/13/16 20:57 Active NS + KCl 20mEq/L [Normal Saline with 20 mEq KCl] 1,000 Med 11/13/16 20:15 Active ml IV ASDIRECTED diphenhydrAMINE [Benadryl] Med 11/13/16 19:45 Active 25 mg IVPUSH BEDTIME PRN EKG 12 Lead [EK] Stat Ther 11/13/16 20:01 Ordered Medication Orders Diphenhydramine HCl (Benadryl) 25 mg IVPUSH BEDTIME PRN PRN Reason: Headache Last Admin: 11/13/16 20:04 Dose: 25 mg Potassium Chloride/Sodium Chloride (Normal Saline With 20 Meq Kcl) 1,000 mls @ 500 mls/hr IV ASDIRECTED MACKENZIE Last Admin: 11/13/16 20:15 Dose: 500 mls/hr Labs: Laboratory Tests 11/13/16 11/13/16 11/13/16 Range/Units 19:12 19:12 19:12 WBC 18.3 H (4.5-11.0) K/uL RBC 5.42 (3.30-5.50) M/uL Hgb 15.1 H (12.0-15.0) g/dL Hct 45.3 (36.0-48.0) % MCV 84 (80-98) fL MCH 28 (27-31) pg MCHC 33 (32-36) % Plt Count 168 (150-400) K/uL Add Manual Diff Yes Neutrophils % (Manual) 61 (36-66) % Lymphocytes % (Manual) 21 L (24-44) % Monocytes % (Manual) 14 H (2-6) % Eosinophils % (Manual) 1 L (2-4) % Basophils % (Manual) 1 (0-1) % Polychromasia PT (9.5-12.0) sec INR (0.80-1.20) D-Dimer, Quantitative (0.0-400.0) ng/mL Sodium 144 (140-148) mmol/L Potassium 3.3 L (3.6-5.2) mmol/L Chloride 108 (100-108) mmol/L Carbon Dioxide 27 (21-32) mmol/L Anion Gap 12.3 (5.0-14.0) mmol/L BUN 4 L (7-18) mg/dL Creatinine 0.7 (0.6-1.0) mg/dL Est Cr Clr Drug Dosing 113.97 mL/min Estimated GFR (MDRD) > 60 (>60) Glucose 86 (74-106) mg/dL Lactic Acid 1.6 (0.4-2.0) mmol/L Calcium 8.9 (8.5-10.1) mg/dL Total Bilirubin 0.3 D (0.2-1.0) mg/dL AST 14 L (15-37) U/L ALT 24 (12-78) U/L Alkaline Phosphatase 72 (46-116) U/L C-Reactive Protein (0.0-0.3) mg/dL Total Protein 7.9 (6.4-8.2) g/dL Albumin 3.6 (3.4-5.0) g/dL Globulin 4.3 H (2.3-3.5) g/dL Albumin/Globulin Ratio 0.8 L (1.2-2.2) TSH, Ultra Sensitive (0.358-3.740) uIU/mL Urine Color Urine Appearance Urine pH (4.5-8.0) Ur Specific Butler (1.008-1.030) Urine Protein (NEGATIVE) mg/dL Urine Glucose (UA) (NEGATIVE) mg/dL Urine Ketones (NEGATIVE) mg/dL Urine Occult Blood (NEGATIVE) Urine Nitrite (NEGATIVE) Urine Bilirubin (NEGATIVE) Urine Urobilinogen (NORMAL) mg/dL Ur Leukocyte Esterase (NEGATIVE) Urine RBC (0-5) Urine WBC (0-5) Ur Epithelial Cells Amorphous Sediment Urine Bacteria Urine Mucus Urine Opiates Screen (NEGATIVE) Ur Oxycodone Screen (NEGATIVE) Urine Methadone Screen (NEGATIVE) Ur Propoxyphene Screen (NEGATIVE) Ur Barbiturates Screen (NEGATIVE) Ur Tricyclics Screen (NEGATIVE) Ur Phencyclidine Scrn (NEGATIVE) Ur Amphetamine Screen (NEGATIVE) U Methamphetamines Scrn (NEGATIVE) Urine MDMA Screen (NEGATIVE) U Benzodiazepines Scrn (NEGATIVE) U Cocaine Metab Screen (NEGATIVE) U Marijuana (THC) Screen (NEGATIVE) 11/13/16 11/13/16 11/13/16 Range/Units 19:12 19:28 19:28 WBC (4.5-11.0) K/uL RBC (3.30-5.50) M/uL Hgb (12.0-15.0) g/dL Hct (36.0-48.0) % MCV (80-98) fL MCH (27-31) pg MCHC (32-36) % Plt Count (150-400) K/uL Add Manual Diff Neutrophils % (Manual) (36-66) % Lymphocytes % (Manual) (24-44) % Monocytes % (Manual) (2-6) % Eosinophils % (Manual) (2-4) % Basophils % (Manual) (0-1) % Polychromasia PT (9.5-12.0) sec INR (0.80-1.20) D-Dimer, Quantitative (0.0-400.0) ng/mL Sodium (140-148) mmol/L Potassium (3.6-5.2) mmol/L Chloride (100-108) mmol/L Carbon Dioxide (21-32) mmol/L Anion Gap (5.0-14.0) mmol/L BUN (7-18) mg/dL Creatinine (0.6-1.0) mg/dL Est Cr Clr Drug Dosing mL/min Estimated GFR (MDRD) (>60) Glucose (74-106) mg/dL Lactic Acid (0.4-2.0) mmol/L Calcium (8.5-10.1) mg/dL Total Bilirubin (0.2-1.0) mg/dL AST (15-37) U/L ALT (12-78) U/L Alkaline Phosphatase (46-116) U/L C-Reactive Protein 0.64 H (0.0-0.3) mg/dL Total Protein (6.4-8.2) g/dL Albumin (3.4-5.0) g/dL Globulin (2.3-3.5) g/dL Albumin/Globulin Ratio (1.2-2.2) TSH, Ultra Sensitive 0.872 (0.358-3.740) uIU/mL Urine Color Yellow Urine Appearance Clear Urine pH 7.0 (4.5-8.0) Ur Specific Butler 1.005 L (1.008-1.030) Urine Protein Negative (NEGATIVE) mg/dL Urine Glucose (UA) Normal (NEGATIVE) mg/dL Urine Ketones Negative (NEGATIVE) mg/dL Urine Occult Blood Negative (NEGATIVE) Urine Nitrite Negative (NEGATIVE) Urine Bilirubin Negative (NEGATIVE) Urine Urobilinogen Normal (NORMAL) mg/dL Ur Leukocyte Esterase Negative (NEGATIVE) Urine RBC 0-5 (0-5) Urine WBC 0-5 (0-5) Ur Epithelial Cells Rare Amorphous Sediment Not seen Urine Bacteria Rare Urine Mucus Not seen Urine Opiates Screen Negative (NEGATIVE) Ur Oxycodone Screen Negative (NEGATIVE) Urine Methadone Screen Negative (NEGATIVE) Ur Propoxyphene Screen Negative (NEGATIVE) Ur Barbiturates Screen Negative (NEGATIVE) Ur Tricyclics Screen Negative (NEGATIVE) Ur Phencyclidine Scrn Negative (NEGATIVE) Ur Amphetamine Screen Negative (NEGATIVE) U Methamphetamines Scrn Negative (NEGATIVE) Urine MDMA Screen Negative (NEGATIVE) U Benzodiazepines Scrn Negative (NEGATIVE) U Cocaine Metab Screen Negative (NEGATIVE) U Marijuana (THC) Screen Negative (NEGATIVE) 11/13/16 11/13/16 Range/Units 19:41 19:42 WBC (4.5-11.0) K/uL RBC (3.30-5.50) M/uL Hgb (12.0-15.0) g/dL Hct (36.0-48.0) % MCV (80-98) fL MCH (27-31) pg MCHC (32-36) % Plt Count (150-400) K/uL Add Manual Diff Neutrophils % (Manual) (36-66) % Lymphocytes % (Manual) (24-44) % Monocytes % (Manual) (2-6) % Eosinophils % (Manual) (2-4) % Basophils % (Manual) (0-1) % Polychromasia PT 11.9 (9.5-12.0) sec INR 1.11 (0.80-1.20) D-Dimer, Quantitative 222 (0.0-400.0) ng/mL Sodium (140-148) mmol/L Potassium (3.6-5.2) mmol/L Chloride (100-108) mmol/L Carbon Dioxide (21-32) mmol/L Anion Gap (5.0-14.0) mmol/L BUN (7-18) mg/dL Creatinine (0.6-1.0) mg/dL Est Cr Clr Drug Dosing mL/min Estimated GFR (MDRD) (>60) Glucose (74-106) mg/dL Lactic Acid (0.4-2.0) mmol/L Calcium (8.5-10.1) mg/dL Total Bilirubin (0.2-1.0) mg/dL AST (15-37) U/L ALT (12-78) U/L Alkaline Phosphatase (46-116) U/L C-Reactive Protein (0.0-0.3) mg/dL Total Protein (6.4-8.2) g/dL Albumin (3.4-5.0) g/dL Globulin (2.3-3.5) g/dL Albumin/Globulin Ratio (1.2-2.2) TSH, Ultra Sensitive (0.358-3.740) uIU/mL Urine Color Urine Appearance Urine pH (4.5-8.0) Ur Specific Butler (1.008-1.030) Urine Protein (NEGATIVE) mg/dL Urine Glucose (UA) (NEGATIVE) mg/dL Urine Ketones (NEGATIVE) mg/dL Urine Occult Blood (NEGATIVE) Urine Nitrite (NEGATIVE) Urine Bilirubin (NEGATIVE) Urine Urobilinogen (NORMAL) mg/dL Ur Leukocyte Esterase (NEGATIVE) Urine RBC (0-5) Urine WBC (0-5) Ur Epithelial Cells Amorphous Sediment Urine Bacteria Urine Mucus Urine Opiates Screen (NEGATIVE) Ur Oxycodone Screen (NEGATIVE) Urine Methadone Screen (NEGATIVE) Ur Propoxyphene Screen (NEGATIVE) Ur Barbiturates Screen (NEGATIVE) Ur Tricyclics Screen (NEGATIVE) Ur Phencyclidine Scrn (NEGATIVE) Ur Amphetamine Screen (NEGATIVE) U Methamphetamines Scrn (NEGATIVE) Urine MDMA Screen (NEGATIVE) U Benzodiazepines Scrn (NEGATIVE) U Cocaine Metab Screen (NEGATIVE) U Marijuana (THC) Screen (NEGATIVE) Meds: Medications Generic Name Dose Route Start Last Admin Trade Name Freq PRN Reason Stop Dose Admin Diphenhydramine HCl 25 mg 11/13/16 19:45 11/13/16 20:04 Benadryl IVPUSH 25 mg BEDTIME PRN Administration Headache Potassium Chloride/Sodium Chloride 1,000 mls @ 500 mls/hr 11/13/16 20:15 20:15 Normal Saline With 20 Meq Kcl IV 500 mls/hr ASDIRECTED MACKENZIE Administration Discontinued Medications Generic Name Dose Route Start Last Admin Trade Name Freq PRN Reason Stop Dose Admin Sodium Chloride 1,000 mls @ 500 mls/hr 11/13/16 19:15 11/13/16 19:15 Normal Saline IV 500 mls/hr ASDIRECTED MACKENZIE Administration Ketorolac Tromethamine 30 mg 11/13/16 19:46 11/13/16 20:04 Toradol IVPUSH 11/13/16 19:47 30 mg ONETIME ONE Administration Ondansetron HCl 4 mg 11/13/16 19:04 11/13/16 19:14 Zofran IVPUSH 11/13/16 19:05 4 mg ONETIME ONE Administration Potassium Chloride 40 meq 11/13/16 20:04 11/13/16 20:14 Klor-Con M20 PO 11/13/16 20:05 40 meq ONETIME ONE Administration Departure - Departure Time of Disposition: 22:41 Disposition: Home, Self-Care 01 Condition: Good Clinical Impression: Hypokalemia, Nonspecific abdominal pain Syncope Qualifiers: Syncope type: unspecified Qualified Code(s): R55 - Syncope and collapse Leukocytosis Qualifiers: Leukocytosis type: monocytosis Qualified Code(s): D72.821 - Monocytosis ( symptomatic) - Discharge Information Referrals: PCP,None [Primary Care Provider] - Additional Instructions: I'm very glad that she was seeing a auto wash buffer and I'm hoping that he or she will be able to help you with your underlying problems not only of your elevated white count but the other problems that you're having such as low potassium and the problem of passing out that she had today. - My Orders Last 24 Hours: My Active Orders 11/13/16 19:45 diphenhydrAMINE [Benadryl] 25 mg IVPUSH BEDTIME PRN 11/13/16 20:01 EKG Documentation Completion [RC] ASDIRECTED EKG 12 Lead [EK] Stat 11/13/16 20:15 NS + KCl 20mEq/L [Normal Saline with 20 mEq KCl] 1,000 ml IV ASDIRECTED 11/13/16 20:57 Orthostatic Vital Signs [RC] ASDIRECTED - Assessment/Plan Last 24 Hours: My Active Orders 11/13/16 19:45 diphenhydrAMINE [Benadryl] 25 mg IVPUSH BEDTIME PRN 11/13/16 20:01 EKG Documentation Completion [RC] ASDIRECTED EKG 12 Lead [EK] Stat 11/13/16 20:15 NS + KCl 20mEq/L [Normal Saline with 20 mEq KCl] 1,000 ml IV ASDIRECTED 11/13/16 20:57 Orthostatic Vital Signs [RC] ASDIRECTED
== END 2016-11-13 23:18 | disposition home or self-care (01) ==
LOC: JP.ED 18:44
DX: R55 Syncope and collapse (principal); E87.6 Hypokalemia; R10.12 Left upper quadrant pain; D72.821 Monocytosis (symptomatic); F32.9 Major depressive disorder, single episode, unspecified; E11.9 Type 2 diabetes mellitus without complications; E66.9 Obesity, unspecified; Z68.41 Body mass index [BMI] 40.0-44.9, adult; Z90.49 Acquired absence of other specified parts of digestive tract; Z98.890 Other specified postprocedural states; Z79.01 Long term (current) use of anticoagulants; Z79.84 Long term (current) use of oral hypoglycemic drugs; Z79.899 Other long term (current) drug therapy; Z88.0 Allergy status to penicillin; Z86.711 Personal history of pulmonary embolism
CPT/HCPCS: 36415; 80053; 80305; 81001; 83605; 84443; 85025; 85379; 85610; 86140; 93005; 96361; 96374; 96375; 99284; A9270; J1200; J1885; J2405; J3480; J7040

== ENCOUNTER 2016-12-27 00:45 | Emergency (ER) | payer MEDICAID ==
[2016-12-27 01:02] VITALS: BP 146/79
--- NOTE | 2016-12-27 02:31 | EDM.PDOC ---
ED HPI GENERAL MEDICAL PROBLEM - General Chief Complaint: Abdominal Pain Stated Complaint: LOWER LEFT SIDE ABDOMINAL PAIN Time Seen by Provider: 12/27/16 01:17 Source of Information: Reports: Patient History Limitations: Reports: No Limitations - History of Present Illness INITIAL COMMENTS - FREE TEXT/NARRATIVE: This patient comes in complaining of left lower quadrant abdominal pain that has been going on all day. She said her bowel movements are usually loose and today maybe just slightly more firm. She said she gets pain with straining in fact it hurts so bad that she can hardly push at all to have a bowel movement. She had some cold sweats earlier took some Tylenol. She vomits on and off normally but she's vomited twice today she said it usually depends on her anxiety level. She denies any pelvic pain. And node no vaginal discharge. She denies any chance of whatsoever. Last time she had intercourse was in July of this year and her has been apparently in the hospital until just a couple of days ago and they did have intercourse 1 time. Since he got out. Her periods are generally monthly and she hasn't been missing periods. LLQ abd pain Pain Score (Numeric/FACES): 8 - Related Data Allergies Allergy/AdvReac Type Severity Reaction Status Date / Time Penicillins Allergy Unknown Other Verified 12/27/16 01:04 Home Meds: Home Meds Albuterol Sulfate [Ventolin Hfa] 2 puff INH Q54H PRN 07/27/15 [History] Cholecalciferol (Vitamin D3) [Vitamin D] 50,000 unit PO WEEKLY 06/09/16 [History ] metFORMIN HCl [Metformin HCl ER] 500 mg PO DAILY 06/09/16 [History] Venlafaxine [Effexor] 100 mg PO DAILY 08/08/16 [History] Amphetamine/Dextroamphetamine [Adderall] 20 mg PO DAILY 09/26/16 [History] Eszopiclone [Lunesta] 2 mg PO BEDTIME 09/26/16 [History] Dextroamphetamine/Amphetamine [Adderall 10 mg Tablet] 1 tab PO BID 10/30/16 [ History] Liraglutide [Victoza] 0.6 mg SUBCUT DAILY 10/30/16 [History] Albuterol Sulfate 1 inhalation INH Q4H PRN 11/02/16 [History] Fluticasone/Salmeterol [Advair 250-50 Diskus] 1 puff INH BID 12/27/16 [History] Past Medical History Respiratory History: Reports: PE Other Respiratory History: pulmonary emboli 10 yrs ago Musculoskeletal History: Reports: Fracture Neurological History: Reports: Concussion Psychiatric History: Reports: ADHD, Depression Other Psychiatric History: Pt is currently seeing a mental health counselor and on effexor Endocrine/Metabolic History: Reports: Diabetes, Type II, Obesity/BMI 30+ Hematologic History: Reports: Blood Transfusion(s), Other (See Below) Other Hematologic History: factor V leiden - Past Surgical History HEENT Surgical History: Reports: Tonsillectomy Respiratory Surgical History: Reports: Other (See Below) Other Respiratory Surgeries/Procedures: chest tube GI Surgical History: Reports: Cholecystectomy Social & Family History - Tobacco Use Smoking Status *Q: Current Every Day Smoker Years of Tobacco use: 15 Packs/Tins Daily: 0.2 Used Tobacco, but Quit: No Second Hand Smoke Exposure: Yes - Caffeine Use Caffeine Use: Reports: Coffee - Alcohol Use Days Per Week of Alcohol Use: 0 - Recreational Drug Use Recreational Drug Use: No Drug Use in Last 12 Months: Yes Recreational Drug Type: Reports: Marijuana/Hashish Other Recreational Drug Type: 3 weeks ago Recreational Drug Use Frequency: Socially Recreational Drug Last Use: 3 weeks ago. ED ROS GENERAL - Review of Systems Review Of Systems: ROS reveals no pertinent complaints other than HPI. ED EXAM, GI/ABD - Physical Exam Exam: See Below Exam Limited By: No Limitations General Appearance: Alert, Mild Distress, Obese Eyes: Bilateral: Normal Appearance Throat/Mouth: Normal Oropharynx Respiratory/Chest: Lungs Clear Cardiovascular: Regular Rate, Rhythm GI/Abdominal Exam: Soft, Other Rectal (Female) Exam: Normal Exam (Rectal vault was empty with no evidence of any blood) Back Exam: Normal Inspection Extremities: Normal Inspection Skin Exam: Warm, Dry Course - Vital Signs Last Recorded V/S: Last Vital Signs Temp 36.3 C 12/27/16 01:00 Pulse 117 H 12/27/16 01:00 Resp 20 12/27/16 01:00 BP 146/79 H 12/27/16 01:00 Pulse Ox 97 12/27/16 01:00 - Orders/Labs/Meds Labs: Laboratory Tests 12/27/16 Range/Units 01:41 WBC 24.7 H (4.5-11.0) K/uL RBC 5.44 (3.30-5.50) M/uL Hgb 15.0 (12.0-15.0) g/dL Hct 44.7 (36.0-48.0) % MCV 82 (80-98) fL MCH 28 (27-31) pg MCHC 34 (32-36) % Plt Count 189 (150-400) K/uL Neut % (Auto) 86 H (36-66) % Lymph % (Auto) 8 L (24-44) % Maury % (Auto) 5 (2-6) % Eos % (Auto) 0 L (2-4) % Baso % (Auto) 0 (0-1) % - Re-Assessments/Exams Free Text/Narrative Re-Assessment/Exam: 12/27/16 11:48 White blood cell count was elevated in this lady with a little bit of left shift. The nature of her pain increased pain with any kind of straining an elevated white blood cell count leads me to believe that she probably has diverticulitis. This would be very early case I don't see any need for doing any type of imaging in this lady so will treat empirically Departure - Departure Time of Disposition: 02:29 Disposition: Home, Self-Care 01 Condition: Fair Clinical Impression: Diverticulitis - Discharge Information Instructions: Diverticulitis, [id number] Referrals: PCP,None [Primary Care Provider] - Forms: ED Department Discharge Additional Instructions: This appears to be a very early case of diverticulitis which is an infection of some little tiny outpouchings around the large intestine. Take the antibiotics metronidazole 500 mg twice daily and Cipro 500 mg twice daily for one week. Use the pain medication [place] 5/325, #15 tablets, one or 2 tablets every 4-6 hours as needed for pain. This medication can cause sedation and impair driving. See your Dr. if you're not getting better in a few days or return to the ER at any time if worse
== END 2016-12-27 02:36 | disposition home or self-care (01) ==
LOC: JP.ED 00:45
DX: K57.92 Diverticulitis of intestine, part unspecified, without perforation or abscess without bleeding (principal); F32.9 Major depressive disorder, single episode, unspecified; E11.9 Type 2 diabetes mellitus without complications; E66.9 Obesity, unspecified; F17.210 Nicotine dependence, cigarettes, uncomplicated; Z90.49 Acquired absence of other specified parts of digestive tract; Z98.890 Other specified postprocedural states; Z86.711 Personal history of pulmonary embolism; Z79.84 Long term (current) use of oral hypoglycemic drugs; Z79.899 Other long term (current) drug therapy; Z88.0 Allergy status to penicillin; Z68.41 Body mass index [BMI] 40.0-44.9, adult
CPT/HCPCS: 36415; 85025; 99284

== ENCOUNTER 2016-12-31 16:42 | Emergency (ER) | payer MEDICAID ==
[2016-12-31] MEDS ORDERED: Sodium Chloride 0.9% 10 ML Syringe FLUSH PRN (18:14)
[2016-12-31] MEDS ORDERED: Acetaminophen/HYDROcodone 325-10 MG Tab PO ONE (18:15)
[2016-12-31] MEDS ORDERED: Sodium Chloride 0.9% 100 ML IV SCH (18:30)
[2016-12-31] MEDS ORDERED: Iopamidol 612 MG/ML 100 ML Bottle IV SCH (18:30)
[2016-12-31 20:41] VITALS: BP 176/93
--- NOTE | 2016-12-31 20:51 | EDM.PDOC ---
ED HPI GENERAL MEDICAL PROBLEM - General Chief Complaint: Abdominal Pain Stated Complaint: PAIN DIVERTICULITIS Time Seen by Provider: 12/31/16 18:15 Source of Information: Reports: Patient History Limitations: Reports: No Limitations - History of Present Illness INITIAL COMMENTS - FREE TEXT/NARRATIVE: This patient comes in complaining of left lower quadrant abdominal pain. I saw her in the emergency department on December 27 with the same problem. At the time she was complaining of severe pain and chills as well as some pain especially with any straining at stool. Her white count was about 24,000 at the time. She didn't tell me at the time that she's had some problems with chronic leukocytosis. Her exam basically showed her abdomen was nontender. I diagnosed an early diverticulitis put her on Flagyl and Cipro. She said she has not gotten any better. Apparently she was seen in clinic today and told she needed some imaging and so told to come to the ER. She says that she still does not have any fever. Her by mouth intake is all right. She still has decreased bowel movements only about 1 every 24 hours. Her pain is continuous but not worse. Left Lower Abdomen Pain Score (Numeric/FACES): 8 - Related Data Allergies Allergy/AdvReac Type Severity Reaction Status Date / Time Penicillins Allergy Unknown Other Verified 12/31/16 17:18 Home Meds: Home Meds Albuterol Sulfate [Ventolin Hfa] 2 puff INH Q54H PRN 07/27/15 [History] Cholecalciferol (Vitamin D3) [Vitamin D] 50,000 unit PO WEEKLY 06/09/16 [History ] metFORMIN HCl [Metformin HCl ER] 500 mg PO DAILY 06/09/16 [History] Venlafaxine [Effexor] 100 mg PO DAILY 08/08/16 [History] Amphetamine/Dextroamphetamine [Adderall] 20 mg PO DAILY 09/26/16 [History] Eszopiclone [Lunesta] 2 mg PO BEDTIME 09/26/16 [History] Dextroamphetamine/Amphetamine [Adderall 10 mg Tablet] 1 tab PO BID 10/30/16 [ History] Liraglutide [Victoza] 0.6 mg SUBCUT BEDTIME 10/30/16 [History] Albuterol Sulfate 1 inhalation INH Q4H PRN 11/02/16 [History] Fluticasone/Salmeterol [Advair 250-50 Diskus] 1 puff INH BID 12/27/16 [History] Ciprofloxacin HCl [Cipro] 500 mg PO BID 12/31/16 [History] Clindamycin HCl [Cleocin] 300 mg PO Q6H 12/31/16 [History] Cyclobenzaprine [Flexeril] 10 mg PO BEDTIME 12/31/16 [History] Fluticasone/Salmeterol [Advair 250-50 Diskus] 2 puff IH BID 12/31/16 [History] Potassium Chloride 10 meq PO DAILY 12/31/16 [History] Ranitidine HCl [Ranitidine] 300 mg PO BEDTIME 12/31/16 [History] metroNIDAZOLE [Flagyl] 500 mg PO BID 12/31/16 [History] Past Medical History Respiratory History: Reports: PE Other Respiratory History: pulmonary emboli 10 yrs ago Gastrointestinal History: Reports: Diverticulosis Musculoskeletal History: Reports: Fracture Neurological History: Reports: Concussion Psychiatric History: Reports: ADHD, Depression Other Psychiatric History: Pt is currently seeing a mental health counselor and on effexor Endocrine/Metabolic History: Reports: Diabetes, Type II, Obesity/BMI 30+ Hematologic History: Reports: Blood Transfusion(s), Other (See Below) Other Hematologic History: factor V leiden - Past Surgical History HEENT Surgical History: Reports: Tonsillectomy Respiratory Surgical History: Reports: Other (See Below) Other Respiratory Surgeries/Procedures: chest tube GI Surgical History: Reports: Cholecystectomy Social & Family History - Tobacco Use Smoking Status *Q: Current Every Day Smoker Years of Tobacco use: 15 Packs/Tins Daily: 0.2 Used Tobacco, but Quit: No Tobacco Use Comment: current some day smoker Second Hand Smoke Exposure: Yes - Caffeine Use Caffeine Use: Reports: Coffee, Energy Drinks, Soda - Alcohol Use Days Per Week of Alcohol Use: 0 - Recreational Drug Use Recreational Drug Use: Yes Drug Use in Last 12 Months: Yes Recreational Drug Type: Reports: Marijuana/Hashish Other Recreational Drug Type: 3 weeks ago Recreational Drug Use Frequency: Socially Recreational Drug Last Use: 3 weeks ago. ED ROS GENERAL - Review of Systems Review Of Systems: See Below Constitutional: Reports: Chills HEENT: Reports: No Symptoms Respiratory: Reports: No Symptoms Cardiovascular: Reports: No Symptoms Endocrine: Reports: No Symptoms GI/Abdominal: Reports: Abdominal Pain : Reports: No Symptoms Musculoskeletal: Reports: No Symptoms Skin: Reports: No Symptoms Neurological: Reports: No Symptoms Psychiatric: Reports: No Symptoms Hematologic/Lymphatic: Reports: No Symptoms ED EXAM, GI/ABD - Physical Exam Exam: See Below Exam Limited By: No Limitations General Appearance: Alert, Mild Distress (Okay very nice dollars to sit around) , Obese Eyes: Bilateral: Normal Appearance Throat/Mouth: Normal Inspection Respiratory/Chest: Lungs Clear Cardiovascular: Regular Rate, Rhythm GI/Abdominal Exam: Normal Bowel Sounds, Soft, Non-Tender (No definite tenderness in the left lower quadrant) Back Exam: Normal Inspection Extremities: Normal Inspection Neurological: Alert, Oriented Psychiatric: Other (Frequently tearful when telling me about her) Skin Exam: Warm, Dry Course - Vital Signs Last Recorded V/S: Last Vital Signs Temp 37.0 C 12/31/16 20:40 Pulse 112 H 12/31/16 20:40 Resp 17 12/31/16 20:40 BP 176/93 H 12/31/16 20:40 Pulse Ox 97 12/31/16 20:40 - Orders/Labs/Meds Orders: Active Orders 24 hr Category Date Time Status Abdomen Pelvis w Cont [CT] Stat Exams 12/31/16 18:14 Taken UA W/MICROSCOPIC [URIN] Urgent Lab 12/31/16 18:14 Uncollected Iopamidol [Isovue-300 (61%)] Med 12/31/16 18:30 Active 100 ml IV . DIRECTED Sodium Chloride 0.9% [Normal Saline] 100 ml Med 12/31/16 18:30 Active IV ASDIRECTED Sodium Chloride 0.9% [Saline Flush] Med 12/31/16 18:14 Active 10 ml FLUSH ASDIRECTED PRN Saline Lock Insert [OM.PC] Urgent Oth 12/31/16 18:14 Ordered Medication Orders Sodium Chloride (Normal Saline) 100 mls @ 3 mls/sec IV ASDIRECTED MACKENZIE Last Admin: 12/31/16 18:46 Dose: 3 mls/sec Iopamidol (Isovue-300 (61%)) 100 ml IV . DIRECTED MACKENZIE Last Admin: 12/31/16 18:46 Dose: 100 ml Sodium Chloride (Saline Flush) 10 ml FLUSH ASDIRECTED PRN PRN Reason: Keep Vein Open Labs: Laboratory Tests 12/31/16 12/31/16 Range/Units 18:26 18:26 WBC 22.1 H (4.5-11.0) K/uL RBC 5.74 H (3.30-5.50) M/uL Hgb 15.7 H (12.0-15.0) g/dL Hct 47.2 (36.0-48.0) % MCV 82 (80-98) fL MCH 27 (27-31) pg MCHC 33 (32-36) % Plt Count 189 (150-400) K/uL Neut % (Auto) 75 H (36-66) % Lymph % (Auto) 15 L (24-44) % [place] % (Auto) 8 H (2-6) % Eos % (Auto) 2 (2-4) % Baso % (Auto) 0 (0-1) % Sodium 141 (140-148) mmol/L Potassium 3.2 L (3.6-5.2) mmol/L Chloride 100 (100-108) mmol/L Carbon Dioxide 28 (21-32) mmol/L Anion Gap 16.2 H (5.0-14.0) mmol/L BUN 9 D (7-18) mg/dL Creatinine 0.7 (0.6-1.0) mg/dL Est Cr Clr Drug Dosing 118.54 mL/min Estimated GFR (MDRD) > 60 (>60) Glucose 130 H (74-106) mg/dL Calcium 9.1 (8.5-10.1) mg/dL Total Bilirubin 0.2 (0.2-1.0) mg/dL AST 23 (15-37) U/L ALT 37 (12-78) U/L Alkaline Phosphatase 73 (46-116) U/L Total Protein 8.3 H (6.4-8.2) g/dL Albumin 3.9 (3.4-5.0) g/dL Globulin 4.4 H (2.3-3.5) g/dL Albumin/Globulin Ratio 0.9 L (1.2-2.2) Meds: Medications Generic Name Dose Route Start Last Admin Trade Name Freq PRN Reason Stop Dose Admin Sodium Chloride 100 mls @ 3 mls/sec 12/31/16 18:30 12/31/16 18:46 Normal Saline IV 3 mls/sec ASDIRECTED AMCKENZIE Administration Iopamidol 100 ml 12/31/16 18:30 12/31/16 18:46 Isovue-300 (61%) IV 100 ml . DIRECTED MACKENZIE Administration Sodium Chloride 10 ml 12/31/16 18:14 Saline Flush FLUSH ASDIRECTED PRN Keep Vein Open Discontinued Medications Generic Name Dose Route Start Last Admin Trade Name Russel PRN Reason Stop Dose Admin Hydrocodone Bitart/Acetaminophen 1 tab 12/31/16 18:15 12/31/16 18:30 [place] 325-10 Mg PO 12/31/16 18:16 1 tab ONETIME ONE Administration - Radiology Interpretation Free Text/Narrative:: CT of the abdomen and pelvis shows no acute pathology. I note that the colon is nearly empty. - Re-Assessments/Exams Free Text/Narrative Re-Assessment/Exam: 12/31/16 20:[address] findings were discussed with the patient. She mentioned that she has in fact seen a catering chef and was told that she doesn't have any kind of leukemia that the elevated white blood cell count is probably just from some kind of ongoing inflammatory process like sinusitis and so forth. I note she had an elevated white count and that in the vomitus but patient says after that it went down about 13 don't have those records. I don't know the etiology of her continued pain. I'm not going to medicate her with anything outpatient. I like her to be seen in clinic tomorrow Departure - Departure Time of Disposition: 20:53 Disposition: Home, Self-Care 01 Condition: Fair Clinical Impression: Abdominal pain - Discharge Information Referrals: Bibiana Russ FITNESS SPECIALIST [Primary Care Provider] - Forms: ED Department Discharge Additional Instructions: Continue all your usual medications. Please follow-up in clinic tomorrow. An appointment request has been sent. - My Orders Last 24 Hours: My Active Orders 12/31/16 18:14 Abdomen Pelvis w Cont [CT] Stat UA W/MICROSCOPIC [URIN] Urgent Sodium Chloride 0.9% [Saline Flush] 10 ml FLUSH ASDIRECTED PRN Saline Lock Insert [OM.PC] Urgent 12/31/16 18:30 Iopamidol [Isovue-300 (61%)] 100 ml IV . DIRECTED Sodium Chloride 0.9% [Normal Saline] 100 ml IV ASDIRECTED - Assessment/Plan Last 24 Hours: My Active Orders 12/31/16 18:14 Abdomen Pelvis w Cont [CT] Stat UA W/MICROSCOPIC [URIN] Urgent Sodium Chloride 0.9% [Saline Flush] 10 ml FLUSH ASDIRECTED PRN Saline Lock Insert [OM.PC] Urgent 12/31/16 18:30 Iopamidol [Isovue-300 (61%)] 100 ml IV . DIRECTED Sodium Chloride 0.9% [Normal Saline] 100 ml IV ASDIRECTED
== END 2016-12-31 21:10 | disposition home or self-care (01) ==
LOC: JP.ED 16:42
DX: R10.32 Left lower quadrant pain (principal); E11.9 Type 2 diabetes mellitus without complications; E66.9 Obesity, unspecified; F17.210 Nicotine dependence, cigarettes, uncomplicated; Z88.0 Allergy status to penicillin; Z79.84 Long term (current) use of oral hypoglycemic drugs; Z79.899 Other long term (current) drug therapy; Z68.41 Body mass index [BMI] 40.0-44.9, adult
CPT/HCPCS: 36415; 74177; 80053; 85025; 99284; A9270; J7030; Q9967

== ENCOUNTER 2017-05-13 15:13 | Emergency (ER) | payer MEDICAID ==
[2017-05-13 15:55] VITALS: BP 152/109
[2017-05-13] MEDS ORDERED: LORazepam 1 MG Tab PO ONE (16:12)
--- NOTE | 2017-05-13 16:22 | EDM.PDOCBH ---
ED HPI GENERAL MEDICAL PROBLEM - General Chief Complaint: Behavioral/Psych Stated Complaint: EVAL Time Seen by Provider: 05/13/17 16:05 Source of Information: Reports: Patient, RN History Limitations: Reports: No Limitations - History of Present Illness INITIAL COMMENTS - FREE TEXT/NARRATIVE: 31 yo female was getting counseling earlier for her depression. After today's session she was referred to the ER to be medically cleared before transfer to an inpatient psych facility. Has been on Effexor for about the past year for depression. Is not actively suicidal. Has chronically elevated WBC ct., has been worked up by hematology and oncology with no explanation found. Denies anything recently for infection except a cold. 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 below) (usual meds, Effexor XR) low back Pain Score (Numeric/FACES): 2 - Related Data Allergies Allergy/AdvReac Type Severity Reaction Status Date / Time Penicillins Allergy Unknown Other Verified 05/13/17 15:35 Home Meds: Home Meds Albuterol Sulfate [Ventolin Hfa] 2 puff INH Q54H PRN 07/27/15 [History] Cholecalciferol (Vitamin D3) [Vitamin D] 50,000 unit PO WEEKLY 06/09/16 [History ] metFORMIN HCl [Metformin HCl ER] 500 mg PO DAILY 06/09/16 [History] Venlafaxine [Effexor] 75 mg PO BID 08/08/16 [History] Amphetamine/Dextroamphetamine [Adderall] 20 mg PO BID 09/26/16 [History] Eszopiclone [Lunesta] 2 mg PO BEDTIME 09/26/16 [History] Liraglutide [Victoza] 0.6 mg SUBCUT BEDTIME 10/30/16 [History] Albuterol Sulfate 1 inhalation INH Q4H PRN 11/02/16 [History] Fluticasone/Salmeterol [Advair 250-50 Diskus] 1 puff INH BID 12/27/16 [History] Fluticasone/Salmeterol [Advair 250-50 Diskus] 2 puff IH BID 12/31/16 [History] Methocarbamol 500 mg PO TID PRN 05/13/17 [History] Past Medical History Respiratory History: Reports: PE Other Respiratory History: pulmonary emboli 10 yrs ago Gastrointestinal History: Reports: Diverticulosis Musculoskeletal History: Reports: Fracture Neurological History: Reports: Concussion Psychiatric History: Reports: ADHD, Depression Other Psychiatric History: Pt is currently seeing a mental health counselor and on effexor Endocrine/Metabolic History: Reports: Diabetes, Type II, Obesity/BMI 30+ Hematologic History: Reports: Blood Transfusion(s), Other (See Below) Other Hematologic History: factor V leiden - Past Surgical History HEENT Surgical History: Reports: Tonsillectomy Respiratory Surgical History: Reports: Other (See Below) Other Respiratory Surgeries/Procedures: chest tube GI Surgical History: Reports: Cholecystectomy Social & Family History - Tobacco Use Smoking Status *Q: Current Every Day Smoker Years of Tobacco use: 14 Packs/Tins Daily: 1 Used Tobacco, but Quit: No Second Hand Smoke Exposure: Yes - Caffeine Use Caffeine Use: Reports: Coffee, Energy Drinks, Soda - Alcohol Use Days Per Week of Alcohol Use: 0 - Recreational Drug Use Recreational Drug Use: Yes Drug Use in Last 12 Months: Yes Recreational Drug Type: Reports: Marijuana/Hashish Other Recreational Drug Type: 3 weeks ago Recreational Drug Use Frequency: Socially Recreational Drug Last Use: 3 weeks ago. ED ROS GENERAL - Review of Systems Review Of Systems: See Below Constitutional: Reports: No Symptoms HEENT: Reports: No Symptoms Respiratory: Reports: No Symptoms Cardiovascular: Reports: No Symptoms Endocrine: Reports: No Symptoms GI/Abdominal: Reports: Constipation (occasional) : Reports: No Symptoms Musculoskeletal: Reports: No Symptoms Skin: Reports: No Symptoms Neurological: Reports: No Symptoms Psychiatric: Reports: Anxiety, Depression ED EXAM, BEHAVIORAL HEALTH - Physical Exam Exam: See Below Exam Limited By: No Limitations General Appearance: Alert, WD/WN, No Apparent Distress, Obese Eye Exam: Bilateral Eye: Normal Inspection Ears: Normal External Exam, Normal Canal, Hearing Grossly Normal, Normal TMs Nose: Normal Inspection, Normal Mucosa, No Blood Throat/Mouth: Normal Inspection, Normal Lips, Normal Oropharynx, Normal Voice, No Airway Compromise Head: Atraumatic, Normocephalic Neck: Normal Inspection, Supple, Non-Tender Respiratory/Chest: No Respiratory Distress, Lungs Clear, Normal Breath Sounds, No Accessory Muscle Use Cardiovascular: Regular Rate, Rhythm, No Edema GI/Abdominal: Normal Bowel Sounds, Soft, Non-Tender, No Distention Back Exam: Normal Inspection. No: CVA Tenderness (R), CVA Tenderness (L) Extremities: Normal Inspection, Normal Range of Motion, Non-Tender, No Pedal Edema Neurological: Alert, Normal Mood/Affect, CN II-XII Intact, Normal Cognition, No Motor/Sensory Deficits, Oriented x 3 Psychiatric: Alert, Normal Cognition, Normal Mood, Oriented, Flat Affect Skin Exam: Warm, Dry, Intact, Normal color, No rash COURSE, BEHAVIORAL HEALTH COMP - Course Vital Signs: Last Vital Signs Temp 36.3 C 05/13/17 15:54 Pulse 95 05/13/17 15:54 Resp 16 05/13/17 15:54 BP 152/109 H 05/13/17 15:54 Pulse Ox 98 05/13/17 15:54 Orders, Labs, Meds: Active Orders 24 hr Category Date Time Status HCG QUALITATIVE,URINE [URCHEM] Stat Lab 05/13/17 16:18 Ordered Potassium Chloride [Klor-Con M20] Med 05/13/17 16:50 Once 40 meq PO ONETIME ONE Laboratory Tests 05/13/17 05/13/17 05/13/17 Range/Units 16:01 16:01 16:01 WBC 18.1 H (4.5-11.0) K/uL RBC 5.69 H (3.30-5.50) M/uL Hgb 15.9 H (12.0-15.0) g/dL Hct 47.2 (36.0-48.0) % MCV 83 (80-98) fL MCH 28 (27-31) pg MCHC 34 (32-36) % Plt Count 199 (150-400) K/uL Sodium 139 L (140-148) mmol/L Potassium 3.4 L (3.6-5.2) mmol/L Chloride 100 (100-108) mmol/L Carbon Dioxide 30 (21-32) mmol/L Anion Gap 12.4 (5.0-14.0) mmol/L BUN 7 (7-18) mg/dL Creatinine 0.7 (0.6-1.0) mg/dL Est Cr Clr Drug Dosing 118.54 mL/min Estimated GFR (MDRD) > 60 (>60) Glucose 108 H (74-106) mg/dL Calcium 9.7 (8.5-10.1) mg/dL TSH, Ultra Sensitive (0.358-3.740) uIU/mL Urine Color Urine Appearance Urine pH (4.5-8.0) Ur Specific [place] (1.008-1.030) Urine Protein (NEGATIVE) mg/dL Urine Glucose (UA) (NEGATIVE) mg/dL Urine Ketones (NEGATIVE) mg/dL Urine Occult Blood (NEGATIVE) Urine Nitrite (NEGATIVE) Urine Bilirubin (NEGATIVE) Urine Urobilinogen (NORMAL) mg/dL Ur Leukocyte Esterase (NEGATIVE) Urine RBC (0-5) Urine WBC (0-5) Ur Epithelial Cells Amorphous Sediment Urine Bacteria Urine Mucus Urine Other Urine HCG, Qual Negative Ethyl Alcohol mg/dL 05/13/17 05/13/17 05/13/17 Range/Units 16:01 16:01 16:18 WBC (4.5-11.0) K/uL RBC (3.30-5.50) M/uL Hgb (12.0-15.0) g/dL Hct (36.0-48.0) % MCV (80-98) fL MCH (27-31) pg MCHC (32-36) % Plt Count (150-400) K/uL Sodium (140-148) mmol/L Potassium (3.6-5.2) mmol/L Chloride (100-108) mmol/L Carbon Dioxide (21-32) mmol/L Anion Gap (5.0-14.0) mmol/L BUN (7-18) mg/dL Creatinine (0.6-1.0) mg/dL Est Cr Clr Drug Dosing mL/min Estimated GFR (MDRD) (>60) Glucose (74-106) mg/dL Calcium (8.5-10.1) mg/dL TSH, Ultra Sensitive 1.108 (0.358-3.740) uIU/mL Urine Color Yellow Urine Appearance Clear Urine pH 8.0 (4.5-8.0) Ur Specific [place] 1.010 (1.008-1.030) Urine Protein Negative (NEGATIVE) mg/dL Urine Glucose (UA) Normal (NEGATIVE) mg/dL Urine Ketones Negative (NEGATIVE) mg/dL Urine Occult Blood Negative (NEGATIVE) Urine Nitrite Negative (NEGATIVE) Urine Bilirubin Negative (NEGATIVE) Urine Urobilinogen Normal (NORMAL) mg/dL Ur Leukocyte Esterase Negative (NEGATIVE) Urine RBC 0-5 (0-5) Urine WBC 0-5 (0-5) Ur Epithelial Cells Moderate Amorphous Sediment Not seen Urine Bacteria Moderate Urine Mucus Not seen Urine Other Urine HCG, Qual Ethyl Alcohol < 3 mg/dL Medications Discontinued Medications Generic Name Dose Route Start Last Admin Trade Name Jamalq PRN Reason Stop Dose Admin Lorazepam 1 mg 05/13/17 16:12 05/13/17 16:21 Ativan PO 05/13/17 16:13 1 mg ONETIME ONE Administration Medical Clearance: 05/13/17 16:50 cleared medically for inpatient psych treatment @ 1650h KCL 40 meq po given Departure - Departure Time of Disposition: 17:05 Disposition: DC/Tfer to Psych Hosp/Unit 65 Condition: Good Clinical Impression: Depressive disorder, Medical clearance for psychiatric admission - Discharge Information Referrals: PCP,None [Primary Care Provider] - Forms: ED Department Discharge - My Orders Last 24 Hours: My Active Orders 05/13/17 16:18 HCG QUALITATIVE,URINE [URCHEM] Stat 05/13/17 16:50 Potassium Chloride [Klor-Con M20] 40 meq PO ONETIME ONE - Assessment/Plan Last 24 Hours: My Active Orders 05/13/17 16:18 HCG QUALITATIVE,URINE [URCHEM] Stat 05/13/17 16:50 Potassium Chloride [Klor-Con M20] 40 meq PO ONETIME ONE
[2017-05-13] MEDS ORDERED: Potassium Chloride 20 MEQ Tab.ER PO ONE (16:50)
== END 2017-05-13 19:42 ==
LOC: JP.ED 15:13
DX: F32.9 Major depressive disorder, single episode, unspecified (principal); E11.9 Type 2 diabetes mellitus without complications; F17.210 Nicotine dependence, cigarettes, uncomplicated; Z88.0 Allergy status to penicillin; Z79.899 Other long term (current) drug therapy; Z79.84 Long term (current) use of oral hypoglycemic drugs
CPT/HCPCS: 36415; 80048; 80305; 81001; 81025; 84443; 85027; 99285; A9270; G0480

== ENCOUNTER 2017-07-15 01:53 | Emergency (ER) | payer MEDICAID ==
[2017-07-15 02:08] VITALS: BP 128/79
[2017-07-15] MEDS ORDERED: diphenhydrAMINE 25 MG Cap PO ONE (02:52)
--- NOTE | 2017-07-15 02:58 | EDM.PDOC ---
ED HPI GENERAL MEDICAL PROBLEM - General Chief Complaint: Allergic Reaction Stated Complaint: REACTION TO MEDS? Time Seen by Provider: 07/15/17 02:40 Source of Information: Reports: Patient, Family, RN Notes Reviewed History Limitations: Reports: No Limitations - History of Present Illness INITIAL COMMENTS - FREE TEXT/NARRATIVE: 32-year-old female presents emergency department today with following complaints headache nausea upset stomach arthralgias states the symptoms have been ongoing for the last 3 hours she was recently started on doxycycline for suspicion of tickborne illness 21 day course, she has used doxycycline in the past. No fevers no shortness of breath no chest pain joint pain Pain Score (Numeric/FACES): 8 headache Pain Score (Numeric/FACES): 8 - Related Data Allergies Allergy/AdvReac Type Severity Reaction Status Date / Time Penicillins Allergy Unknown Other Verified 07/15/17 02:23 Home Meds: Home Meds Albuterol Sulfate [Ventolin Hfa] 2 puff INH Q54H PRN 07/27/15 [History] Cholecalciferol (Vitamin D3) [Vitamin D] 50,000 unit PO WEEKLY 06/09/16 [History ] metFORMIN HCl [Metformin HCl ER] 500 mg PO DAILY 06/09/16 [History] Amphetamine/Dextroamphetamine [Adderall] 40 mg PO DAILY 09/26/16 [History] Eszopiclone [Lunesta] 3 mg PO BEDTIME 09/26/16 [History] Albuterol Sulfate 1 inhalation INH Q4H PRN 11/02/16 [History] Fluticasone/Salmeterol [Advair 250-50 Diskus] 2 puff IH BID 12/31/16 [History] Methocarbamol 500 mg PO TID PRN 05/13/17 [History] Cholecalciferol (Vitamin D3) [Vitamin D3] 2,000 unit PO DAILY 07/15/17 [History] Dextroamphetamine/Amphetamine [Adderall 20 mg Tablet] 20 mg PO DAILY 07/15/17 [ History] Doxycycline Monohydrate 100 mg PO BID 07/15/17 [History] Naproxen 500 mg PO BID 07/15/17 [History] Ondansetron [Zofran ODT] 4 mg PO Q6H PRN 07/15/17 [History] Venlafaxine [Effexor XR] 37.5 mg PO BEDTIME 07/15/17 [History] Venlafaxine [Effexor XR] 150 mg PO BEDTIME 07/15/17 [History] cloNIDine [Catapres] 0.1 mg PO BEDTIME 07/15/17 [History] hydrOXYzine Pamoate [Hydroxyzine Pamoate] 50 mg PO BID PRN 07/15/17 [History] Past Medical History HEENT History: Reports: Impaired Vision Respiratory History: Reports: PE Other Respiratory History: pulmonary emboli 10 yrs ago Gastrointestinal History: Reports: Diverticulosis Musculoskeletal History: Reports: Fracture Neurological History: Reports: Concussion Psychiatric History: Reports: ADHD, Depression, Psych Hospitalization(s), Suicide Attempt Other Psychiatric History: Pt is currently seeing a mental health counselor and on effexor Endocrine/Metabolic History: Reports: Diabetes, Type II, Obesity/BMI 30+ Hematologic History: Reports: Blood Transfusion(s), Other (See Below) Other Hematologic History: factor V leiden - Infectious Disease History Infectious Disease History: Reports: Chicken Pox - Past Surgical History HEENT Surgical History: Reports: Tonsillectomy Respiratory Surgical History: Reports: Other (See Below) Other Respiratory Surgeries/Procedures: chest tube GI Surgical History: Reports: Cholecystectomy Social & Family History - Tobacco Use Smoking Status *Q: Current Every Day Smoker Years of Tobacco use: 15 Packs/Tins Daily: 1 Used Tobacco, but Quit: No Second Hand Smoke Exposure: Yes - Caffeine Use Caffeine Use: Reports: Coffee, Energy Drinks, Soda, Tea - Alcohol Use Days Per Week of Alcohol Use: 0 - Recreational Drug Use Recreational Drug Use: No Drug Use in Last 12 Months: Yes Recreational Drug Type: Reports: Marijuana/Hashish Other Recreational Drug Type: 3 weeks ago Recreational Drug Use Frequency: Socially Recreational Drug Last Use: 3 weeks ago. ED ROS ALLERGIC REACTION - Review of Systems Review Of Systems: See Below Constitutional: Denies: Fever, Chills HEENT: Reports: No Symptoms Respiratory: Reports: Other (Feels hard to breathe). Denies: Cough, Sputum Cardiovascular: Reports: No Symptoms GI/Abdominal: Reports: Nausea. Denies: Vomiting : Reports: No Symptoms Musculoskeletal: Reports: Joint Pain, Muscle Pain Skin: Reports: No Symptoms Neurological: Reports: No Symptoms Psychiatric: Reports: Anxiety ED EXAM GENERAL NO PERIP PULSE - Physical Exam Exam: See Below Exam Limited By: No Limitations Eye Exam: Bilateral Eye: Normal Inspection Neck: Normal Inspection, Supple, Non-Tender, Full Range of Motion Respiratory/Chest: No Respiratory Distress, Lungs Clear, Normal Breath Sounds, No Accessory Muscle Use, Chest Non-Tender Cardiovascular: Regular Rate, Rhythm, No Murmur GI/Abdominal: Soft, Non-Tender Comments: Does become agitated tearful during the exam when I questioned her about her joint aches, she initially stated that the reason she went to the urgent care clinic was for joint aches however then she stated she developed joint aches over the last 3 hours when I questioned her on this she became tearful and states I yelled at her and caused her to get confused. Course - Vital Signs Last Recorded V/S: Last Vital Signs Temp 97.9 F 07/15/17 02:14 Pulse 73 07/15/17 02:14 Resp 34 H 07/15/17 02:14 BP 128/79 07/15/17 02:14 Pulse Ox 96 07/15/17 02:14 - Orders/Labs/Meds Labs: Laboratory Tests 07/15/17 07/15/17 07/15/17 Range/Units 03:00 03:00 03:00 WBC 18.0 H (4.5-11.0) K/uL RBC 5.06 (3.30-5.50) M/uL Hgb 14.1 (12.0-15.0) g/dL Hct 41.8 (36.0-48.0) % MCV 83 (80-98) fL MCH 28 (27-31) pg MCHC 34 (32-36) % Plt Count 171 (150-400) K/uL Neut % (Auto) 62 (36-66) % Lymph % (Auto) 24 (24-44) % [place] % (Auto) 9 H (2-6) % Eos % (Auto) 4 (2-4) % Baso % (Auto) 0 (0-1) % D-Dimer, Quantitative (0.0-400.0) ng/mL Sodium 142 (140-148) mmol/L Potassium 3.7 (3.6-5.2) mmol/L Chloride 104 (100-108) mmol/L Carbon Dioxide 26 (21-32) mmol/L Anion Gap 12.3 (5.0-14.0) mmol/L BUN 5 L (7-18) mg/dL Creatinine 0.7 (0.6-1.0) mg/dL Est Cr Clr Drug Dosing 117.47 mL/min Estimated GFR (MDRD) > 60 (>60) Glucose 106 (74-106) mg/dL Calcium 8.7 (8.5-10.1) mg/dL Creatine Kinase 69 (26-192) U/L C-Reactive Protein 0.39 H (0.0-0.3) mg/dL 07/15/17 Range/Units 03:00 WBC (4.5-11.0) K/uL RBC (3.30-5.50) M/uL Hgb (12.0-15.0) g/dL Hct (36.0-48.0) % MCV (80-98) fL MCH (27-31) pg MCHC (32-36) % Plt Count (150-400) K/uL Neut % (Auto) (36-66) % Lymph % (Auto) (24-44) % [place] % (Auto) (2-6) % Eos % (Auto) (2-4) % Baso % (Auto) (0-1) % D-Dimer, Quantitative 143 (0.0-400.0) ng/mL Sodium (140-148) mmol/L Potassium (3.6-5.2) mmol/L Chloride (100-108) mmol/L Carbon Dioxide (21-32) mmol/L Anion Gap (5.0-14.0) mmol/L BUN (7-18) mg/dL Creatinine (0.6-1.0) mg/dL Est Cr Clr Drug Dosing mL/min Estimated GFR (MDRD) (>60) Glucose (74-106) mg/dL Calcium (8.5-10.1) mg/dL Creatine Kinase (26-192) U/L C-Reactive Protein (0.0-0.3) mg/dL Meds: Medications Discontinued Medications Generic Name Dose Route Start Last Admin Trade Name Freq PRN Reason Stop Dose Admin Diphenhydramine HCl 25 mg 07/15/17 02:52 07/15/17 02:56 Benadryl PO 07/15/17 02:53 25 mg ONETIME ONE Administration Departure - Departure Time of Disposition: 03:48 Disposition: Home, Self-Care 01 Condition: Fair Clinical Impression: Allergic reaction caused by a drug Qualifiers: Encounter type: initial encounter Qualified Code(s): T78.40XA - Allergy, unspecified, initial encounter - Discharge Information Referrals: PCP,None [Primary Care Provider] - Forms: ED Department Discharge Additional Instructions: Continue to use Benadryl as needed for symptomatic relief, Please followup with your primary care provider in the 3-5 days if not better, please call return to the emergency department with worsening of symptoms. - Assessment/Plan Plan: Assessment Acuity = acute Site and laterality = allergic reaction Etiology = probably secondary to doxycycline Manifestations = none Location of injury = Home Lab values = WBC elevated at 18 consistent leukocytosis uncertain etiology, BMP within normal limits CK within normal is d-dimer is negative Plan Her symptoms are most likely due to adverse reaction to doxycycline recommend stopping this drug doesn't have 18 hours, she should be symptom free within a week, follow-up with primary care 3-5 days if no improvement This note was dictated using [employer] voice recognition software please call with any questions on syntax or christal.
== END 2017-07-15 04:02 | disposition home or self-care (01) ==
LOC: JP.ED 01:53
DX: G44.40 Drug-induced headache, not elsewhere classified, not intractable (principal); T36.4X5A Adverse effect of tetracyclines, initial encounter; E11.9 Type 2 diabetes mellitus without complications; F17.210 Nicotine dependence, cigarettes, uncomplicated; Z88.0 Allergy status to penicillin; Z79.84 Long term (current) use of oral hypoglycemic drugs; Z79.899 Other long term (current) drug therapy
CPT/HCPCS: 36415; 80048; 82550; 85025; 85379; 86140; 99284; A9270

== ENCOUNTER 2017-08-24 21:12 | Emergency (ER) | payer MEDICAID ==
[2017-08-24 21:56] VITALS: BP 137/90
[2017-08-24] MEDS ORDERED: LORazepam 2 MG/ML SDV IM ONE (22:24)
--- NOTE | 2017-08-24 23:13 | EDM.PDOCBH ---
ED HPI GENERAL MEDICAL PROBLEM - General Chief Complaint: Behavioral/Psych Stated Complaint: FRIEND TODAY VERY ANXIOUS Time Seen by Provider: 08/24/17 21:55 Source of Information: Reports: Patient, Family History Limitations: Reports: No Limitations - History of Present Illness INITIAL COMMENTS - FREE TEXT/NARRATIVE: pt lost her fiance this evening and she is very upset. She did not take all of her meds as usual today. She is crying and just can,t calm down. She feels like if she just calms down and is able to think she will be ok. She has no thoughts of harming herself and she will have her mother with her. Onset: Today Duration: Hour(s): Location: Reports: Generalized Associated Symptoms: Reports: No Other Symptoms neck tension Pain Score (Numeric/FACES): 4 - Related Data Allergies Allergy/AdvReac Type Severity Reaction Status Date / Time Penicillins Allergy Unknown Other Verified 08/24/17 22:01 Home Meds: Home Meds Albuterol Sulfate [Ventolin Hfa] 2 puff INH Q54H PRN 07/27/15 [History] Cholecalciferol (Vitamin D3) [Vitamin D] 50,000 unit PO WEEKLY 06/09/16 [History ] metFORMIN HCl [Metformin HCl ER] 500 mg PO DAILY 06/09/16 [History] Amphetamine/Dextroamphetamine [Adderall] 40 mg PO DAILY 09/26/16 [History] Eszopiclone [Lunesta] 3 mg PO BEDTIME 09/26/16 [History] Albuterol Sulfate 1 inhalation INH Q4H PRN 11/02/16 [History] Fluticasone/Salmeterol [Advair 250-50 Diskus] 2 puff IH BID 12/31/16 [History] Methocarbamol 500 mg PO TID PRN 05/13/17 [History] Cholecalciferol (Vitamin D3) [Vitamin D3] 2,000 unit PO DAILY 07/15/17 [History] Dextroamphetamine/Amphetamine [Adderall 20 mg Tablet] 20 mg PO DAILY 07/15/17 [ History] Naproxen 500 mg PO BID 07/15/17 [History] Ondansetron [Zofran ODT] 4 mg PO Q6H PRN 07/15/17 [History] Venlafaxine [Effexor XR] 37.5 mg PO BEDTIME 07/15/17 [History] Venlafaxine [Effexor XR] 150 mg PO BEDTIME 07/15/17 [History] cloNIDine [Catapres] 0.1 mg PO BEDTIME 07/15/17 [History] hydrOXYzine Pamoate [Hydroxyzine Pamoate] 50 mg PO BID PRN 07/15/17 [History] Past Medical History HEENT History: Reports: Impaired Vision Respiratory History: Reports: PE Other Respiratory History: pulmonary emboli 10 yrs ago Gastrointestinal History: Reports: Diverticulosis Musculoskeletal History: Reports: Fracture Neurological History: Reports: Concussion Psychiatric History: Reports: ADHD, Depression, Psych Hospitalization(s), Suicide Attempt Other Psychiatric History: Pt is currently seeing a mental health counselor and on effexor Endocrine/Metabolic History: Reports: Diabetes, Type II, Obesity/BMI 30+ Hematologic History: Reports: Blood Transfusion(s), Other (See Below) Other Hematologic History: factor V leiden - Infectious Disease History Infectious Disease History: Reports: Chicken Pox - Past Surgical History HEENT Surgical History: Reports: Tonsillectomy Respiratory Surgical History: Reports: Other (See Below) Other Respiratory Surgeries/Procedures: chest tube GI Surgical History: Reports: Cholecystectomy Social & Family History - Tobacco Use Smoking Status *Q: Current Every Day Smoker Years of Tobacco use: 13 Packs/Tins Daily: 1 - Caffeine Use Caffeine Use: Reports: Coffee, Energy Drinks, Soda, Tea - Recreational Drug Use Recreational Drug Use: Yes Drug Use in Last 12 Months: Yes Recreational Drug Type: Reports: Marijuana/Hashish Recreational Drug Use Frequency: Rarely ED ROS GENERAL - Review of Systems Review Of Systems: See Below Constitutional: Reports: No Symptoms HEENT: Reports: No Symptoms Respiratory: Reports: No Symptoms Cardiovascular: Reports: No Symptoms Endocrine: Reports: No Symptoms GI/Abdominal: Reports: No Symptoms : Reports: No Symptoms Musculoskeletal: Reports: No Symptoms Neurological: Reports: No Symptoms Psychiatric: Reports: Agitation, Anxiety, Other (pt lost her boyfriend today and she is feeling very upset. ) ED EXAM, BEHAVIORAL HEALTH - Physical Exam Exam: See Below Text/Narrative:: pt is crying nonstop. She has a headache because of so much crying. Exam Limited By: No Limitations General Appearance: Alert, Anxious, Moderate Distress Ears: Normal TMs Nose: Normal Inspection Throat/Mouth: Normal Inspection Head: Atraumatic Neck: Normal Inspection Respiratory/Chest: No Respiratory Distress Cardiovascular: Regular Rate, Rhythm GI/Abdominal: Soft, Non-Tender Rectal (Female) Exam: Deferred Back Exam: Normal Inspection Psychiatric: Depressed Mood COURSE, BEHAVIORAL HEALTH COMP - Course Vital Signs: Last Vital Signs Temp 37.0 C 08/24/17 22:05 Pulse 109 H 08/24/17 22:05 Resp 18 08/24/17 22:05 BP 137/90 08/24/17 22:05 Pulse Ox 97 08/24/17 22:05 Orders, Labs, Meds: Medications Discontinued Medications Generic Name Dose Route Start Last Admin Trade Name Freq PRN Reason Stop Dose Admin Ketorolac Tromethamine 60 mg 08/24/17 23:41 08/24/17 23:50 Toradol IM 08/24/17 23:42 60 mg ONETIME ONE Administration Lorazepam 1 mg 08/24/17 22:24 08/24/17 22:37 Ativan IM 08/24/17 22:25 1 mg ONETIME ONE Administration Medical Clearance: 08/24/17 23:49 pt did calm down after the ativan. She had a headache and she was given torodol 60mg im. She has not taken her meds as she is to take them. Departure - Departure Time of Disposition: 23:55 Disposition: Home, Self-Care 01 Condition: Fair Clinical Impression: Anxiety, Grief reaction - Discharge Information Instructions: Panic Attack, [id number], Complicated Grieving Referrals: PCP,None [Primary Care Provider] - Forms: ED Department Discharge Care Plan Goals: cont same meds, ativan 1mg q6h prn for anxiety
[2017-08-24] MEDS ORDERED: Ketorolac 60 MG/2 ML SDV IM ONE (23:41)
== END 2017-08-25 00:14 | disposition home or self-care (01) ==
LOC: JP.ED 21:12
DX: F43.22 Adjustment disorder with anxiety (principal); E11.9 Type 2 diabetes mellitus without complications; E66.9 Obesity, unspecified; F17.210 Nicotine dependence, cigarettes, uncomplicated; Z88.0 Allergy status to penicillin; Z79.84 Long term (current) use of oral hypoglycemic drugs
CPT/HCPCS: 96372; 99283; J1885; J2060

== ENCOUNTER 2017-09-06 22:46 | Emergency (ER) | payer MEDICAID ==
[2017-09-06] MEDS ORDERED: Sodium Chloride 0.9% 10 ML Syringe FLUSH PRN (23:11)
[2017-09-06] MEDS ORDERED: Ondansetron 4 MG/2 ML SDV IVPUSH PRN (23:14)
[2017-09-06] MEDS ORDERED: Sodium Chloride 0.9% 1,000 ML IV SCH (23:15)
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
[2017-09-07 01:43] VITALS: BP 124/77
== END 2017-09-07 07:15 | disposition home or self-care (01) ==
LOC: JP.ED 22:46
DX: F10.129 Alcohol abuse with intoxication, unspecified (principal); R40.0 Somnolence; Y90.1 Blood alcohol level of 20-39 mg/100 ml; E11.9 Type 2 diabetes mellitus without complications; Z79.899 Other long term (current) drug therapy; Z88.0 Allergy status to penicillin
CPT/HCPCS: 36415; 80053; 80305; 81001; 84703; 85025; 93005; 96361; 96374; 99284; G0480; J2405; J7030; J7050

== ENCOUNTER 2017-09-27 22:47 | Emergency (ER) | payer MEDICAID ==
[2017-09-28 03:02] VITALS: BP 110/47
--- NOTE | 2017-09-28 03:44 | EDM.PDOCBH ---
<Dimas Esteban - Last Filed: 09/28/17 06:51> ED HPI GENERAL MEDICAL PROBLEM - General Chief Complaint: Behavioral/Psych Stated Complaint: EVAL Time Seen by Provider: 09/28/17 03:36 Source of Information: Reports: Patient, Old Records, RN Notes Reviewed History Limitations: Reports: No Limitations - History of Present Illness INITIAL COMMENTS - FREE TEXT/NARRATIVE: Lives by herself Chief complaint Suicidal thoughts, depression History of present illness 32-year-old female, she waited nearly 4 hours to be seen as it was such a busy evening Radha 4 weeks ago of diabetic infection complication gangrene She is left living alone with her cats Some financial stresses Difficulty dealing with her emotions anger spells and crying spells, no violence no alcohol tonight , but 2 weeks ago she did drink to excess Uses marijuana denies other drugs Tonight she was so frustrated and upset she left her job walked out. Strong suicidal thoughts of taking an overdose. History of one previous psychiatric admission in April of this year after taking or attempting to take an overdose, at that time her radha was alive and stopped her from following through with that. No hallucinations or delusions, no paranoid thoughts Headache Pain Score (Numeric/FACES): 4 - Related Data Allergies Allergy/AdvReac Type Severity Reaction Status Date / Time Penicillins Allergy Unknown Other Verified 08/24/17 22:01 Home Meds: Home Meds Albuterol Sulfate [Ventolin Hfa] 2 puff INH Q54H PRN 07/27/15 [History] Cholecalciferol (Vitamin D3) [Vitamin D] 50,000 unit PO WEEKLY 06/09/16 [History ] metFORMIN HCl [Metformin HCl ER] 500 mg PO DAILY 06/09/16 [History] Amphetamine/Dextroamphetamine [Adderall] 40 mg PO DAILY 09/26/16 [History] Eszopiclone [Lunesta] 3 mg PO BEDTIME 09/26/16 [History] Albuterol Sulfate 1 inhalation INH Q4H PRN 11/02/16 [History] Fluticasone/Salmeterol [Advair 250-50 Diskus] 2 puff IH BID 12/31/16 [History] Cholecalciferol (Vitamin D3) [Vitamin D3] 2,000 unit PO DAILY 07/15/17 [History] Dextroamphetamine/Amphetamine [Adderall 20 mg Tablet] 20 mg PO DAILY 07/15/17 [ History] Ondansetron [Zofran ODT] 4 mg PO Q6H PRN 07/15/17 [History] Venlafaxine [Effexor XR] 187.5 mg PO BEDTIME 07/15/17 [History] cloNIDine [Catapres] 0.1 mg PO BEDTIME 07/15/17 [History] hydrOXYzine Pamoate [Hydroxyzine Pamoate] 50 mg PO BID PRN 07/15/17 [History] Past Medical History HEENT History: Reports: Impaired Vision Respiratory History: Reports: PE Other Respiratory History: pulmonary emboli 10 yrs ago Gastrointestinal History: Reports: Diverticulosis Musculoskeletal History: Reports: Fracture Neurological History: Reports: Concussion Psychiatric History: Reports: ADHD, Depression, Psych Hospitalization(s), Suicide Attempt Other Psychiatric History: Pt is currently seeing a mental health counselor and on effexor Endocrine/Metabolic History: Reports: Diabetes, Type II, Obesity/BMI 30+ Hematologic History: Reports: Blood Transfusion(s), Other (See Below) Other Hematologic History: factor V leiden - Infectious Disease History Infectious Disease History: Reports: Chicken Pox - Past Surgical History HEENT Surgical History: Reports: Tonsillectomy Respiratory Surgical History: Reports: Other (See Below) Other Respiratory Surgeries/Procedures: chest tube GI Surgical History: Reports: Cholecystectomy Social & Family History - Tobacco Use Smoking Status *Q: Current Every Day Smoker Years of Tobacco use: 16 Packs/Tins Daily: 0.5 Used Tobacco, but Quit: No Second Hand Smoke Exposure: Yes - Caffeine Use Caffeine Use: Reports: Coffee, Energy Drinks - Alcohol Use Days Per Week of Alcohol Use: 0 - Recreational Drug Use Recreational Drug Use: Yes Recreational Drug Type: Reports: Marijuana/Hashish Recreational Drug Use Frequency: Rarely ED ROS GENERAL - Review of Systems Review Of Systems: See Below Constitutional: Reports: Decreased Appetite. Denies: Fever, Diaphoresis HEENT: Reports: No Symptoms Respiratory: Reports: No Symptoms Cardiovascular: Reports: No Symptoms GI/Abdominal: Reports: No Symptoms : Reports: No Symptoms Musculoskeletal: Reports: No Symptoms Skin: Reports: No Symptoms Neurological: Reports: No Symptoms Psychiatric: Reports: Anxiety, Depression, Mood Lability, Suicidal Ideation. Denies: Agitation, Confusion, Hallucinations Immunologic: Reports: No Symptoms ED EXAM, BEHAVIORAL HEALTH - Physical Exam Exam: See Below Exam Limited By: No Limitations General Appearance: Alert, Mild Distress, Obese, Other (Looks tired but otherwise well, vital signs are within normal limits, No difficulty speaking or breathing) Eye Exam: Bilateral Eye: Normal Inspection Ears: Normal External Exam Nose: Normal Inspection Head: Atraumatic, Normocephalic Neck: Normal Inspection Respiratory/Chest: No Respiratory Distress, No Accessory Muscle Use, Chest Non- Tender Cardiovascular: Normal Peripheral Pulses, Regular Rate, Rhythm GI/Abdominal: Non-Tender Extremities: Normal Inspection Neurological: Alert, No Motor/Sensory Deficits Psychiatric: Alert, Depressed Mood, Suicidal Plan, Suicidal Thoughts. No: Uncooperative, Flight of Ideas, Homicidal Thoughts, Temple Delusions, Auditory Hallucinations, Visual Hallucinations, Pressured Speech COURSE, BEHAVIORAL HEALTH COMP - Course Vital Signs: Last Vital Signs Temp 96.8 F 09/28/17 03:00 Pulse 88 09/28/17 03:00 Resp 16 09/28/17 03:00 BP 110/47 L 09/28/17 03:00 Pulse Ox 96 09/28/17 03:00 Orders, Labs, Meds: Active Orders 24 hr Category Date Time Status DRUG SCREEN, URINE [URCHEM] Stat Lab 09/28/17 04:00 Ordered HCG QUALITATIVE,URINE [URCHEM] Stat Lab 09/28/17 04:00 Ordered UA W/MICROSCOPIC [URIN] Stat Lab 09/28/17 04:00 Ordered Laboratory Tests 09/28/17 09/28/17 09/28/17 Range/Units 04:00 04:00 04:00 WBC (4.5-11.0) K/uL RBC (3.30-5.50) M/uL Hgb (12.0-15.0) g/dL Hct (36.0-48.0) % MCV (80-98) fL MCH (27-31) pg MCHC (32-36) % Plt Count (150-400) K/uL Sodium (140-148) mmol/L Potassium (3.6-5.2) mmol/L Chloride (100-108) mmol/L Carbon Dioxide (21-32) mmol/L Anion Gap (5.0-14.0) mmol/L BUN (7-18) mg/dL Creatinine (0.6-1.0) mg/dL Est Cr Clr Drug Dosing mL/min Estimated GFR (MDRD) (>60) Glucose (74-106) mg/dL Calcium (8.5-10.1) mg/dL Total Bilirubin (0.2-1.0) mg/dL AST (15-37) U/L ALT (12-78) U/L Alkaline Phosphatase (46-116) U/L Total Protein (6.4-8.2) g/dL Albumin (3.4-5.0) g/dL Globulin (2.3-3.5) g/dL Albumin/Globulin Ratio (1.2-2.2) Free T4 (0.76-1.46) ng/dL TSH, Ultra Sensitive (0.358-3.740) uIU/mL Urine Color Yellow Urine Appearance Clear Urine pH 5.0 (4.5-8.0) Ur Specific Huffman 1.020 (1.008-1.030) Urine Protein Negative (NEGATIVE) mg/dL Urine Glucose (UA) Normal (NEGATIVE) mg/dL Urine Ketones Negative (NEGATIVE) mg/dL Urine Occult Blood Large (NEGATIVE) Urine Nitrite Negative (NEGATIVE) Urine Bilirubin Negative (NEGATIVE) Urine Urobilinogen Normal (NORMAL) mg/dL Ur Leukocyte Esterase Negative (NEGATIVE) Urine RBC 0-5 (0-5) Urine WBC 0-5 (0-5) Ur Epithelial Cells Few Amorphous Sediment Not seen Urine Bacteria Few Urine Mucus Not seen Urine HCG, Qual Negative Salicylates (2.0-20.0) mg/dL Urine Opiates Screen Negative (NEGATIVE) Ur Oxycodone Screen Negative (NEGATIVE) Urine Methadone Screen Negative (NEGATIVE) Ur Propoxyphene Screen Negative (NEGATIVE) Acetaminophen (10.0-30.0) ug/mL Ur Barbiturates Screen Negative (NEGATIVE) Ur Tricyclics Screen Negative (NEGATIVE) Ur Phencyclidine Scrn Negative (NEGATIVE) Ur Amphetamine Screen Negative (NEGATIVE) U Methamphetamines Scrn Negative (NEGATIVE) Urine MDMA Screen Negative (NEGATIVE) U Benzodiazepines Scrn Negative (NEGATIVE) U Cocaine Metab Screen Negative (NEGATIVE) U Marijuana (THC) Screen Negative (NEGATIVE) Ethyl Alcohol mg/dL 09/28/17 09/28/17 09/28/17 Range/Units 04:05 04:05 04:05 WBC 16.6 H (4.5-11.0) K/uL RBC 5.01 (3.30-5.50) M/uL Hgb 13.8 (12.0-15.0) g/dL Hct 41.2 (36.0-48.0) % MCV 82 (80-98) fL MCH 28 (27-31) pg MCHC 34 (32-36) % Plt Count 155 (150-400) K/uL Sodium 138 L (140-148) mmol/L Potassium 3.3 L (3.6-5.2) mmol/L Chloride 104 (100-108) mmol/L Carbon Dioxide 24 (21-32) mmol/L Anion Gap 13.3 (5.0-14.0) mmol/L BUN 8 (7-18) mg/dL Creatinine 0.6 (0.6-1.0) mg/dL Est Cr Clr Drug Dosing 137.04 mL/min Estimated GFR (MDRD) > 60 (>60) Glucose 88 (74-106) mg/dL Calcium 8.8 (8.5-10.1) mg/dL Total Bilirubin 0.4 D (0.2-1.0) mg/dL AST 18 (15-37) U/L ALT 30 (12-78) U/L Alkaline Phosphatase 63 (46-116) U/L Total Protein 6.7 (6.4-8.2) g/dL Albumin 3.2 L (3.4-5.0) g/dL Globulin 3.5 (2.3-3.5) g/dL Albumin/Globulin Ratio 0.9 L (1.2-2.2) Free T4 (0.76-1.46) ng/dL TSH, Ultra Sensitive 5.330 H (0.358-3.740) uIU/mL Urine Color Urine Appearance Urine pH (4.5-8.0) Ur Specific Huffman (1.008-1.030) Urine Protein (NEGATIVE) mg/dL Urine Glucose (UA) (NEGATIVE) mg/dL Urine Ketones (NEGATIVE) mg/dL Urine Occult Blood (NEGATIVE) Urine Nitrite (NEGATIVE) Urine Bilirubin (NEGATIVE) Urine Urobilinogen (NORMAL) mg/dL Ur Leukocyte Esterase (NEGATIVE) Urine RBC (0-5) Urine WBC (0-5) Ur Epithelial Cells Amorphous Sediment Urine Bacteria Urine Mucus Urine HCG, Qual Salicylates 4.0 (2.0-20.0) mg/dL Urine Opiates Screen (NEGATIVE) Ur Oxycodone Screen (NEGATIVE) Urine Methadone Screen (NEGATIVE) Ur Propoxyphene Screen (NEGATIVE) Acetaminophen 0.0 L (10.0-30.0) ug/mL Ur Barbiturates Screen (NEGATIVE) Ur Tricyclics Screen (NEGATIVE) Ur Phencyclidine Scrn (NEGATIVE) Ur Amphetamine Screen (NEGATIVE) U Methamphetamines Scrn (NEGATIVE) Urine MDMA Screen (NEGATIVE) U Benzodiazepines Scrn (NEGATIVE) U Cocaine Metab Screen (NEGATIVE) U Marijuana (THC) Screen (NEGATIVE) Ethyl Alcohol mg/dL 09/28/17 09/28/17 Range/Units 04:05 05:32 WBC (4.5-11.0) K/uL RBC (3.30-5.50) M/uL Hgb (12.0-15.0) g/dL Hct (36.0-48.0) % MCV (80-98) fL MCH (27-31) pg MCHC (32-36) % Plt Count (150-400) K/uL Sodium (140-148) mmol/L Potassium (3.6-5.2) mmol/L Chloride (100-108) mmol/L Carbon Dioxide (21-32) mmol/L Anion Gap (5.0-14.0) mmol/L BUN (7-18) mg/dL Creatinine (0.6-1.0) mg/dL Est Cr Clr Drug Dosing mL/min Estimated GFR (MDRD) (>60) Glucose (74-106) mg/dL Calcium (8.5-10.1) mg/dL Total Bilirubin (0.2-1.0) mg/dL AST (15-37) U/L ALT (12-78) U/L Alkaline Phosphatase (46-116) U/L Total Protein (6.4-8.2) g/dL Albumin (3.4-5.0) g/dL Globulin (2.3-3.5) g/dL Albumin/Globulin Ratio (1.2-2.2) Free T4 1.02 (0.76-1.46) ng/dL TSH, Ultra Sensitive (0.358-3.740) uIU/mL Urine Color Urine Appearance Urine pH (4.5-8.0) Ur Specific Huffman (1.008-1.030) Urine Protein (NEGATIVE) mg/dL Urine Glucose (UA) (NEGATIVE) mg/dL Urine Ketones (NEGATIVE) mg/dL Urine Occult Blood (NEGATIVE) Urine Nitrite (NEGATIVE) Urine Bilirubin (NEGATIVE) Urine Urobilinogen (NORMAL) mg/dL Ur Leukocyte Esterase (NEGATIVE) Urine RBC (0-5) Urine WBC (0-5) Ur Epithelial Cells Amorphous Sediment Urine Bacteria Urine Mucus Urine HCG, Qual Salicylates (2.0-20.0) mg/dL Urine Opiates Screen (NEGATIVE) Ur Oxycodone Screen (NEGATIVE) Urine Methadone Screen (NEGATIVE) Ur Propoxyphene Screen (NEGATIVE) Acetaminophen (10.0-30.0) ug/mL Ur Barbiturates Screen (NEGATIVE) Ur Tricyclics Screen (NEGATIVE) Ur Phencyclidine Scrn (NEGATIVE) Ur Amphetamine Screen (NEGATIVE) U Methamphetamines Scrn (NEGATIVE) Urine MDMA Screen (NEGATIVE) U Benzodiazepines Scrn (NEGATIVE) U Cocaine Metab Screen (NEGATIVE) U Marijuana (THC) Screen (NEGATIVE) Ethyl Alcohol < 3 mg/dL Medications Discontinued Medications Generic Name Dose Route Start Last Admin Trade Name Russel PRN Reason Stop Dose Admin Acetaminophen 1,000 mg 09/28/17 04:06 09/28/17 04:23 Tylenol Extra Strength PO 09/28/17 04:07 1,000 mg ONETIME ONE Administration Hydroxyzine HCl 25 mg 09/28/17 04:06 09/28/17 04:23 Atarax PO 09/28/17 04:07 25 mg ONETIME ONE Administration Re-Assessment/Re-Exam: 32-year-old female with long-standing history of depression and ADHD who presents with suicidal ideation Recent stressors include the loss of her fianc and financial stresses Previous psychiatric admission for attempted overdose in April of this year. May benefit from hospitalization Behavioral health investigations ordered she is chronic elevation WBC, the current elevation is no change TSH is also elevated but T4 is normal so she has normal thyroid hormone levels. urine drug screen is negative, salicylate acetaminophen and alcohol negative Plan for psychiatric admission for emotional lability, suicidal thoughts and planning and situational stress with recent of fianc She wishes to go to [place], the psychiatric unit there called [facility], does not accept violent individuals and this is better for her to she gets very anxious with violent environment. In addition she was there in April and have a good experience there. No bed available better now but may be available after [address] Mayberry pending disposition Departure - Departure Disposition: DC/Tfer to Other 70 Condition: Good Clinical Impression: Reaction, situational, acute, to stress Major depression Qualifiers: Major depression recurrence: recurrent Active/Remission status: currently active Major depression episode severity: moderate Qualified Code(s): F33.1 - Major depressive disorder, recurrent, moderate - Discharge Information Instructions: Major Depressive Disorder, Adult, [id number] Referrals: PCP,None [Primary Care Provider] - Forms: ED Department Discharge <Perez Mayberry - Last Filed: 09/28/17 16:53> COURSE, BEHAVIORAL HEALTH COMP - Course Re-Assessment/Re-Exam: Patient was accepted to [facility], and transportation was arranged. There was some concern about her history of being on Coumadin because of factor V deficiency, however and reviewing her records she has not been on Coumadin for possibly the last few years, and this can be restarted when she is discharged from the facility. Compliance is a factor however and she may elect to not take it after discharge. Departure - Departure Time of Disposition: 12:18
[2017-09-28] MEDS ORDERED: hydrOXYzine HCl 25 MG Tab PO ONE (04:06)
[2017-09-28] MEDS ORDERED: Acetaminophen 500 MG Tab PO ONE (04:06)
== END 2017-09-28 12:18 | disposition other institution (70) ==
LOC: JP.ED 22:47
DX: F33.1 Major depressive disorder, recurrent, moderate (principal); F43.0 Acute stress reaction; F17.210 Nicotine dependence, cigarettes, uncomplicated; Z88.0 Allergy status to penicillin; Z79.899 Other long term (current) drug therapy
CPT/HCPCS: 36415; 80053; 80305; 81001; 81025; 84439; 84443; 85027; 99285; A9270; G0480

== ENCOUNTER 2018-08-13 20:02 | Emergency (ER) | payer MEDICAID ==
[2018-08-13 21:17] VITALS: BP 163/118
--- NOTE | 2018-08-13 21:56 | EDM.PDOC ---
ED HPI GENERAL MEDICAL PROBLEM - General Chief Complaint: General Stated Complaint: EVAL DIZZY Time Seen by Provider: 08/13/18 21:42 Source of Information: Reports: Patient, RN Notes Reviewed History Limitations: Reports: No Limitations - History of Present Illness INITIAL COMMENTS - FREE TEXT/NARRATIVE: 33-year-old female presents emergency department today with complaints of lightheadedness and dizziness as well as nausea and vomiting and decreased appetite. She recently had Abilify added she is on 2 mg dose she is taking a total of 3 days worth of medication. She's never been on this medication before - Related Data Allergies Allergy/AdvReac Type Severity Reaction Status Date / Time Penicillins Allergy Unknown Other Verified 08/13/18 20:57 Home Meds: Home Meds Eszopiclone [Lunesta] 3 mg PO BEDTIME 09/26/16 [History] Albuterol Sulfate 1 inhalation INH Q4H PRN 11/02/16 [History] Fluticasone/Salmeterol [Advair 250-50 Diskus] 2 puff IH BID 12/31/16 [History] Cholecalciferol (Vitamin D3) [Vitamin D3] 4,000 unit PO DAILY 07/15/17 [History] hydrOXYzine pamoate [Hydroxyzine Pamoate] 25 mg PO BID PRN 07/15/17 [History] DULoxetine [Cymbalta] 90 mg PO DAILY 03/16/18 [History] *Magnesium 08/13/18 [History] ARIPiprazole [Abilify] 2 mg PO DAILY 08/13/18 [History] Amphetamine/Dextroamphetamine [Adderall] 10 mg PO DAILY 08/13/18 [History] Amphetamine/Dextroamphetamine [Adderall] 90 mg PO DAILY 08/13/18 [History] Omeprazole 20 mg PO BEDTIME 08/13/18 [History] Warfarin [Coumadin] 10 mg PO DAILY 08/13/18 [History] Past Medical History HEENT History: Reports: Impaired Vision Cardiovascular History: Reports: Blood Clots/VTE/DVT (Factor V), Hypertension Respiratory History: Reports: Asthma, PE Other Respiratory History: pulmonary emboli 10 yrs ago Gastrointestinal History: Reports: Diverticulosis, GERD Musculoskeletal History: Reports: Fracture Neurological History: Reports: Concussion Other Neuro History: degenerational discs Psychiatric History: Reports: ADHD, Anxiety, Depression, Psych Hospitalization(s ), PTSD, Suicide Attempt Other Psychiatric History: Pt is currently seeing a mental health counselor at [facility] in [place] Endocrine/Metabolic History: Reports: Diabetes, Type II, Obesity/BMI 30+ Hematologic History: Reports: Anticoagulation Therapy, Blood Transfusion(s), Other (See Below) Other Hematologic History: factor V leiden Dermatologic History: Reports: Cellulitis - Infectious Disease History Infectious Disease History: Reports: Chicken Pox - Past Surgical History Head Surgeries/Procedures: Reports: None HEENT Surgical History: Reports: Tonsillectomy Respiratory Surgical History: Reports: Other (See Below) Other Respiratory Surgeries/Procedures: chest tube GI Surgical History: Reports: Cholecystectomy, Colonoscopy Endocrine Surgical History: Reports: None Neurological Surgical History: Reports: None, Other (See Below) Musculoskeletal Surgical History: Reports: None Dermatological Surgical History: Reports: None Social & Family History - Family History Family Medical History: Noncontributory - Tobacco Use Smoking Status *Q: Current Every Day Smoker Years of Tobacco use: 16 Packs/Tins Daily: 0.2 - Caffeine Use Caffeine Use: Reports: None - Recreational Drug Use Recreational Drug Use: No ED ROS GENERAL - Review of Systems Review Of Systems: See Below Constitutional: Reports: No Symptoms HEENT: Reports: No Symptoms Respiratory: Reports: No Symptoms Cardiovascular: Reports: No Symptoms GI/Abdominal: Reports: Nausea Neurological: Reports: Dizziness ED EXAM, GENERAL - Physical Exam Exam: See Below Exam Limited By: No Limitations General Appearance: Alert, WD/WN, No Apparent Distress Respiratory/Chest: No Respiratory Distress, Lungs Clear, Normal Breath Sounds, No Accessory Muscle Use Cardiovascular: Regular Rate, Rhythm, No Murmur Course - Vital Signs Last Recorded V/S: Last Vital Signs Temp 99.5 F 08/13/18 21:05 Pulse 112 H 08/13/18 21:15 Resp 20 08/13/18 21:15 BP 163/118 H 08/13/18 21:15 Pulse Ox 98 08/13/18 21:15 - Orders/Labs/Meds Labs: Laboratory Tests 08/13/18 08/13/18 Range/Units 21:53 21:53 WBC 19.5 H (4.5-11.0) K/uL RBC 5.50 (3.30-5.50) M/uL Hgb 15.2 H (12.0-15.0) g/dL Hct 45.0 (36.0-48.0) % MCV 82 (80-98) fL MCH 28 (27-31) pg MCHC 34 (32-36) % Plt Count 184 (150-400) K/uL Neut % (Auto) 66 (36-66) % Lymph % (Auto) 21 L (24-44) % [place] % (Auto) 11 H (2-6) % Eos % (Auto) 2 (2-4) % Baso % (Auto) 1 (0-1) % Sodium 138 L (140-148) mmol/L Potassium 3.4 L (3.6-5.2) mmol/L Chloride 100 (100-108) mmol/L Carbon Dioxide 27 (21-32) mmol/L Anion Gap 14.4 H (5.0-14.0) mmol/L BUN 9 (7-18) mg/dL Creatinine 0.7 (0.6-1.0) mg/dL Est Cr Clr Drug Dosing 116.39 mL/min Estimated GFR (MDRD) > 60 (>60) Glucose 120 H (74-106) mg/dL Calcium 9.5 (8.5-10.1) mg/dL Magnesium 1.8 (1.8-2.4) mg/dL Total Bilirubin 0.2 (0.2-1.0) mg/dL AST 20 (15-37) U/L ALT 56 D (12-78) U/L Alkaline Phosphatase 76 (46-116) U/L Total Protein 7.5 (6.4-8.2) g/dL Albumin 3.6 (3.4-5.0) g/dL Globulin 3.9 H (2.3-3.5) g/dL Albumin/Globulin Ratio 0.9 L (1.2-2.2) Departure - Departure Time of Disposition: 22:45 Disposition: Home, Self-Care 01 Condition: Fair Clinical Impression: Medication side effect - Discharge Information Referrals: Lexie Venegas PA [Primary Care Provider] - Forms: ED Department Discharge Additional Instructions: Keep your regular follow-up appointments with your primary care provider, call or return to the emergency department with worsening of symptoms - Assessment/Plan Plan: Assessment Acuity = acute Site and laterality = nausea, lightheadedness Etiology = probably related to recent starting of medication of Abilify Manifestations = none Location of injury = Home Lab values = WBC elevated 19.5 consistent with the leukocytosis however review of prior records show that her WBCs range from 16-20, CMP and magnesium were within normal limits Plan I did review the lab work with her and talked her about side effects of medication she feels the Abilify is working for her she would like to continue with this medication and is willing to put up with the side effects with the hopes that they will improve keep your regular follow-up appointment with your primary care provider This note was dictated using [employer] voice recognition software please call with any questions on syntax or grammar.
== END 2018-08-13 23:01 | disposition home or self-care (01) ==
LOC: JP.ED 20:02
DX: R42 Dizziness and giddiness (principal); R11.2 Nausea with vomiting, unspecified; T43.595A Adverse effect of other antipsychotics and neuroleptics, initial encounter; F17.210 Nicotine dependence, cigarettes, uncomplicated; F41.9 Anxiety disorder, unspecified; F32.9 Major depressive disorder, single episode, unspecified; E11.9 Type 2 diabetes mellitus without complications; Z79.899 Other long term (current) drug therapy; Z88.0 Allergy status to penicillin; Z79.01 Long term (current) use of anticoagulants
CPT/HCPCS: 36415; 80053; 83735; 85025; 99283

== ENCOUNTER 2018-09-20 06:12 | Day surgery (SDC) | payer MEDICAID ==
[2018-09-20] MEDS ORDERED: Bupivacaine 0.5% 50 ML MDV ONE (06:32)
[2018-09-20] MEDS ORDERED: Lidocaine 1% with EPINEPHrine 1:100,000 50 ML MDV ONE (06:33)
[2018-09-20] MEDS ORDERED: Sodium Chloride 0.9% 1,000 ML IV SCH (07:00)
[2018-09-20] MEDS ORDERED: Midazolam 1 MG/ML 2 ML SDV ONE ×2 (07:26→08:05)
[2018-09-20] MEDS ORDERED: Propofol 200 MG/20 ML SDV ONE ×3 (07:26→08:24)
[2018-09-20] MEDS ORDERED: fentaNYL 100 MCG/2 ML SDV ONE ×3 (07:26→08:20)
[2018-09-20] MEDS ORDERED: Clindamycin Phosphate 900 MG in Sodium Chloride 0.9% 100 ML IV ONE (08:00)
[2018-09-20] MEDS ORDERED: Lidocaine 1% 2 ML ONE (08:01)
[2018-09-20] MEDS ORDERED: Acetaminophen/HYDROcodone 325-10 MG Tab PO PRN ×2 (09:33→10:30)
[2018-09-20 10:55] VITALS: BP 109/58; PULSE 80
--- NOTE | 2018-09-20 13:12 | OR ---
DATE OF PROCEDURE: 09/20/2018 SURGEON: Romeo Asencio MD PROCEDURES: 1. Excision of right abdominal mass, consistent with lipoma. 2. Excision of midline mass, consistent with lipoma. COMPLICATION: None. PATIENT INFORMATION COORDINATOR: None. ANESTHESIA: MAC/local. RISKS: Risks, benefits, alternatives, and limitations including, but not limited to infection, bleeding, seroma, and chronic wound formation were explained to the patient, who wished to proceed. PROCEDURE IN DETAIL: The patient was placed in supine position. The midline lesion was addressed first. A 1.5-cm incision was made and it was carried down with electrocautery within the subcutaneous fat. This mass was excised using electrocautery. This was then packed for 1 minute, reinspected, and no evidence of bleeding was noted. Irrigated and closed with 3-0 Vicryl and 4-0 Prolene in interrupted running fashion. The right lesion was addressed in same manner, same fashion, same technique, in the same sequence, and using the same equipment, except this excision size was approximately 5 cm. Both of these were in the subcutaneous fat, consistent with lipoma. The midline one was approximately 2 cm in size and the right one was approximately 4 cm in size. The patient tolerated the procedure well. Romeo Asencio MD /[id number]
== END 2018-09-20 11:15 | disposition home or self-care (01) ==
LOC: JP.SDS 06:12
PROVIDERS: ATTEND Surgery
DX: D17.1 Benign lipomatous neoplasm of skin and subcutaneous tissue of trunk (principal); E11.9 Type 2 diabetes mellitus without complications; J44.9 Chronic obstructive pulmonary disease, unspecified; F17.210 Nicotine dependence, cigarettes, uncomplicated; F41.9 Anxiety disorder, unspecified; F32.9 Major depressive disorder, single episode, unspecified; F43.10 Post-traumatic stress disorder, unspecified; K21.9 Gastro-esophageal reflux disease without esophagitis; D68.51 Activated protein C resistance; E66.9 Obesity, unspecified; Z68.42 Body mass index [BMI] 45.0-49.9, adult; Z88.0 Allergy status to penicillin; Z88.5 Allergy status to narcotic agent; Z79.51 Long term (current) use of inhaled steroids; Z79.899 Other long term (current) drug therapy
CPT/HCPCS: 22902; 22903; A9270; J2001; J2250; J2704; J3010; J3490; J7030; 88304

== ENCOUNTER 2018-09-22 15:48 | Emergency (ER) | payer MEDICAID ==
[2018-09-22 16:10] VITALS: BP 144/71; PULSE 100
--- NOTE | 2018-09-22 16:36 | EDM.PDOC ---
ED HPI GENERAL MEDICAL PROBLEM - General Chief Complaint: Wound Recheck Stated Complaint: INCISION IS DRAINING Time Seen by Provider: 09/22/18 16:30 Source of Information: Reports: Patient History Limitations: Reports: No Limitations - History of Present Illness INITIAL COMMENTS - FREE TEXT/NARRATIVE: pt had 2 lipomas removed from the abdoman. Pt is having some serosanguos drainage from the wound. Pt also notes sig redness around the 2 wounds. These were removed several days ago by Dr asencio. Onset: Today, Other ( the drainage started today) Duration: Hour(s): Location: Reports: Abdomen Associated Symptoms: Reports: No Other Symptoms - Related Data Allergies Allergy/AdvReac Type Severity Reaction Status Date / Time Penicillins Allergy Severe Anaphylactic Verified 09/22/18 16:02 Shock oxycodone AdvReac Nausea and Verified 09/22/18 16:02 Vomiting Home Meds: Home Meds Eszopiclone [Lunesta] 3 mg PO BEDTIME 09/26/16 [History] Albuterol Sulfate 2 puff INH Q4H PRN 11/02/16 [History] Fluticasone/Salmeterol [Advair 250-50 Diskus] 1 puff IH BID 12/31/16 [History] Cholecalciferol (Vitamin D3) [Vitamin D3] 5,000 unit PO DAILY 07/15/17 [History] hydrOXYzine pamoate [Hydroxyzine Pamoate] 50 mg PO TID 07/15/17 [History] DULoxetine [Cymbalta] 120 mg PO DAILY 03/16/18 [History] *Magnesium 70 mg PO BID 08/13/18 [History] Amphetamine/Dextroamphetamine [Adderall] 10 mg PO DAILY 08/13/18 [History] Amphetamine/Dextroamphetamine [Adderall] 30 mg PO DAILY 08/13/18 [History] Omeprazole 20 mg PO BEDTIME 08/13/18 [History] Acetaminophen 500 mg PO Q6HR PRN 09/16/18 [History] Docusate Sodium 100 mg PO DAILY 09/16/18 [History] EPINEPHrine [Epipen 2-Domingo] 0.3 ml IM ASDIRECTED PRN 09/16/18 [History] Gabapentin [Neurontin] 100 mg PO DAILY PRN 09/16/18 [History] Ibuprofen 400 mg PO Q6HR PRN 09/16/18 [History] Ipratropium/Albuterol Sulfate [Iprat-Albut 0.5-3(2.5) mg/3 ml] 3 ml INH Q4HR PRN 09/16/18 [History] Polyethylene Glycol 3350 [MiraLAX] 1 pkt PO DAILY PRN 09/16/18 [History] Sennosides/Docusate Sodium [Senokot-S Tablet] 2 tab PO BID PRN 09/16/18 [History ] Lurasidone HCl [Latuda] 40 mg PO DAILY 09/20/18 [History] Past Medical History HEENT History: Reports: Impaired Vision Cardiovascular History: Reports: Blood Clots/VTE/DVT Respiratory History: Reports: Asthma, PE Other Respiratory History: pulmonary embolism 10 yrs ago Gastrointestinal History: Reports: Diverticulosis, GERD Musculoskeletal History: Reports: Fracture Neurological History: Reports: Concussion, Migraines Other Neuro History: degenerational discs Psychiatric History: Reports: ADHD, Anxiety, Depression, Psych Hospitalization(s ), PTSD, Suicide Attempt Other Psychiatric History: Pt is currently seeing a mental health counselor at [facility] in [place] Endocrine/Metabolic History: Reports: Obesity/BMI 30+ Hematologic History: Reports: Anticoagulation Therapy, Blood Transfusion(s), Other (See Below) Other Hematologic History: factor V leiden Dermatologic History: Reports: Cellulitis - Infectious Disease History Infectious Disease History: Reports: Chicken Pox - Past Surgical History Head Surgeries/Procedures: Reports: None HEENT Surgical History: Reports: Tonsillectomy Cardiovascular Surgical History: Reports: None Respiratory Surgical History: Reports: Other (See Below) Other Respiratory Surgeries/Procedures: chest tube GI Surgical History: Reports: Cholecystectomy, Colonoscopy Endocrine Surgical History: Reports: None Neurological Surgical History: Reports: None, Other (See Below) Musculoskeletal Surgical History: Reports: None Dermatological Surgical History: Reports: None Social & Family History - Family History Family Medical History: Noncontributory - Tobacco Use Smoking Status *Q: Current Every Day Smoker Years of Tobacco use: 16 Packs/Tins Daily: 0.5 - Caffeine Use Caffeine Use: Reports: Energy Drinks - Recreational Drug Use Recreational Drug Use: Yes Recreational Drug Type: Reports: Marijuana/Hashish Recreational Drug Use Frequency: Not Used In Over 1 Month ED ROS GENERAL - Review of Systems Review Of Systems: See Below Constitutional: Reports: No Symptoms HEENT: Reports: No Symptoms Respiratory: Reports: No Symptoms Cardiovascular: Reports: No Symptoms Endocrine: Reports: No Symptoms GI/Abdominal: Reports: Other ( redness around the abdomanal wounds with serosanguos draiage. ) ED EXAM, SKIN/RASH Exam: See Below Text/Narrative:: pt arrived with redness around the wounds and some seroganous drainage present. Exam Limited By: No Limitations General Appearance: Alert, Anxious, Moderate Distress Ears: Normal TMs Nose: Normal Inspection Throat/Mouth: Normal Inspection Head: Atraumatic Neck: Normal Inspection GI/Abdominal: Other ( 2 wounds were present on the abdoman. she had serosanguos drainge were coming from the site, These were stitched with a running stitch. ) (Female) Exam: Deferred Rectal (Female) Exam: Deferred Course - Vital Signs Last Recorded V/S: Last Vital Signs Temp 36.6 C 09/22/18 16:10 Pulse 100 09/22/18 16:10 Resp 16 09/22/18 16:10 BP 144/71 H 09/22/18 16:10 Pulse Ox 97 09/22/18 16:10 - Re-Assessments/Exams Free Text/Narrative Re-Assessment/Exam: 09/22/18 16:36 wound was cultured. Departure - Departure Time of Disposition: 16:36 Disposition: Home, Self-Care 01 Condition: Fair Clinical Impression: Wound cellulitis - Discharge Information Referrals: Lexie Venegas PA [Primary Care Provider] - Care Plan Goals: rtc if the wounds look more swollen, bactrim ds 1 tab bid for 10 days, recheck wounds with Dr Asencio on Wednesday.
== END 2018-09-22 16:47 | disposition home or self-care (01) ==
LOC: JP.ED 15:48
DX: L76.82 Other postprocedural complications of skin and subcutaneous tissue (principal); L03.311 Cellulitis of abdominal wall; K21.9 Gastro-esophageal reflux disease without esophagitis; E66.9 Obesity, unspecified; F17.210 Nicotine dependence, cigarettes, uncomplicated; Z88.0 Allergy status to penicillin; Z88.6 Allergy status to analgesic agent; Z79.899 Other long term (current) drug therapy; Z86.718 Personal history of other venous thrombosis and embolism; Z98.890 Other specified postprocedural states; Z90.49 Acquired absence of other specified parts of digestive tract
CPT/HCPCS: 87070; 87077; 87186; 87205; 99283

== ENCOUNTER 2018-09-24 16:42 | Emergency (ER) | payer MEDICAID ==
[2018-09-24 17:20] VITALS: BP 152/75; PULSE 97
--- NOTE | 2018-09-24 17:59 | EDM.PDOC ---
ED HPI GENERAL MEDICAL PROBLEM - General Chief Complaint: Skin Complaint Stated Complaint: SURGICAL INCISION INFECTED Time Seen by Provider: 09/24/18 17:53 Source of Information: Reports: Patient History Limitations: Reports: No Limitations - History of Present Illness INITIAL COMMENTS - FREE TEXT/NARRATIVE: states she had a lipoma removed recently, was seen in ER and dx with cellulitis ; she was placed on Bactrim and states that it isn't improving. No fever. She states she just doesn't feel well. Mild nausea; is drinking. Onset: Gradual Location: Reports: Abdomen Quality: Reports: Throbbing Severity: Moderate Improves with: Reports: None Worsens with: Reports: None Lower Abdomen Pain Score (Numeric/FACES): 7 - Related Data Allergies Allergy/AdvReac Type Severity Reaction Status Date / Time Penicillins Allergy Severe Anaphylactic Verified 09/22/18 16:02 Shock oxycodone AdvReac Nausea and Verified 09/22/18 16:02 Vomiting Home Meds: Home Meds Eszopiclone [Lunesta] 3 mg PO BEDTIME 09/26/16 [History] Albuterol Sulfate 2 puff INH Q4H PRN 11/02/16 [History] Fluticasone/Salmeterol [Advair 250-50 Diskus] 1 puff IH BID 12/31/16 [History] Cholecalciferol (Vitamin D3) [Vitamin D3] 5,000 unit PO DAILY 07/15/17 [History] hydrOXYzine pamoate [Hydroxyzine Pamoate] 50 mg PO TID 07/15/17 [History] DULoxetine [Cymbalta] 120 mg PO DAILY 03/16/18 [History] *Magnesium 70 mg PO BID 08/13/18 [History] Amphetamine/Dextroamphetamine [Adderall] 10 mg PO DAILY 08/13/18 [History] Amphetamine/Dextroamphetamine [Adderall] 30 mg PO DAILY 08/13/18 [History] Omeprazole 20 mg PO BEDTIME 08/13/18 [History] Acetaminophen 500 mg PO Q6HR PRN 09/16/18 [History] Docusate Sodium 100 mg PO DAILY 09/16/18 [History] EPINEPHrine [Epipen 2-Domingo] 0.3 ml IM ASDIRECTED PRN 09/16/18 [History] Gabapentin [Neurontin] 100 mg PO DAILY PRN 09/16/18 [History] Ibuprofen 400 mg PO Q6HR PRN 09/16/18 [History] Ipratropium/Albuterol Sulfate [Iprat-Albut 0.5-3(2.5) mg/3 ml] 3 ml INH Q4HR PRN 09/16/18 [History] Polyethylene Glycol 3350 [MiraLAX] 1 pkt PO DAILY PRN 09/16/18 [History] Sennosides/Docusate Sodium [Senokot-S Tablet] 2 tab PO BID PRN 09/16/18 [History ] Lurasidone HCl [Latuda] 40 mg PO DAILY 09/20/18 [History] Doxycycline [Vibramycin] 100 mg PO BID 7 Days #14 cap 09/24/18 [Rx] Past Medical History HEENT History: Reports: Impaired Vision Cardiovascular History: Reports: Blood Clots/VTE/DVT Respiratory History: Reports: Asthma, PE Other Respiratory History: pulmonary embolism 10 yrs ago Gastrointestinal History: Reports: Diverticulosis, GERD Musculoskeletal History: Reports: Fracture Neurological History: Reports: Concussion, Migraines Other Neuro History: degenerational discs Psychiatric History: Reports: ADHD, Anxiety, Depression, Psych Hospitalization(s ), PTSD, Suicide Attempt Other Psychiatric History: Pt is currently seeing a mental health counselor at [facility] in [place] Endocrine/Metabolic History: Reports: Obesity/BMI 30+ Hematologic History: Reports: Anticoagulation Therapy, Blood Transfusion(s), Other (See Below) Other Hematologic History: factor V leiden Dermatologic History: Reports: Cellulitis - Infectious Disease History Infectious Disease History: Reports: Chicken Pox - Past Surgical History Head Surgeries/Procedures: Reports: None HEENT Surgical History: Reports: Tonsillectomy Cardiovascular Surgical History: Reports: None Respiratory Surgical History: Reports: Other (See Below) Other Respiratory Surgeries/Procedures: chest tube GI Surgical History: Reports: Cholecystectomy, Colonoscopy, Other (See Below) Other GI Surgeries/Procedures: recent lypoma removed from abdomen x2 Endocrine Surgical History: Reports: None Neurological Surgical History: Reports: None, Other (See Below) Musculoskeletal Surgical History: Reports: None Dermatological Surgical History: Reports: None Social & Family History - Family History Family Medical History: Noncontributory - Tobacco Use Smoking Status *Q: Current Every Day Smoker Years of Tobacco use: 16 Packs/Tins Daily: 0.2 Used Tobacco, but Quit: No Second Hand Smoke Exposure: Yes - Caffeine Use Caffeine Use: Reports: Coffee, Energy Drinks - Alcohol Use Days Per Week of Alcohol Use: 0 - Recreational Drug Use Recreational Drug Use: Yes Recreational Drug Type: Reports: Marijuana/Hashish Recreational Drug Use Frequency: Socially ED ROS GENERAL - Review of Systems Review Of Systems: See Below Constitutional: Reports: Decreased Appetite, Other (body aches) Respiratory: Reports: No Symptoms Cardiovascular: Reports: No Symptoms GI/Abdominal: Reports: No Symptoms Musculoskeletal: Reports: No Symptoms Skin: Reports: Erythema, Other (incision sites are red, warm, mild discharge) ED EXAM, SKIN/RASH Exam: See Below Exam Limited By: No Limitations General Appearance: Alert, WD/WN, No Apparent Distress Head: Atraumatic, Normocephalic Neck: Normal Inspection, Supple, Non-Tender, Full Range of Motion Respiratory/Chest: Lungs Clear, Normal Breath Sounds Cardiovascular: Regular Rate, Rhythm GI/Abdominal: Normal Bowel Sounds, Soft, Other (obese) Extremities: Normal Inspection, Normal Range of Motion, Non-Tender Neurological: Alert, Oriented, CN II-XII Intact Psychiatric: Normal Affect, Normal Mood Skin: Wound/Incision (red, warm with discharge to both incision sites on the abdomen, one right mid and one lower more central.) Course - Vital Signs Last Recorded V/S: Last Vital Signs Temp 98.4 F 09/24/18 17:37 Pulse 97 09/24/18 17:37 Resp 17 09/24/18 17:37 BP 152/75 H 09/24/18 17:37 Pulse Ox 100 09/24/18 17:37 - Orders/Labs/Meds Labs: Laboratory Tests 09/24/18 09/24/18 Range/Units 18:07 18:07 WBC 15.2 H (4.5-11.0) K/uL RBC 4.91 (3.30-5.50) M/uL Hgb 13.5 (12.0-15.0) g/dL Hct 41.5 (36.0-48.0) % MCV 85 (80-98) fL MCH 28 (27-31) pg MCHC 33 (32-36) % Plt Count 177 (150-400) K/uL Neut % (Auto) 67 H (36-66) % Lymph % (Auto) 19 L (24-44) % Jack % (Auto) 10 H (2-6) % Eos % (Auto) 3 (2-4) % Baso % (Auto) 1 (0-1) % ESR 45 H (0-25) mm/hr Sodium 141 (140-148) mmol/L Potassium 3.9 (3.6-5.2) mmol/L Chloride 104 (100-108) mmol/L Carbon Dioxide 26 (21-32) mmol/L Anion Gap 11.5 (5.0-14.0) mmol/L BUN 10 (7-18) mg/dL Creatinine 0.7 (0.6-1.0) mg/dL Est Cr Clr Drug Dosing 116.39 mL/min Estimated GFR (MDRD) > 60 (>60) Glucose 127 H (74-106) mg/dL Calcium 9.2 (8.5-10.1) mg/dL Total Bilirubin 0.2 (0.2-1.0) mg/dL AST 14 L (15-37) U/L ALT 32 (12-78) U/L Alkaline Phosphatase 73 (46-116) U/L C-Reactive Protein 0.90 H (0.0-0.3) mg/dL Total Protein 7.1 (6.4-8.2) g/dL Albumin 3.2 L (3.4-5.0) g/dL Globulin 3.9 H (2.3-3.5) g/dL Albumin/Globulin Ratio 0.8 L (1.2-2.2) Meds: Medications Discontinued Medications Generic Name Dose Route Start Last Admin Trade Name Jamalq PRN Reason Stop Dose Admin Bacitracin 2 dose 09/24/18 18:43 09/24/18 18:51 Bacitracin Oint 1 Gm TOP 09/24/18 18:44 2 dose ONETIME ONE Administration Doxycycline Hyclate 100 mg 09/24/18 18:38 09/24/18 18:51 Vibramycin PO 09/24/18 18:39 100 mg ONETIME ONE Administration - Re-Assessments/Exams Free Text/Narrative Re-Assessment/Exam: 09/24/18 20:34 reviewed labs with patient; will add doxycycline to her regime; she is to FU with surgeon on Wednesday. Departure - Departure Time of Disposition: 18:42 Disposition: Home, Self-Care 01 Condition: Fair Clinical Impression: Cellulitis of abdominal wall, Cellulitis - Discharge Information *PRESCRIPTION DRUG MONITORING PROGRAM REVIEWED*: Not Applicable *COPY OF PRESCRIPTION DRUG MONITORING REPORT IN PATIENT KAYLEE: Not Applicable Prescriptions: Doxycycline [Vibramycin] 100 mg PO BID 7 Days #14 cap Instructions: Cellulitis, Adult Referrals: Lexie Venegas PA [Primary Care Provider] - Forms: ED Department Discharge Additional Instructions: Drink plenty of fluids Be sure to follow up with surgeon on Wednesday; Take the doxycyline in addition to the bactrim. Return to ER if symptoms worsen. Call with questions. Keep incision site clean and dry. - Problem List & Annotations (1) Cellulitis of abdominal wall SNOMED Code(s): 44710995 Code(s): L03.311 - CELLULITIS OF ABDOMINAL WALL Status: Acute Priority: Medium - Problem List Review Problem List Initiated/Reviewed/Updated: Yes
[2018-09-24] MEDS ORDERED: Doxycycline 100 MG Cap PO ONE (18:38)
[2018-09-24] MEDS ORDERED: Bacitracin Oint 1 GM U/D Packet TOP ONE (18:43)
== END 2018-09-24 19:23 | disposition home or self-care (01) ==
LOC: JP.ED 16:42
DX: L76.82 Other postprocedural complications of skin and subcutaneous tissue (principal); L03.311 Cellulitis of abdominal wall; K21.9 Gastro-esophageal reflux disease without esophagitis; E66.9 Obesity, unspecified; J45.909 Unspecified asthma, uncomplicated; F17.210 Nicotine dependence, cigarettes, uncomplicated; Z98.890 Other specified postprocedural states; Z90.49 Acquired absence of other specified parts of digestive tract; Z86.711 Personal history of pulmonary embolism; Z86.718 Personal history of other venous thrombosis and embolism; Z88.0 Allergy status to penicillin; Z88.6 Allergy status to analgesic agent
CPT/HCPCS: 36415; 80053; 85025; 85651; 86140; 99283; A9270

== ENCOUNTER 2018-10-16 08:08 | Emergency (ER) | payer MEDICAID ==
[2018-10-16 08:31] VITALS: BP 127/82; PULSE 99
[2018-10-16] MEDS ORDERED: Ketorolac 60 MG/2 ML SDV IM ONE (08:39)
--- NOTE | 2018-10-16 08:43 | EDM.PDOC ---
ED HPI GENERAL MEDICAL PROBLEM - General Chief Complaint: Headache Stated Complaint: HEADACHE Time Seen by Provider: 10/16/18 08:30 Source of Information: Reports: Patient History Limitations: Reports: No Limitations - History of Present Illness INITIAL COMMENTS - FREE TEXT/NARRATIVE: 33-year-old female with a chronic history of headaches, went into the clinic yesterday and received a ketorolac injection which helped her headache for the majority of the day. She tried to go to work this morning and redeveloped scotoma in her headache started becoming worse so she came in for treatment. No nausea or vomiting, moderate photophobia. No neurologic deficits or complaints. Headache is not particularly different than past headaches except it is lasting longer. Headache is located mostly "behind both temples". Duration: Day(s): (4 days) Associated Symptoms: Reports: Other (Photophobia) Headache Pain Score (Numeric/FACES): 7 - Related Data Allergies Allergy/AdvReac Type Severity Reaction Status Date / Time Penicillins Allergy Severe Anaphylactic Verified 10/16/18 08:29 Shock oxycodone AdvReac Nausea and Verified 10/16/18 08:29 Vomiting Home Meds: Home Meds Eszopiclone [Lunesta] 3 mg PO BEDTIME 09/26/16 [History] Albuterol Sulfate 2 puff INH Q4H PRN 11/02/16 [History] Fluticasone/Salmeterol [Advair 250-50 Diskus] 1 puff IH BID 12/31/16 [History] Cholecalciferol (Vitamin D3) [Vitamin D3] 5,000 unit PO DAILY 07/15/17 [History] hydrOXYzine pamoate [Hydroxyzine Pamoate] 50 mg PO TID 07/15/17 [History] DULoxetine [Cymbalta] 120 mg PO DAILY 03/16/18 [History] *Magnesium 70 mg PO BID 08/13/18 [History] Amphetamine/Dextroamphetamine [Adderall] 10 mg PO DAILY 08/13/18 [History] Amphetamine/Dextroamphetamine [Adderall] 30 mg PO DAILY 08/13/18 [History] Omeprazole 20 mg PO BEDTIME 08/13/18 [History] Acetaminophen 500 mg PO Q6HR PRN 09/16/18 [History] Docusate Sodium 100 mg PO DAILY 09/16/18 [History] EPINEPHrine [Epipen 2-Domingo] 0.3 ml IM ASDIRECTED PRN 09/16/18 [History] Gabapentin [Neurontin] 100 mg PO DAILY PRN 09/16/18 [History] Ibuprofen 400 mg PO Q6HR PRN 09/16/18 [History] Ipratropium/Albuterol Sulfate [Iprat-Albut 0.5-3(2.5) mg/3 ml] 3 ml INH Q4HR PRN 09/16/18 [History] Polyethylene Glycol 3350 [MiraLAX] 1 pkt PO DAILY PRN 09/16/18 [History] Sennosides/Docusate Sodium [Senokot-S Tablet] 2 tab PO BID PRN 09/16/18 [History ] Lurasidone HCl [Latuda] 60 mg PO DAILY 09/20/18 [History] Past Medical History HEENT History: Reports: Impaired Vision Cardiovascular History: Reports: Blood Clots/VTE/DVT Respiratory History: Reports: Asthma, PE Other Respiratory History: pulmonary embolism 10 yrs ago Gastrointestinal History: Reports: Diverticulosis, GERD Musculoskeletal History: Reports: Fracture Neurological History: Reports: Concussion, Migraines Other Neuro History: degenerational discs Psychiatric History: Reports: ADHD, Anxiety, Depression, Psych Hospitalization(s ), PTSD, Suicide Attempt Other Psychiatric History: Pt is currently seeing a mental health counselor at [facility] in [place] Endocrine/Metabolic History: Reports: Obesity/BMI 30+ Hematologic History: Reports: Anticoagulation Therapy, Blood Transfusion(s), Other (See Below) Other Hematologic History: factor V leiden Dermatologic History: Reports: Cellulitis - Infectious Disease History Infectious Disease History: Reports: Chicken Pox - Past Surgical History HEENT Surgical History: Reports: Tonsillectomy Respiratory Surgical History: Reports: Other (See Below) Other Respiratory Surgeries/Procedures: chest tube GI Surgical History: Reports: Cholecystectomy, Colonoscopy, Other (See Below) Other GI Surgeries/Procedures: recent lypoma removed from abdomen x2 Social & Family History - Family History Family Medical History: Noncontributory - Tobacco Use Smoking Status *Q: Light Tobacco Smoker Years of Tobacco use: 15 Packs/Tins Daily: 0.2 - Caffeine Use Caffeine Use: Reports: Coffee, Energy Drinks - Recreational Drug Use Recreational Drug Use: Yes Recreational Drug Type: Reports: Marijuana/Hashish Recreational Drug Use Frequency: Rarely ED ROS GENERAL - Review of Systems Review Of Systems: See Below Constitutional: Denies: Fever, Chills Respiratory: Denies: Shortness of Breath, Cough Cardiovascular: Denies: Chest Pain GI/Abdominal: Reports: Nausea. Denies: Vomiting Neurological: Reports: Headache. Denies: Confusion, Trouble Speaking, Difficulty Walking, Gait Disturbance - Physical Exam Exam: See Below Exam Limited By: No Limitations General Appearance: Alert, No Apparent Distress (Looks uncomfortable but not distressed) Eye Exam: Bilateral Eye: Normal Inspection (Experiences photophobia with exam) Head Exam: Atraumatic Respiratory/Chest: No Respiratory Distress Neuro Exam (Abbreviated): Alert, Oriented, No Motor/Sensory Deficits Psychiatric: Flat Affect Skin Exam: Warm, Dry Course - Vital Signs Last Recorded V/S: Last Vital Signs Temp 95.4 F 10/16/18 08:34 Pulse 99 10/16/18 08:34 Resp 15 10/16/18 08:34 BP 127/82 10/16/18 08:34 Pulse Ox 95 10/16/18 08:34 - Orders/Labs/Meds Meds: Medications Discontinued Medications Generic Name Dose Route Start Last Admin Trade Name Russel PRN Reason Stop Dose Admin Ketorolac Tromethamine 60 mg 10/16/18 08:39 10/16/18 08:46 Toradol IM 10/16/18 08:40 60 mg ONETIME ONE Administration - Re-Assessments/Exams Free Text/Narrative Re-Assessment/Exam: 10/16/18 08:43 Patient was given a 60 mg Toradol injection, and 10 additional doses of 10 mg oral doses to take every 6 hours for the next 2 days. She can recheck with her primary provider at the clinic if not improving satisfactorily. Departure - Departure Time of Disposition: 08:52 Disposition: Home, Self-Care 01 Clinical Impression: Migraine - Discharge Information Instructions: Migraine Headache, [id number] Referrals: Lexie Venegas PA [Primary Care Provider] - Forms: ED Department Discharge Care Plan Goals: Continue any current medications and take one Toradol pill every 6 hours for the next 2 days. Recheck at the clinic with your regular doctor if not improving satisfactorily. Return sooner if worsening such as persistent vomiting or increased pain or fever.
== END 2018-10-16 08:52 | disposition home or self-care (01) ==
LOC: JP.ED 08:08
DX: G43.909 Migraine, unspecified, not intractable, without status migrainosus (principal); K21.9 Gastro-esophageal reflux disease without esophagitis; E66.9 Obesity, unspecified; F41.9 Anxiety disorder, unspecified; F32.9 Major depressive disorder, single episode, unspecified; Z79.899 Other long term (current) drug therapy; F17.210 Nicotine dependence, cigarettes, uncomplicated; Z88.0 Allergy status to penicillin; Z90.49 Acquired absence of other specified parts of digestive tract; Z86.718 Personal history of other venous thrombosis and embolism; Z86.711 Personal history of pulmonary embolism; Z98.890 Other specified postprocedural states
CPT/HCPCS: 96372; 99283; J1885

== ENCOUNTER 2018-10-18 13:43 | Emergency (ER) | payer MEDICAID ==
[2018-10-18] MEDS ORDERED: Sodium Chloride 0.9% 1,000 ML IV ONE (15:41)
[2018-10-18] MEDS ORDERED: Prochlorperazine 10 MG/2 ML SDV IVPUSH ONE (15:41)
[2018-10-18] MEDS ORDERED: Sodium Chloride 0.9% 10 ML Syringe FLUSH PRN (15:41)
[2018-10-18] MEDS ORDERED: HYDROmorphone 1 MG/ML Syringe IVPUSH ONE (15:41)
[2018-10-18 17:06] VITALS: BP 113/66; PULSE 82
--- NOTE | 2018-10-18 17:36 | EDM.PDOC ---
ED HPI GENERAL MEDICAL PROBLEM - General Chief Complaint: Headache Stated Complaint: MIGRAINE, BODY ACHES Time Seen by Provider: 10/18/18 15:35 Source of Information: Reports: Patient History Limitations: Reports: No Limitations - History of Present Illness INITIAL COMMENTS - FREE TEXT/NARRATIVE: This patient complains of hurting all over and complaints of pressure in her neck when she walks. Her arms and legs and back have been hurting for one day. She's been having a headache for 7 days. She had a lot of headaches when she was young she's had some dry heaves. Temporal Pain Score (Numeric/FACES): 9 - Related Data Allergies Allergy/AdvReac Type Severity Reaction Status Date / Time Penicillins Allergy Severe Anaphylactic Verified 10/16/18 08:29 Shock oxycodone AdvReac Nausea and Verified 10/16/18 08:29 Vomiting Home Meds: Home Meds Eszopiclone [Lunesta] 3 mg PO BEDTIME 09/26/16 [History] Albuterol Sulfate 2 puff INH Q4H PRN 11/02/16 [History] Fluticasone/Salmeterol [Advair 250-50 Diskus] 1 puff IH BID 12/31/16 [History] Cholecalciferol (Vitamin D3) [Vitamin D3] 5,000 unit PO DAILY 07/15/17 [History] hydrOXYzine pamoate [Hydroxyzine Pamoate] 50 mg PO TID 07/15/17 [History] DULoxetine [Cymbalta] 120 mg PO DAILY 03/16/18 [History] *Magnesium 70 mg PO BID 08/13/18 [History] Amphetamine/Dextroamphetamine [Adderall] 10 mg PO DAILY 08/13/18 [History] Amphetamine/Dextroamphetamine [Adderall] 30 mg PO DAILY 08/13/18 [History] Omeprazole 20 mg PO BEDTIME 08/13/18 [History] Acetaminophen 500 mg PO Q6HR PRN 09/16/18 [History] Docusate Sodium 100 mg PO DAILY 09/16/18 [History] EPINEPHrine [Epipen 2-Domingo] 0.3 ml IM ASDIRECTED PRN 09/16/18 [History] Gabapentin [Neurontin] 100 mg PO DAILY PRN 09/16/18 [History] Ibuprofen 400 mg PO Q6HR PRN 09/16/18 [History] Ipratropium/Albuterol Sulfate [Iprat-Albut 0.5-3(2.5) mg/3 ml] 3 ml INH Q4HR PRN 09/16/18 [History] Polyethylene Glycol 3350 [MiraLAX] 1 pkt PO DAILY PRN 09/16/18 [History] Sennosides/Docusate Sodium [Senokot-S Tablet] 2 tab PO BID PRN 09/16/18 [History ] Lurasidone HCl [Latuda] 60 mg PO DAILY 09/20/18 [History] Past Medical History HEENT History: Reports: Impaired Vision Cardiovascular History: Reports: Blood Clots/VTE/DVT Respiratory History: Reports: Asthma, PE Other Respiratory History: pulmonary embolism 10 yrs ago Gastrointestinal History: Reports: Diverticulosis, GERD Musculoskeletal History: Reports: Fracture Neurological History: Reports: Concussion, Migraines Other Neuro History: degenerational discs Psychiatric History: Reports: ADHD, Anxiety, Depression, Psych Hospitalization(s ), PTSD, Suicide Attempt Other Psychiatric History: Pt is currently seeing a mental health counselor at [facility] in [place] Endocrine/Metabolic History: Reports: Obesity/BMI 30+ Hematologic History: Reports: Anticoagulation Therapy, Blood Transfusion(s), Other (See Below) Other Hematologic History: factor V leiden Dermatologic History: Reports: Cellulitis - Infectious Disease History Infectious Disease History: Reports: Chicken Pox - Past Surgical History Head Surgeries/Procedures: Reports: None HEENT Surgical History: Reports: Tonsillectomy Respiratory Surgical History: Reports: Other (See Below) Other Respiratory Surgeries/Procedures: chest tube GI Surgical History: Reports: Cholecystectomy, Colonoscopy, Other (See Below) Other GI Surgeries/Procedures: recent lypoma removed from abdomen x2 Social & Family History - Family History Family Medical History: Noncontributory - Tobacco Use Smoking Status *Q: Current Every Day Smoker Years of Tobacco use: 16 Packs/Tins Daily: 0.5 - Caffeine Use Caffeine Use: Reports: None - Recreational Drug Use Recreational Drug Use: Yes Recreational Drug Type: Reports: Marijuana/Hashish Recreational Drug Use Frequency: Rarely ED ROS GENERAL - Review of Systems Review Of Systems: See Below Constitutional: Reports: Chills, Other (Body aches) HEENT: Reports: No Symptoms Respiratory: Reports: No Symptoms Cardiovascular: Reports: No Symptoms Endocrine: Reports: No Symptoms GI/Abdominal: Reports: No Symptoms : Reports: No Symptoms Musculoskeletal: Reports: Muscle Pain Skin: Reports: No Symptoms Neurological: Reports: Headache Psychiatric: Reports: No Symptoms Hematologic/Lymphatic: Reports: No Symptoms Immunologic: Reports: No Symptoms - Physical Exam Exam: See Below Exam Limited By: No Limitations General Appearance: Alert, Mild Distress, Obese Eye Exam: Bilateral Eye: EOMI, PERRL Throat/Mouth: Normal Inspection, Normal Oropharynx Head Exam: Atraumatic Neck: Normal Inspection Respiratory/Chest: No Respiratory Distress, Lungs Clear Cardiovascular: Normal Peripheral Pulses, Regular Rate, Rhythm GI/Abdominal: Normal Bowel Sounds, Soft Neuro Exam (Abbreviated): Alert, Oriented, CN II-XII Intact, Normal Cognition, No Motor/Sensory Deficits Back Exam: Normal Inspection Extremities: Normal Inspection Psychiatric: Normal Affect Skin Exam: Warm, Dry Course - Vital Signs Last Recorded V/S: Last Vital Signs Temp 35.9 C 10/18/18 14:46 Pulse 82 10/18/18 17:04 Resp 24 H 10/18/18 14:46 BP 113/66 10/18/18 17:04 Pulse Ox 97 10/18/18 17:04 - Orders/Labs/Meds Orders: Active Orders 24 hr Category Date Time Status EKG Documentation Completion [RC] ASDIRECTED Care 10/18/18 15:42 Active Sodium Chloride 0.9% [Saline Flush] Med 10/18/18 15:41 Active 10 ml FLUSH ASDIRECTED PRN Saline Lock Insert [OM.PC] Urgent Oth 10/18/18 15:41 Ordered EKG 12 Lead [EK] Urgent Ther 10/18/18 15:41 Ordered Medication Orders Sodium Chloride (Saline Flush) 10 ml FLUSH ASDIRECTED PRN PRN Reason: Keep Vein Open Last Admin: 10/18/18 17:02 Dose: 10 ml Labs: Laboratory Tests 10/18/18 10/18/18 10/18/18 Range/Units 16:00 16:00 16:22 WBC 18.5 H (4.5-11.0) K/uL RBC 4.75 (3.30-5.50) M/uL Hgb 13.6 (12.0-15.0) g/dL Hct 40.7 (36.0-48.0) % MCV 86 (80-98) fL MCH 29 (27-31) pg MCHC 33 (32-36) % Plt Count 154 (150-400) K/uL Neut % (Auto) 71 H (36-66) % Lymph % (Auto) 15 L (24-44) % [place] % (Auto) 10 H (2-6) % Eos % (Auto) 3 (2-4) % Baso % (Auto) 0 (0-1) % Sodium 142 (140-148) mmol/L Potassium 3.9 (3.6-5.2) mmol/L Chloride 105 (100-108) mmol/L Carbon Dioxide 29 (21-32) mmol/L Anion Gap 8.3 (5.0-14.0) mmol/L BUN 10 (7-18) mg/dL Creatinine 0.7 (0.6-1.0) mg/dL Est Cr Clr Drug Dosing 118.48 mL/min Estimated GFR (MDRD) > 60 (>60) Glucose 96 (74-106) mg/dL Calcium 9.1 (8.5-10.1) mg/dL Total Bilirubin 0.2 (0.2-1.0) mg/dL AST 14 L (15-37) U/L ALT 30 (12-78) U/L Alkaline Phosphatase 69 (46-116) U/L Troponin I (0.000-0.056) ng/mL Total Protein 7.0 (6.4-8.2) g/dL Albumin 3.1 L (3.4-5.0) g/dL Globulin 3.9 H (2.3-3.5) g/dL Albumin/Globulin Ratio 0.8 L (1.2-2.2) Urine Color Yellow Urine Appearance Cloudy Urine pH 8.0 (4.5-8.0) Ur Specific [place] 1.015 (1.008-1.030) Urine Protein Negative (NEGATIVE) mg/dL Urine Glucose (UA) Normal (NEGATIVE) mg/dL Urine Ketones Negative (NEGATIVE) mg/dL Urine Occult Blood Negative (NEGATIVE) Urine Nitrite Negative (NEGATIVE) Urine Bilirubin Negative (NEGATIVE) Urine Urobilinogen Normal (NORMAL) mg/dL Ur Leukocyte Esterase Trace (NEGATIVE) Urine RBC Not seen (0-5) Urine WBC 0-5 (0-5) Ur Epithelial Cells Not seen Amorphous Sediment Moderate Urine Bacteria Many Urine Mucus Not seen 10/18/18 Range/Units 16:29 WBC (4.5-11.0) K/uL RBC (3.30-5.50) M/uL Hgb (12.0-15.0) g/dL Hct (36.0-48.0) % MCV (80-98) fL MCH (27-31) pg MCHC (32-36) % Plt Count (150-400) K/uL Neut % (Auto) (36-66) % Lymph % (Auto) (24-44) % [place] % (Auto) (2-6) % Eos % (Auto) (2-4) % Baso % (Auto) (0-1) % Sodium (140-148) mmol/L Potassium (3.6-5.2) mmol/L Chloride (100-108) mmol/L Carbon Dioxide (21-32) mmol/L Anion Gap (5.0-14.0) mmol/L BUN (7-18) mg/dL Creatinine (0.6-1.0) mg/dL Est Cr Clr Drug Dosing mL/min Estimated GFR (MDRD) (>60) Glucose (74-106) mg/dL Calcium (8.5-10.1) mg/dL Total Bilirubin (0.2-1.0) mg/dL AST (15-37) U/L ALT (12-78) U/L Alkaline Phosphatase (46-116) U/L Troponin I < 0.017 (0.000-0.056) ng/mL Total Protein (6.4-8.2) g/dL Albumin (3.4-5.0) g/dL Globulin (2.3-3.5) g/dL Albumin/Globulin Ratio (1.2-2.2) Urine Color Urine Appearance Urine pH (4.5-8.0) Ur Specific [place] (1.008-1.030) Urine Protein (NEGATIVE) mg/dL Urine Glucose (UA) (NEGATIVE) mg/dL Urine Ketones (NEGATIVE) mg/dL Urine Occult Blood (NEGATIVE) Urine Nitrite (NEGATIVE) Urine Bilirubin (NEGATIVE) Urine Urobilinogen (NORMAL) mg/dL Ur Leukocyte Esterase (NEGATIVE) Urine RBC (0-5) Urine WBC (0-5) Ur Epithelial Cells Amorphous Sediment Urine Bacteria Urine Mucus Meds: Medications Generic Name Dose Route Start Last Admin Trade Name Freq PRN Reason Stop Dose Admin Sodium Chloride 10 ml 10/18/18 15:41 10/18/18 17:02 Saline Flush FLUSH 10 ml ASDIRECTED PRN Administration Keep Vein Open Discontinued Medications Generic Name Dose Route Start Last Admin Trade Name Russel PRN Reason Stop Dose Admin Hydromorphone HCl 0.5 mg 10/18/18 15:41 10/18/18 16:55 Dilaudid IVPUSH 10/18/18 15:42 0.5 mg ONETIME ONE Administration Sodium Chloride 1,000 mls @ 999 mls/hr 10/18/18 15:41 10/18/18 17:02 Normal Saline IV 10/18/18 16:41 999 mls/hr .BOLUS ONE Administration Prochlorperazine Edisylate 5 mg 10/18/18 15:41 10/18/18 16:54 Compazine IVPUSH 10/18/18 15:42 5 mg ONETIME ONE Administration - Re-Assessments/Exams Free Text/Narrative Re-Assessment/Exam: 10/18/18 18:17 This patient received 1 L IV normal saline, 5 mg Compazine and 1 mg of Dilaudid IV. After the fluid was run and she feels quite a bit better and feels ready to be discharged. Departure - Departure Time of Disposition: 18:18 Disposition: Home, Self-Care 01 Condition: Fair Clinical Impression: Headache - Discharge Information Referrals: Lexie Venegas PA [Primary Care Provider] - Additional Instructions: Go home and go straight to bed. The medication you received will continue to make you sleepy for the next 12 hours or so and can impair driving or operating machinery. Return to the ER if needed - My Orders Last 24 Hours: My Active Orders 10/18/18 15:41 Sodium Chloride 0.9% [Saline Flush] 10 ml FLUSH ASDIRECTED PRN Saline Lock Insert [OM.PC] Urgent EKG 12 Lead [EK] Urgent 10/18/18 15:42 EKG Documentation Completion [RC] ASDIRECTED - Assessment/Plan Last 24 Hours: My Active Orders 10/18/18 15:41 Sodium Chloride 0.9% [Saline Flush] 10 ml FLUSH ASDIRECTED PRN Saline Lock Insert [OM.PC] Urgent EKG 12 Lead [EK] Urgent 10/18/18 15:42 EKG Documentation Completion [RC] ASDIRECTED
== END 2018-10-18 19:01 | disposition home or self-care (01) ==
LOC: JP.ED 13:43
DX: R51 Headache (principal); J45.909 Unspecified asthma, uncomplicated; F90.9 Attention-deficit hyperactivity disorder, unspecified type; F17.210 Nicotine dependence, cigarettes, uncomplicated; Z79.01 Long term (current) use of anticoagulants; Z88.0 Allergy status to penicillin; Z88.5 Allergy status to narcotic agent; Z79.899 Other long term (current) drug therapy; Z86.718 Personal history of other venous thrombosis and embolism
CPT/HCPCS: 36415; 80053; 81001; 84484; 85025; 93005; 96361; 96374; 96375; 99284; J0780; J1170; J7030

== ENCOUNTER 2018-10-20 15:54 | Emergency (ER) | payer MEDICAID ==
[2018-10-20 16:08] VITALS: BP 165/94; PULSE 79
--- NOTE | 2018-10-20 16:47 | EDM.PDOCBH ---
ED HPI GENERAL MEDICAL PROBLEM - General Chief Complaint: Behavioral/Psych Stated Complaint: PSYCH EVAL Time Seen by Provider: 10/20/18 16:15 Source of Information: Reports: Patient, Provider History Limitations: Reports: No Limitations - History of Present Illness INITIAL COMMENTS - FREE TEXT/NARRATIVE: 33-year-old female with a long history of depression, previous suicidal ideation and attempts including a significant drug overdose earlier this year with warfarin. A five-day intensive care unit stay was needed. She is also had at least 3 different inpatient psychiatric admissions in the last year. She presented to the clinic today with a very flat affect and started talking to her primary provider that her medications were not working and that she might as well be . She did not have a specific plan at this time but she could "get one within 5 minutes". They sent her over to the emergency room for an evaluation and a 72 hour hold for inpatient evaluation and treatment. She has not been drinking, has not taken any medications other than her prescribed medicines and has not done any self injury over the past 2 weeks. She has been in the emergency room twice in the last week for a "headache" needing a note for work. I don't think she is tolerating her job well. Onset: Unknown/Unsure Associated Symptoms: Reports: Headaches Generalized Pain Score (Numeric/FACES): 8 - Related Data Allergies Allergy/AdvReac Type Severity Reaction Status Date / Time Penicillins Allergy Severe Anaphylactic Verified 10/20/18 16:11 Shock oxycodone AdvReac Nausea and Verified 10/20/18 16:11 Vomiting Home Meds: Home Meds Eszopiclone [Lunesta] 3 mg PO BEDTIME 09/26/16 [History] Albuterol Sulfate 2 puff INH Q4H PRN 11/02/16 [History] Fluticasone/Salmeterol [Advair 250-50 Diskus] 1 puff IH BID 12/31/16 [History] Cholecalciferol (Vitamin D3) [Vitamin D3] 5,000 unit PO DAILY 07/15/17 [History] hydrOXYzine pamoate [Hydroxyzine Pamoate] 50 mg PO TID 07/15/17 [History] DULoxetine [Cymbalta] 120 mg PO DAILY 03/16/18 [History] *Magnesium 70 mg PO BID 08/13/18 [History] Amphetamine/Dextroamphetamine [Adderall] 10 mg PO DAILY 08/13/18 [History] Amphetamine/Dextroamphetamine [Adderall] 30 mg PO DAILY 08/13/18 [History] Omeprazole 20 mg PO BEDTIME 08/13/18 [History] Acetaminophen 500 mg PO Q6HR PRN 09/16/18 [History] Docusate Sodium 100 mg PO DAILY 09/16/18 [History] EPINEPHrine [Epipen 2-Domingo] 0.3 ml IM ASDIRECTED PRN 09/16/18 [History] Gabapentin [Neurontin] 100 mg PO DAILY PRN 09/16/18 [History] Ibuprofen 400 mg PO Q6HR PRN 09/16/18 [History] Ipratropium/Albuterol Sulfate [Iprat-Albut 0.5-3(2.5) mg/3 ml] 3 ml INH Q4HR PRN 09/16/18 [History] Polyethylene Glycol 3350 [MiraLAX] 1 pkt PO DAILY PRN 09/16/18 [History] Sennosides/Docusate Sodium [Senokot-S Tablet] 2 tab PO BID PRN 09/16/18 [History ] Lurasidone HCl [Latuda] 60 mg PO DAILY 09/20/18 [History] Past Medical History HEENT History: Reports: Impaired Vision Cardiovascular History: Reports: Blood Clots/VTE/DVT Respiratory History: Reports: Asthma, PE Other Respiratory History: pulmonary embolism 10 yrs ago Gastrointestinal History: Reports: Diverticulosis, GERD Musculoskeletal History: Reports: Fracture Neurological History: Reports: Concussion, Migraines Other Neuro History: degenerational discs Psychiatric History: Reports: ADHD, Anxiety, Depression, Psych Hospitalization(s ), PTSD, Suicide Attempt Other Psychiatric History: Pt is currently seeing a mental health counselor at [facility] in [place] Endocrine/Metabolic History: Reports: Obesity/BMI 30+ Hematologic History: Reports: Anticoagulation Therapy, Blood Transfusion(s), Other (See Below) Other Hematologic History: factor V leiden Dermatologic History: Reports: Cellulitis - Infectious Disease History Infectious Disease History: Reports: Chicken Pox - Past Surgical History Head Surgeries/Procedures: Reports: None HEENT Surgical History: Reports: Tonsillectomy Respiratory Surgical History: Reports: Other (See Below) Other Respiratory Surgeries/Procedures: chest tube GI Surgical History: Reports: Cholecystectomy, Colonoscopy, Other (See Below) Other GI Surgeries/Procedures: recent lypoma removed from abdomen x2 Social & Family History - Family History Family Medical History: Noncontributory - Tobacco Use Smoking Status *Q: Current Every Day Smoker Years of Tobacco use: 15 Packs/Tins Daily: 0.2 Used Tobacco, but Quit: No Second Hand Smoke Exposure: Yes - Caffeine Use Caffeine Use: Reports: Coffee, Energy Drinks - Recreational Drug Use Recreational Drug Use: Yes Drug Use in Last 12 Months: Yes Recreational Drug Type: Reports: Marijuana/Hashish Recreational Drug Use Frequency: Monthly ED ROS GENERAL - Review of Systems Review Of Systems: See Below Constitutional: Denies: Fever, Chills, Malaise HEENT: Reports: No Symptoms Respiratory: Denies: Shortness of Breath, Cough Cardiovascular: Denies: Chest Pain GI/Abdominal: Denies: Abdominal Pain, Nausea, Vomiting Skin: Reports: No Symptoms Neurological: Reports: Headache ED EXAM, BEHAVIORAL HEALTH - Physical Exam Exam: See Below Exam Limited By: No Limitations General Appearance: Alert, No Apparent Distress Eye Exam: Bilateral Eye: Normal Inspection Head: Atraumatic Respiratory/Chest: No Respiratory Distress, Lungs Clear Cardiovascular: Regular Rate, Rhythm Neurological: Alert, Oriented x 3 Psychiatric: Depressed Mood, Flat Affect Skin Exam: Warm, Dry COURSE, BEHAVIORAL HEALTH COMP - Course Vital Signs: Last Vital Signs Temp 96.4 F 10/20/18 16:21 Pulse 79 10/20/18 16:21 Resp 16 10/20/18 16:21 BP 165/94 H 10/20/18 16:21 Pulse Ox 92 L 10/20/18 16:21 Orders, Labs, Meds: Laboratory Tests 10/20/18 10/20/18 10/20/18 Range/Units 16:47 16:55 16:55 WBC 17.3 H (4.5-11.0) K/uL RBC 5.07 (3.30-5.50) M/uL Hgb 13.8 (12.0-15.0) g/dL Hct 42.6 (36.0-48.0) % MCV 84 (80-98) fL MCH 27 (27-31) pg MCHC 32 (32-36) % Plt Count 161 (150-400) K/uL Neut % (Auto) 73 H (36-66) % Lymph % (Auto) 15 L (24-44) % [place] % (Auto) 9 H (2-6) % Eos % (Auto) 4 (2-4) % Baso % (Auto) 0 (0-1) % Sodium 141 (140-148) mmol/L Potassium 3.9 (3.6-5.2) mmol/L Chloride 103 (100-108) mmol/L Carbon Dioxide 27 (21-32) mmol/L Anion Gap 10.8 (5.0-14.0) mmol/L BUN 11 (7-18) mg/dL Creatinine 0.7 (0.6-1.0) mg/dL Est Cr Clr Drug Dosing 118.48 mL/min Estimated GFR (MDRD) > 60 (>60) Glucose 108 H (74-106) mg/dL Calcium 9.2 (8.5-10.1) mg/dL Total Bilirubin 0.3 (0.2-1.0) mg/dL AST 16 (15-37) U/L ALT 32 (12-78) U/L Alkaline Phosphatase 69 (46-116) U/L Total Protein 7.8 (6.4-8.2) g/dL Albumin 3.4 (3.4-5.0) g/dL Globulin 4.4 H (2.3-3.5) g/dL Albumin/Globulin Ratio 0.8 L (1.2-2.2) Urine Opiates Screen Negative (NEGATIVE) Ur Oxycodone Screen Negative (NEGATIVE) Urine Methadone Screen Negative (NEGATIVE) Ur Propoxyphene Screen Negative (NEGATIVE) Acetaminophen < 2.0 L (10.0-30.0) ug/mL Ur Barbiturates Screen Negative (NEGATIVE) Ur Tricyclics Screen Negative (NEGATIVE) Ur Phencyclidine Scrn Negative (NEGATIVE) Ur Amphetamine Screen Negative (NEGATIVE) U Methamphetamines Scrn Negative (NEGATIVE) Urine MDMA Screen Negative (NEGATIVE) U Benzodiazepines Scrn Negative (NEGATIVE) U Cocaine Metab Screen Negative (NEGATIVE) U Marijuana (THC) Screen Negative (NEGATIVE) Ethyl Alcohol mg/dL 10/20/18 Range/Units 16:55 WBC (4.5-11.0) K/uL RBC (3.30-5.50) M/uL Hgb (12.0-15.0) g/dL Hct (36.0-48.0) % MCV (80-98) fL MCH (27-31) pg MCHC (32-36) % Plt Count (150-400) K/uL Neut % (Auto) (36-66) % Lymph % (Auto) (24-44) % [place] % (Auto) (2-6) % Eos % (Auto) (2-4) % Baso % (Auto) (0-1) % Sodium (140-148) mmol/L Potassium (3.6-5.2) mmol/L Chloride (100-108) mmol/L Carbon Dioxide (21-32) mmol/L Anion Gap (5.0-14.0) mmol/L BUN (7-18) mg/dL Creatinine (0.6-1.0) mg/dL Est Cr Clr Drug Dosing mL/min Estimated GFR (MDRD) (>60) Glucose (74-106) mg/dL Calcium (8.5-10.1) mg/dL Total Bilirubin (0.2-1.0) mg/dL AST (15-37) U/L ALT (12-78) U/L Alkaline Phosphatase (46-116) U/L Total Protein (6.4-8.2) g/dL Albumin (3.4-5.0) g/dL Globulin (2.3-3.5) g/dL Albumin/Globulin Ratio (1.2-2.2) Urine Opiates Screen (NEGATIVE) Ur Oxycodone Screen (NEGATIVE) Urine Methadone Screen (NEGATIVE) Ur Propoxyphene Screen (NEGATIVE) Acetaminophen (10.0-30.0) ug/mL Ur Barbiturates Screen (NEGATIVE) Ur Tricyclics Screen (NEGATIVE) Ur Phencyclidine Scrn (NEGATIVE) Ur Amphetamine Screen (NEGATIVE) U Methamphetamines Scrn (NEGATIVE) Urine MDMA Screen (NEGATIVE) U Benzodiazepines Scrn (NEGATIVE) U Cocaine Metab Screen (NEGATIVE) U Marijuana (THC) Screen (NEGATIVE) Ethyl Alcohol < 3 mg/dL Re-Assessment/Re-Exam: UA was obtained for urine drug screen, CBC CMP and acetaminophen levels also obtained. Hopefully we can get her admitted as an inpatient for stabilization. Urine drug screen was negative, labs were normal. Acetaminophen and alcohol levels were 0. Patient became concerned about the care of her dog, he was home, needed to be fed and she was unable to get a hold of anybody to help her out. She has no specific plans to hurt herself tonight, and was allowed to go home and take care of her dog and she promised to return if she redevelops ideation of self injury or any plan. She does have a recheck tomorrow morning with her psychiatric provider and will return to the emergency room if his felt she could benefit from inpatient treatment after her visit tomorrow. She was discharged with 10 additional doses of oral Toradol for her headache. Departure - Departure Time of Disposition: 18:05 Disposition: Home, Self-Care 01 Clinical Impression: Depressive disorder, Tension headache - Discharge Information Instructions: Living With Depression Referrals: Lexie Venegas PA [Primary Care Provider] - Forms: ED Department Discharge Care Plan Goals: Continue your current medications, take care of your dog, recheck tomorrow as scheduled. Return sooner if you develop intentions of hurting herself or you feel you're unsafe.
[2018-10-20 17:25] LABS: ACETAMINOPHEN < 2.0 ug/mL (10.0-30.0)
== END 2018-10-20 18:05 | disposition home or self-care (01) ==
LOC: JP.ED 15:54
DX: F32.9 Major depressive disorder, single episode, unspecified (principal); G44.209 Tension-type headache, unspecified, not intractable; J45.909 Unspecified asthma, uncomplicated; K21.9 Gastro-esophageal reflux disease without esophagitis; F90.9 Attention-deficit hyperactivity disorder, unspecified type; F17.210 Nicotine dependence, cigarettes, uncomplicated; Z88.0 Allergy status to penicillin; Z88.5 Allergy status to narcotic agent; Z79.899 Other long term (current) drug therapy; Z86.718 Personal history of other venous thrombosis and embolism; Z79.01 Long term (current) use of anticoagulants
CPT/HCPCS: 36415; 80053; 80305; 85025; 99284; G0480

== ENCOUNTER 2019-01-12 22:06 | Emergency (ER) | payer MEDICAID ==
[2019-01-12 22:24] VITALS: BP 137/99; PULSE 96
--- NOTE | 2019-01-12 22:53 | EDM.PDOC ---
ED HPI GENERAL MEDICAL PROBLEM - General Chief Complaint: ENT Problem Stated Complaint: RIGHT EAR PAIN Time Seen by Provider: 01/12/19 22:40 Source of Information: Reports: Patient, Old Records, RN History Limitations: Reports: No Limitations - History of Present Illness INITIAL COMMENTS - FREE TEXT/NARRATIVE: 33 yo female is on Ofloxacin drops in her R ear for otitis externa for 2 days. No fever. Is taking ibuprofen and acetaminophen without relief. Was initially seen in the clinic for this. 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, NSAIDS, Other (see below) (Ofloxacin) Right Ear Pain Score (Numeric/FACES): 8 - Related Data Allergies Allergy/AdvReac Type Severity Reaction Status Date / Time Penicillins Allergy Severe Anaphylactic Verified 10/20/18 16:11 Shock oxycodone AdvReac Nausea and Verified 10/20/18 16:11 Vomiting Home Meds: Home Meds Eszopiclone [Lunesta] 3 mg PO BEDTIME 09/26/16 [History] Albuterol Sulfate 2 puff INH Q4H PRN 11/02/16 [History] Fluticasone/Salmeterol [Advair 250-50 Diskus] 1 puff IH BID 12/31/16 [History] Cholecalciferol (Vitamin D3) [Vitamin D3] 5,000 unit PO DAILY 07/15/17 [History] *Magnesium 70 mg PO BID 08/13/18 [History] Amphetamine/Dextroamphetamine [Adderall] 15 mg PO DAILY 08/13/18 [History] Amphetamine/Dextroamphetamine [Adderall] 30 mg PO DAILY 08/13/18 [History] Omeprazole 20 mg PO BEDTIME 08/13/18 [History] Acetaminophen 500 mg PO Q6HR PRN 09/16/18 [History] Docusate Sodium 100 mg PO DAILY 09/16/18 [History] EPINEPHrine [Epipen 2-Domingo] 0.3 ml IM ASDIRECTED PRN 09/16/18 [History] Ibuprofen 400 mg PO Q6HR PRN 09/16/18 [History] Ipratropium/Albuterol Sulfate [Iprat-Albut 0.5-3(2.5) mg/3 ml] 3 ml INH Q4HR PRN 09/16/18 [History] Polyethylene Glycol 3350 [MiraLAX] 1 pkt PO DAILY PRN 09/16/18 [History] Sennosides/Docusate Sodium [Senokot-S Tablet] 2 tab PO BID PRN 09/16/18 [History ] Brexpiprazole [Rexulti] 1 mg PO DAILY 01/12/19 [History] Past Medical History HEENT History: Reports: Impaired Vision Cardiovascular History: Reports: Blood Clots/VTE/DVT Respiratory History: Reports: Asthma, PE Other Respiratory History: pulmonary embolism 10 yrs ago Gastrointestinal History: Reports: Diverticulosis, GERD Musculoskeletal History: Reports: Fracture Neurological History: Reports: Concussion, Migraines Other Neuro History: degenerational discs Psychiatric History: Reports: ADHD, Anxiety, Depression, Psych Hospitalization(s ), PTSD, Suicide Attempt Other Psychiatric History: Pt is currently seeing a mental health counselor at in [place] Endocrine/Metabolic History: Reports: Obesity/BMI 30+ Hematologic History: Reports: Anticoagulation Therapy, Blood Transfusion(s), Other (See Below) Other Hematologic History: factor V leiden Dermatologic History: Reports: Cellulitis - Infectious Disease History Infectious Disease History: Reports: Chicken Pox - Past Surgical History Head Surgeries/Procedures: Reports: None HEENT Surgical History: Reports: Tonsillectomy Respiratory Surgical History: Reports: Other (See Below) Other Respiratory Surgeries/Procedures: chest tube GI Surgical History: Reports: Cholecystectomy, Colonoscopy, Other (See Below) Other GI Surgeries/Procedures: recent lypoma removed from abdomen x2 Social & Family History - Family History Family Medical History: Noncontributory - Tobacco Use Smoking Status *Q: Heavy Tobacco Smoker Years of Tobacco use: 16 Packs/Tins Daily: 0.5 - Caffeine Use Caffeine Use: Reports: Energy Drinks - Recreational Drug Use Recreational Drug Type: Reports: Marijuana/Hashish ED ROS ENT - Review of Systems Review Of Systems: See Below Constitutional: Reports: No Symptoms HEENT: Reports: Ear Discharge (earlier, not now), Ear Pain (right) Respiratory: Reports: No Symptoms Skin: Reports: No Symptoms Neurological: Reports: No Symptoms ED EXAM, ENT - Physical Exam Exam: See Below Exam Limited By: No Limitations General Appearance: Alert, WD/WN, No Apparent Distress, Obese Eye Exam: Bilateral Eye: Normal Inspection Ears: Normal TMs, Auricular Tenderness, Canal Swelling (slight), Other (tender over tragus.). No: Auricular Erythema, Canal Blood, Canal Discharge, Canal Material Nose: Normal Inspection, Normal Mucousa, No Blood Mouth/Throat: Normal Lips, Normal Oropharynx, Normal Teeth Head: Atraumatic, Normocephalic Course - Vital Signs Last Recorded V/S: Last Vital Signs Temp 36.4 C 01/12/19 22:27 Pulse 96 01/12/19 22: Resp 16 01/12/19 22: BP 137/99 H 01/12/19 22: Pulse Ox 98 01/12/19 22:27 Departure - Departure Time of Disposition: 22:55 Disposition: Home, Self-Care 01 Condition: Fair Clinical Impression: Otitis externa Qualifiers: Otitis externa type: other infective Chronicity: acute Laterality: right Qualified Code(s): H60.391 - Other infective otitis externa, right ear - Discharge Information *PRESCRIPTION DRUG MONITORING PROGRAM REVIEWED*: No *COPY OF PRESCRIPTION DRUG MONITORING REPORT IN PATIENT KAYLEE: No Instructions: Otitis Externa, [id number] Referrals: Lexie Venegas PA [Primary Care Provider] - Additional Instructions: Continue your current ear drops. Keep water out of the affected ear. Take [place] for pain not relieved by ibuprofen 600 mg every 6 hrs with food. Recheck in the clinic on Wednesday.
== END 2019-01-12 23:06 | disposition home or self-care (01) ==
LOC: JP.ED 22:06
DX: H60.391 Other infective otitis externa, right ear (principal); J45.909 Unspecified asthma, uncomplicated; K21.9 Gastro-esophageal reflux disease without esophagitis; F17.210 Nicotine dependence, cigarettes, uncomplicated; Z88.0 Allergy status to penicillin; Z88.5 Allergy status to narcotic agent; Z79.899 Other long term (current) drug therapy; Z86.718 Personal history of other venous thrombosis and embolism; Z86.711 Personal history of pulmonary embolism
CPT/HCPCS: 99282

== ENCOUNTER 2019-01-17 22:30 | Emergency (ER) | payer MEDICAID ==
[2019-01-17 23:04] VITALS: BP 125/106; PULSE 96
--- NOTE | 2019-01-17 23:24 | EDM.PDOC ---
ED HPI GENERAL MEDICAL PROBLEM - General Chief Complaint: Skin Complaint Stated Complaint: RASH Time Seen by Provider: 01/17/19 23:15 Source of Information: Reports: Patient, Old Records, RN History Limitations: Reports: No Limitations - History of Present Illness INITIAL COMMENTS - FREE TEXT/NARRATIVE: 33 yo female here with a rash in the groin area that she first noticed early this evening. Was recently put on doxycycline. Had a similar rash in association with taking antibiotics in the past. Is not currently on treatment for diabetes. Onset: Today Onset Date: 01/17/19 Onset Time: 19:00 Duration: Hour(s):, Constant Location: Reports: Pelvis (groin) Quality: Reports: Burning Severity: Moderate Improves with: Reports: None Worsens with: Reports: Other (? 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 (see below) (none) - Related Data Allergies Allergy/AdvReac Type Severity Reaction Status Date / Time Penicillins Allergy Severe Anaphylactic Verified 10/20/18 16:11 Shock oxycodone AdvReac Nausea and Verified 10/20/18 16:11 Vomiting Home Meds: Home Meds Eszopiclone [Lunesta] 3 mg PO BEDTIME 09/26/16 [History] Albuterol Sulfate 2 puff INH Q4H PRN 11/02/16 [History] Fluticasone/Salmeterol [Advair 250-50 Diskus] 1 puff IH BID 12/31/16 [History] Cholecalciferol (Vitamin D3) [Vitamin D3] 5,000 unit PO DAILY 07/15/17 [History] *Magnesium 70 mg PO BID 08/13/18 [History] Amphetamine/Dextroamphetamine [Adderall] 15 mg PO DAILY 08/13/18 [History] Amphetamine/Dextroamphetamine [Adderall] 30 mg PO DAILY 08/13/18 [History] Omeprazole 20 mg PO BEDTIME 08/13/18 [History] Acetaminophen 500 mg PO Q6HR PRN 09/16/18 [History] EPINEPHrine [Epipen 2-Domingo] 0.3 ml IM ASDIRECTED PRN 09/16/18 [History] Ibuprofen 400 mg PO Q6HR PRN 09/16/18 [History] Ipratropium/Albuterol Sulfate [Iprat-Albut 0.5-3(2.5) mg/3 ml] 3 ml INH Q4HR PRN 09/16/18 [History] Brexpiprazole [Rexulti] 1 mg PO DAILY 01/12/19 [History] Brexpiprazole [Rexulti] 1 mg PO DAILY 01/17/19 [History] Desvenlafaxine [Pristiq] 50 mg PO DAILY 01/17/19 [History] Doxycycline [Doxycycline Hyclate] 100 mg PO BID 01/17/19 [History] Levothyroxine 25 mcg PO ACBREAKFAST 01/17/19 [History] Montelukast [Singulair] 10 mg PO DAILY 01/17/19 [History] Past Medical History HEENT History: Reports: Impaired Vision Cardiovascular History: Reports: Blood Clots/VTE/DVT Respiratory History: Reports: Asthma, PE Other Respiratory History: pulmonary embolism 10 yrs ago with chest tube insertion Gastrointestinal History: Reports: Diverticulosis, GERD Musculoskeletal History: Reports: Fracture Neurological History: Reports: Concussion, Migraines Other Neuro History: degenerational discs Psychiatric History: Reports: ADHD, Anxiety, Depression, Psych Hospitalization(s ), PTSD, Suicide Attempt Other Psychiatric History: Pt is currently seeing a mental health counselor at [facility] in [place] Endocrine/Metabolic History: Reports: Hypothyroidism, Obesity/BMI 30+ Hematologic History: Reports: Anticoagulation Therapy, Blood Transfusion(s), Other (See Below) Other Hematologic History: factor V leiden Dermatologic History: Reports: Cellulitis - Infectious Disease History Infectious Disease History: Reports: Chicken Pox - Past Surgical History Head Surgeries/Procedures: Reports: None HEENT Surgical History: Reports: Tonsillectomy Respiratory Surgical History: Reports: Other (See Below) Other Respiratory Surgeries/Procedures: chest tube GI Surgical History: Reports: Cholecystectomy, Colonoscopy, Other (See Below) Other GI Surgeries/Procedures: recent lypoma removed from abdomen x2 Social & Family History - Family History Family Medical History: Noncontributory - Tobacco Use Smoking Status *Q: Current Every Day Smoker Years of Tobacco use: 16 Packs/Tins Daily: 0.5 - Caffeine Use Caffeine Use: Reports: Coffee, Energy Drinks - Recreational Drug Use Recreational Drug Use: Yes Recreational Drug Type: Reports: Marijuana/Hashish Recreational Drug Use Frequency: Socially ED ROS GENERAL - Review of Systems Review Of Systems: ROS reveals no pertinent complaints other than HPI. Skin: Reports: Rash (under abdominal pannus and in groin areas.) Neurological: Reports: No Symptoms ED EXAM, SKIN/RASH Exam: See Below Exam Limited By: No Limitations General Appearance: Alert, WD/WN, No Apparent Distress, Obese Skin: Warm, Dry, Erythema, Rash (fungal appearing rash in the groin R>L and under the pannus of her abdominal fold. ). No: Normal Color, No Rash Location, Skin: Abdomen (lower), Pelvis (groin areas) Characteristics: Macular, Confluent, Erythematous Associated features: Inflammation Course - Vital Signs Last Recorded V/S: Last Vital Signs Temp 36.6 C 01/17/19 22:53 Pulse 96 01/17/19 22:53 Resp 16 01/17/19 22:53 BP 125/106 H 01/17/19 22:53 Pulse Ox 95 01/17/19 22:53 - Orders/Labs/Meds Orders: Active Orders 24 hr Category Date Time Status GLUCOSE POC LAB TO COLLECT [POC] Stat Lab 01/17/19 23:19 Ordered Departure - Departure Time of Disposition: 23:30 Disposition: Home, Self-Care 01 Condition: Fair Clinical Impression: Candidal dermatitis - Discharge Information *PRESCRIPTION DRUG MONITORING PROGRAM REVIEWED*: No *COPY OF PRESCRIPTION DRUG MONITORING REPORT IN PATIENT KAYLEE: No Referrals: Lexie Venegas PA [Primary Care Provider] - Forms: ED Department Discharge Additional Instructions: Bath and dry off thoroughly twice daily. After you are thoroughly dried off apply your Nystatin powder, reapply if the area gets wet/sweaty. Recheck with your primary care provider the end of the week. - My Orders Last 24 Hours: My Active Orders 01/17/19 23:19 GLUCOSE POC LAB TO COLLECT [POC] Stat - Assessment/Plan Last 24 Hours: My Active Orders 01/17/19 23:19 GLUCOSE POC LAB TO COLLECT [POC] Stat
== END 2019-01-17 23:34 | disposition home or self-care (01) ==
LOC: JP.ED 22:30
DX: B37.2 Candidiasis of skin and nail (principal); J45.909 Unspecified asthma, uncomplicated; F41.9 Anxiety disorder, unspecified; F32.9 Major depressive disorder, single episode, unspecified; E03.9 Hypothyroidism, unspecified; K21.9 Gastro-esophageal reflux disease without esophagitis; F17.210 Nicotine dependence, cigarettes, uncomplicated; E66.9 Obesity, unspecified; Z68.42 Body mass index [BMI] 45.0-49.9, adult; Z88.0 Allergy status to penicillin; Z88.8 Allergy status to other drugs, medicaments and biological substances; Z79.01 Long term (current) use of anticoagulants; Z79.51 Long term (current) use of inhaled steroids; Z79.890 Hormone replacement therapy; Z86.718 Personal history of other venous thrombosis and embolism; Z86.711 Personal history of pulmonary embolism; Z79.899 Other long term (current) drug therapy
CPT/HCPCS: 82962; 99282

== ENCOUNTER 2019-02-21 14:43 | Emergency (ER) | payer MEDICAID ==
--- NOTE | 2019-02-21 15:36 | EDM.PDOCBH ---
ED HPI GENERAL MEDICAL PROBLEM - General Chief Complaint: Behavioral/Psych Stated Complaint: EVAL Time Seen by Provider: 02/21/19 15:25 Source of Information: Reports: Patient, Provider, RN Notes Reviewed History Limitations: Reports: No Limitations - History of Present Illness INITIAL COMMENTS - FREE TEXT/NARRATIVE: 33-year-old female presents emergency department the complaint of severe depression, she states her depression has gotten significantly worse over the last week or so she is brought in with her arms worker who helps corroborate her story. She admits to suicidal ideation with a plan. She states she would take her sleeping medications and go for a walk in the [place] and not return., Denies any other symptoms - Related Data Allergies Allergy/AdvReac Type Severity Reaction Status Date / Time Penicillins Allergy Severe Anaphylactic Verified 02/21/19 15:04 Shock oxycodone AdvReac Nausea and Verified 02/21/19 15:04 Vomiting Home Meds: Home Meds Eszopiclone [Lunesta] 3 mg PO BEDTIME 09/26/16 [History] Albuterol Sulfate 2 puff INH Q4H PRN 11/02/16 [History] Fluticasone/Salmeterol [Advair 250-50 Diskus] 1 puff IH BID 12/31/16 [History] Cholecalciferol (Vitamin D3) [Vitamin D3] 5,000 unit PO DAILY 07/15/17 [History] Amphetamine/Dextroamphetamine [Adderall] 15 mg PO DAILY 08/13/18 [History] Amphetamine/Dextroamphetamine [Adderall] 30 mg PO DAILY 08/13/18 [History] Omeprazole 20 mg PO BEDTIME 08/13/18 [History] Acetaminophen 500 mg PO Q6HR PRN 09/16/18 [History] EPINEPHrine [Epipen 2-Domingo] 0.3 ml IM ASDIRECTED PRN 09/16/18 [History] Ibuprofen 400 mg PO Q6HR PRN 09/16/18 [History] Ipratropium/Albuterol Sulfate [Iprat-Albut 0.5-3(2.5) mg/3 ml] 3 ml INH Q4HR PRN 09/16/18 [History] Desvenlafaxine [Pristiq] 100 mg PO DAILY 01/17/19 [History] Levothyroxine 25 mcg PO ACBREAKFAST 01/17/19 [History] Montelukast [Singulair] 10 mg PO DAILY 01/17/19 [History] Ergocalciferol (Vitamin D2) [Vitamin D2] 1 cap PO WEEKLY 02/21/19 [History] Past Medical History HEENT History: Reports: Impaired Vision Cardiovascular History: Reports: Blood Clots/VTE/DVT Respiratory History: Reports: Asthma, PE Other Respiratory History: pulmonary embolism 10 yrs ago with chest tube insertion Gastrointestinal History: Reports: Diverticulosis, GERD Musculoskeletal History: Reports: Fracture Neurological History: Reports: Concussion, Migraines Other Neuro History: degenerational discs Psychiatric History: Reports: ADHD, Anxiety, Depression, Psych Hospitalization(s ), PTSD, Suicide Attempt Other Psychiatric History: Pt is currently seeing a mental health counselor at [facility] in [place] Endocrine/Metabolic History: Reports: Hypothyroidism, Obesity/BMI 30+ Hematologic History: Reports: Anticoagulation Therapy, Blood Transfusion(s), Other (See Below) Other Hematologic History: factor V leiden Dermatologic History: Reports: Cellulitis - Infectious Disease History Infectious Disease History: Reports: Chicken Pox - Past Surgical History Head Surgeries/Procedures: Reports: None HEENT Surgical History: Reports: Tonsillectomy Cardiovascular Surgical History: Reports: None Respiratory Surgical History: Reports: Other (See Below) Other Respiratory Surgeries/Procedures: chest tube GI Surgical History: Reports: Cholecystectomy, Colonoscopy, Other (See Below) Other GI Surgeries/Procedures: recent lypoma removed from abdomen x2 Endocrine Surgical History: Reports: None Neurological Surgical History: Reports: None Musculoskeletal Surgical History: Reports: None Dermatological Surgical History: Reports: None Social & Family History - Family History Family Medical History: Noncontributory - Tobacco Use Smoking Status *Q: Current Every Day Smoker Years of Tobacco use: 16 Packs/Tins Daily: 0.5 - Caffeine Use Caffeine Use: Reports: Coffee, Energy Drinks, Soda - Recreational Drug Use Recreational Drug Use: Yes Drug Use in Last 12 Months: Yes Recreational Drug Type: Reports: Marijuana/Hashish Recreational Drug Use Frequency: Rarely ED ROS GENERAL - Review of Systems Review Of Systems: See Below Constitutional: Reports: No Symptoms Respiratory: Reports: No Symptoms Cardiovascular: Reports: No Symptoms GI/Abdominal: Reports: No Symptoms Psychiatric: Reports: Depression, Suicidal Ideation. Denies: Hallucinations, Homicidal Ideation ED EXAM, BEHAVIORAL HEALTH - Physical Exam Exam: See Below Text/Narrative:: Orientated to person place and time, appropriately dressed, well groomed, memory to recent and remote events intact, good attention and concentration, speech is of adequate rate tone and volume, good fund of knowledge, language is appropriate, Mood and affect are depressed, no pressured thoughts, positive for suicidal ideation, denies homicidal ideation, no hallucinations visual or auditory, poor judgment, poor insight Exam Limited By: No Limitations General Appearance: Alert, WD/WN, No Apparent Distress, Other (Depressed) Respiratory/Chest: No Respiratory Distress, Lungs Clear, Normal Breath Sounds, No Accessory Muscle Use, Chest Non-Tender Cardiovascular: Regular Rate, Rhythm, No Murmur COURSE, BEHAVIORAL HEALTH COMP - Course Vital Signs: Last Vital Signs Temp 97.5 F 02/21/19 15:00 Pulse 116 H 02/21/19 15:00 Resp 16 02/21/19 15:00 BP 141/81 H 02/21/19 15:00 Pulse Ox 96 02/21/19 15:00 Orders, Labs, Meds: Active Orders 24 hr Category Date Time Status Suicide Precautions [OM.PC] Routine Oth 02/21/19 15:34 Ordered Laboratory Tests 02/21/19 02/21/19 02/21/19 Range/Units 15:40 15:40 15:40 WBC 18.8 H (4.5-11.0) K/uL RBC 5.90 H (3.30-5.50) M/uL Hgb 16.1 H D (12.0-15.0) g/dL Hct 49.1 H (36.0-48.0) % MCV 83 (80-98) fL MCH 27 (27-31) pg MCHC 33 (32-36) % Plt Count 202 (150-400) K/uL Neut % (Auto) 71 H (36-66) % Lymph % (Auto) 17 L (24-44) % Wilkes % (Auto) 9 H (2-6) % Eos % (Auto) 3 (2-4) % Baso % (Auto) 0 (0-1) % Sodium 139 L (140-148) mmol/L Potassium 3.9 (3.6-5.2) mmol/L Chloride 101 (100-108) mmol/L Carbon Dioxide 25 (21-32) mmol/L Anion Gap 16.9 H (5.0-14.0) mmol/L BUN 6 L (7-18) mg/dL Creatinine 0.7 (0.6-1.0) mg/dL Est Cr Clr Drug Dosing 116.39 mL/min Estimated GFR (MDRD) > 60 (>60) Glucose 121 H (74-106) mg/dL Calcium 9.7 (8.5-10.1) mg/dL Total Bilirubin 0.4 (0.2-1.0) mg/dL AST 30 D (15-37) U/L ALT 60 D (12-78) U/L Alkaline Phosphatase 88 (46-116) U/L Total Protein 8.6 H (6.4-8.2) g/dL Albumin 4.1 (3.4-5.0) g/dL Globulin 4.5 H (2.3-3.5) g/dL Albumin/Globulin Ratio 0.9 L (1.2-2.2) TSH, Ultra Sensitive (0.358-3.740) uIU/mL Urine Color (YELLOW) Urine Appearance (CLEAR) Urine pH (5.0-8.0) Ur Specific [place] (1.008-1.030) Urine Protein (NEGATIVE) mg/dL Urine Glucose (UA) (NEGATIVE) mg/dL Urine Ketones (NEGATIVE) mg/dL Urine Occult Blood (NEGATIVE) Urine Nitrite (NEGATIVE) Urine Bilirubin (NEGATIVE) Urine Urobilinogen (0.2-1.0) EU/dL Ur Leukocyte Esterase (NEGATIVE) Urine RBC (0-5) Urine WBC (0-5) Ur Epithelial Cells Amorphous Sediment Urine Bacteria Urine Mucus Urine Opiates Screen (NEGATIVE) Ur Oxycodone Screen (NEGATIVE) Urine Methadone Screen (NEGATIVE) Ur Propoxyphene Screen (NEGATIVE) Ur Barbiturates Screen (NEGATIVE) Ur Tricyclics Screen (NEGATIVE) Ur Phencyclidine Scrn (NEGATIVE) Ur Amphetamine Screen (NEGATIVE) U Methamphetamines Scrn (NEGATIVE) Urine MDMA Screen (NEGATIVE) U Benzodiazepines Scrn (NEGATIVE) U Cocaine Metab Screen (NEGATIVE) U Marijuana (THC) Screen (NEGATIVE) Ethyl Alcohol < 3 mg/dL 02/21/19 02/21/19 02/21/19 Range/Units 15:40 16:00 16:00 WBC (4.5-11.0) K/uL RBC (3.30-5.50) M/uL Hgb (12.0-15.0) g/dL Hct (36.0-48.0) % MCV (80-98) fL MCH (27-31) pg MCHC (32-36) % Plt Count (150-400) K/uL Neut % (Auto) (36-66) % Lymph % (Auto) (24-44) % Wilkes % (Auto) (2-6) % Eos % (Auto) (2-4) % Baso % (Auto) (0-1) % Sodium (140-148) mmol/L Potassium (3.6-5.2) mmol/L Chloride (100-108) mmol/L Carbon Dioxide (21-32) mmol/L Anion Gap (5.0-14.0) mmol/L BUN (7-18) mg/dL Creatinine (0.6-1.0) mg/dL Est Cr Clr Drug Dosing mL/min Estimated GFR (MDRD) (>60) Glucose (74-106) mg/dL Calcium (8.5-10.1) mg/dL Total Bilirubin (0.2-1.0) mg/dL AST (15-37) U/L ALT (12-78) U/L Alkaline Phosphatase (46-116) U/L Total Protein (6.4-8.2) g/dL Albumin (3.4-5.0) g/dL Globulin (2.3-3.5) g/dL Albumin/Globulin Ratio (1.2-2.2) TSH, Ultra Sensitive 1.454 (0.358-3.740) uIU/mL Urine Color Yellow (YELLOW) Urine Appearance Slightly cloudy A (CLEAR) Urine pH 5.5 (5.0-8.0) Ur Specific [place] 1.020 (1.008-1.030) Urine Protein Trace H (NEGATIVE) mg/dL Urine Glucose (UA) Negative (NEGATIVE) mg/dL Urine Ketones Negative (NEGATIVE) mg/dL Urine Occult Blood Negative (NEGATIVE) Urine Nitrite Negative (NEGATIVE) Urine Bilirubin Negative (NEGATIVE) Urine Urobilinogen 0.2 (0.2-1.0) EU/dL Ur Leukocyte Esterase Negative (NEGATIVE) Urine RBC 0-5 (0-5) Urine WBC 5-10 H (0-5) Ur Epithelial Cells Many Amorphous Sediment Few Urine Bacteria Many Urine Mucus Few Urine Opiates Screen Negative (NEGATIVE) Ur Oxycodone Screen Negative (NEGATIVE) Urine Methadone Screen Negative (NEGATIVE) Ur Propoxyphene Screen Negative (NEGATIVE) Ur Barbiturates Screen Negative (NEGATIVE) Ur Tricyclics Screen Negative (NEGATIVE) Ur Phencyclidine Scrn Negative (NEGATIVE) Ur Amphetamine Screen Negative (NEGATIVE) U Methamphetamines Scrn Negative (NEGATIVE) Urine MDMA Screen Negative (NEGATIVE) U Benzodiazepines Scrn Negative (NEGATIVE) U Cocaine Metab Screen Negative (NEGATIVE) U Marijuana (THC) Screen Negative (NEGATIVE) Ethyl Alcohol mg/dL Medications Discontinued Medications Generic Name Dose Route Start Last Admin Trade Name Freq PRN Reason Stop Dose Admin Diazepam 5 mg 02/21/19 15:32 02/21/19 15:52 Valium. PO 02/21/19 15:33 5 mg ONETIME ONE Administration Lorazepam 2 mg 02/21/19 18:19 02/21/19 18:26 Ativan PO 02/21/19 18:20 2 mg ONETIME ONE Administration Departure - Departure Time of Disposition: 18:30 Disposition: DC/Tfer to Psych Hosp/Unit 65 Condition: Fair Clinical Impression: Suicidal ideations - Discharge Information Referrals: PCP,None [Primary Care Provider] - Forms: ED Department Discharge - My Orders Last 24 Hours: My Active Orders 02/21/19 15:34 Suicide Precautions [OM.PC] Routine - Assessment/Plan Last 24 Hours: My Active Orders 02/21/19 15:34 Suicide Precautions [OM.PC] Routine Plan: Assessment Acuity = acute Site and laterality = suicidal ideation accompanied patient with history of asthma and tobacco use Etiology = unknown Manifestations = none Location of injury = Home Lab values = WBC elevated 18.8 consistent leukocytosis probably related to steroids, hemoglobin elevated at 16.1 probably related to tobacco use, the remainder of the CMP within normal limits TSH normal 1.45 urinalysis unremarkable urine drug screen is negative alcohol was negative Plan Did receive acceptance from Dr. Alva at [address] in [facility] she will be transported via EMS ground as no psychiatric transport is available with suicide precautions This note was dictated using [employer] voice recognition software please call with any questions on syntax or grammar.
[2019-02-21] MEDS: Diazepam 5 MG Tab PO ONE (15:52)
[2019-02-21] MEDS: LORazepam 1 MG Tab PO ONE (18:26)
[2019-02-21] MEDS: Nicotine 14 MG/24 Hr Patch TRDERM ONE (19:00)
[2019-02-21 19:13] VITALS: BP 159/55; PULSE 117
== END 2019-02-21 19:12 ==
LOC: JP.ED 14:43
DX: R45.851 Suicidal ideations (principal); J45.909 Unspecified asthma, uncomplicated; K21.9 Gastro-esophageal reflux disease without esophagitis; E03.9 Hypothyroidism, unspecified; E66.9 Obesity, unspecified; F17.210 Nicotine dependence, cigarettes, uncomplicated; Z88.0 Allergy status to penicillin; Z88.5 Allergy status to narcotic agent; Z79.51 Long term (current) use of inhaled steroids; Z79.899 Other long term (current) drug therapy; Z79.890 Hormone replacement therapy; Z68.42 Body mass index [BMI] 45.0-49.9, adult
CPT/HCPCS: 36415; 80053; 80305-QW; 81001; 84443; 85025; 99285; A9270-GY; G0480

== ENCOUNTER 2019-09-02 00:40 | Emergency (ER) | payer MEDICAID ==
[2019-09-02] MEDS ORDERED: Ketorolac 60 MG/2 ML SDV IM ONE (01:31)
[2019-09-02] MEDS ORDERED: Cyclobenzaprine 10 MG Tab PO ONE (01:31)
[2019-09-02 01:33] VITALS: BP 134/90; PULSE 88
--- NOTE | 2019-09-02 01:33 | EDM.PDOC ---
ED HPI GENERAL MEDICAL PROBLEM - General Chief Complaint: Back Pain or Injury Stated Complaint: BACK SPASMS Time Seen by Provider: 09/02/19 01:29 Source of Information: Reports: Patient, RN Notes Reviewed History Limitations: Reports: No Limitations - History of Present Illness INITIAL COMMENTS - FREE TEXT/NARRATIVE: 34-year-old female presents emergency department a complaint of low back pain, she states is been having back pain for about a day she is also having some trouble some constipation no loss of bowel or bladder no fever lower back Pain Score (Numeric/FACES): 9 - Related Data Allergies Allergy/AdvReac Type Severity Reaction Status Date / Time Penicillins Allergy Severe Anaphylactic Verified 09/02/19 01:08 Shock oxycodone AdvReac Nausea and Verified 09/02/19 01:08 Vomiting Home Meds: Home Meds Albuterol Sulfate 2 puff INH Q4H PRN 11/02/16 [History] Fluticasone Propion/Salmeterol [Advair 250-50 Diskus] 1 puff IH BID 12/31/16 [ History] Cholecalciferol (Vitamin D3) [Vitamin D3] 5,000 unit PO DAILY 07/15/17 [History] Amphetamine/Dextroamphetamine [Adderall] 15 mg PO DAILY 08/13/18 [History] Amphetamine/Dextroamphetamine [Adderall] 30 mg PO DAILY 08/13/18 [History] Omeprazole 20 mg PO BEDTIME 08/13/18 [History] Acetaminophen 500 mg PO Q6HR PRN 09/16/18 [History] EPINEPHrine [Epipen 2-Domingo] 0.3 ml IM ASDIRECTED PRN 09/16/18 [History] Ibuprofen 400 mg PO Q6HR PRN 09/16/18 [History] Ipratropium/Albuterol Sulfate [Iprat-Albut 0.5-3(2.5) mg/3 ml] 3 ml INH Q4HR PRN 09/16/18 [History] Levothyroxine 25 mcg PO ACBREAKFAST 01/17/19 [History] LORazepam [Ativan] 0.5 mg PO ASDIRECTED PRN 09/02/19 [History] [place] Carbonate 600 mg PO BID 09/02/19 [History] Sennosides [Senna] 8.6 mg PO BID 09/02/19 [History] bisacodyL [Bisacodyl] 10 mg RECTAL ASDIRECTED PRN 09/02/19 [History] buPROPion HCL [Wellbutrin Xl] 150 mg PO DAILY 09/02/19 [History] cloNIDine HCL [Clonidine HCl] 0.2 mg PO TID 09/02/19 [History] ondansetron HCL [Ondansetron HCl] 4 mg PO ASDIRECTED PRN 09/02/19 [History] Past Medical History HEENT History: Reports: Impaired Vision Cardiovascular History: Reports: Blood Clots/VTE/DVT Respiratory History: Reports: Asthma, PE Other Respiratory History: pulmonary embolism 10 yrs ago with chest tube insertion Gastrointestinal History: Reports: Diverticulosis, GERD Musculoskeletal History: Reports: Fracture Neurological History: Reports: Concussion, Migraines Other Neuro History: degenerational discs Psychiatric History: Reports: ADHD, Anxiety, Depression, Psych Hospitalization(s ), PTSD, Suicide Attempt Other Psychiatric History: Pt is currently seeing a mental health counselor at [facility] in [place] Endocrine/Metabolic History: Reports: Hypothyroidism, Obesity/BMI 30+ Hematologic History: Reports: Anticoagulation Therapy, Blood Transfusion(s), Other (See Below) Other Hematologic History: factor V leiden Dermatologic History: Reports: Cellulitis - Infectious Disease History Infectious Disease History: Reports: Chicken Pox - Past Surgical History Head Surgeries/Procedures: Reports: None HEENT Surgical History: Reports: Tonsillectomy Cardiovascular Surgical History: Reports: None Respiratory Surgical History: Reports: Other (See Below) Other Respiratory Surgeries/Procedures: chest tube GI Surgical History: Reports: Cholecystectomy, Colonoscopy, Other (See Below) Other GI Surgeries/Procedures: recent lypoma removed from abdomen x2 Endocrine Surgical History: Reports: None Neurological Surgical History: Reports: None Musculoskeletal Surgical History: Reports: None Dermatological Surgical History: Reports: None Social & Family History - Family History Family Medical History: Noncontributory - Tobacco Use Smoking Status *Q: Current Every Day Smoker Years of Tobacco use: 17 Packs/Tins Daily: 0.2 - Caffeine Use Caffeine Use: Reports: Coffee, Soda - Recreational Drug Use Recreational Drug Use: Yes Drug Use in Last 12 Months: Yes Recreational Drug Type: Reports: Marijuana/Hashish Recreational Drug Use Frequency: Socially ED ROS GENERAL - Review of Systems Review Of Systems: See Below Constitutional: Reports: No Symptoms Respiratory: Reports: No Symptoms Cardiovascular: Reports: No Symptoms GI/Abdominal: Reports: Constipation Musculoskeletal: Reports: Back Pain Neurological: Reports: No Symptoms ED EXAM,LOWER BACK PAIN/INJURY - Physical Exam Exam: See Below Exam Limited By: No Limitations General Appearance: Alert, Mild Distress Respiratory/Chest: No Respiratory Distress Back Exam: Normal Inspection, Decreased Range of Motion, Muscle Spasm, Paraspinal Tenderness. No: CVA Tenderness (R), CVA Tenderness (L), Vertebral Tenderness Course - Vital Signs Last Recorded V/S: Last Vital Signs Temp 97.3 F 09/02/19 01:33 Pulse 88 09/02/19 01:33 Resp 18 09/02/19 01:33 BP 134/90 09/02/19 01:33 Pulse Ox 97 09/02/19 01:33 - Orders/Labs/Meds Meds: Medications Discontinued Medications Generic Name Dose Route Start Last Admin Trade Name Russel PRN Reason Stop Dose Admin Cyclobenzaprine HCl 10 mg 09/02/19 01:31 09/02/19 01:55 Flexeril PO 09/02/19 01:32 10 mg ONETIME ONE Administration Hydromorphone HCl 1 mg 09/02/19 02:48 09/02/19 03:05 Dilaudid IM 09/02/19 02:49 1 mg ONETIME ONE Administration Ketorolac Tromethamine 60 mg 09/02/19 01:31 09/02/19 01:55 Toradol IM 09/02/19 01:32 60 mg ONETIME ONE Administration Departure - Departure Time of Disposition: 03:43 Disposition: Home, Self-Care 01 Condition: Fair Clinical Impression: Back pain Qualifiers: Back pain location: low back pain Chronicity: acute Back pain laterality: right Sciatica presence: without sciatica Qualified Code(s): M54.5 - Low back pain - Discharge Information Instructions: Acute Back Pain, Adult Referrals: Lexie Venegas PA [Primary Care Provider] - Forms: ED Department Discharge Additional Instructions: Use ibuprofen for baseline pain control, use hydrocodone for breakthrough pain, try the Flexeril as needed for muscle relaxant, please followup with your primary care provider in 3-5 days if not better, please call return to the emergency department with worsening of symptoms. Sepsis Event Note (ED) - Focused Exam Vital Signs: Vital Signs Temp Pulse Resp BP Pulse Ox 09/02/19 01:33 97.3 F 88 18 134/90 97 09/02/19 01:28 97.3 F 88 18 134/90 97 - Assessment/Plan Plan: Assessment Acuity = acute Site and laterality = low back pain Etiology = unknown Manifestations = none Location of injury = Home Lab values = none Plan Did get some improvement with combination Toradol and hydromorphone, discharged home with Flexeril 10 mg p.o. 3 times daily as needed and hydrocodone 5/325 1 tab p.o. 3 times daily PRN total #10 follow-up primary care 3 to 5 days if not better This note was dictated using PictureMenu recognition software please call with any questions on syntax or grammar.
[2019-09-02] MEDS ORDERED: HYDROmorphone 1 MG/ML Syringe IM ONE (02:48)
== END 2019-09-02 03:48 | disposition home or self-care (01) ==
LOC: JP.ED 00:40
DX: M54.5 Low back pain (principal); J45.909 Unspecified asthma, uncomplicated; K21.9 Gastro-esophageal reflux disease without esophagitis; F41.9 Anxiety disorder, unspecified; F32.9 Major depressive disorder, single episode, unspecified; E03.9 Hypothyroidism, unspecified; E66.9 Obesity, unspecified; Z68.42 Body mass index [BMI] 45.0-49.9, adult; F17.210 Nicotine dependence, cigarettes, uncomplicated; Z79.01 Long term (current) use of anticoagulants; Z79.899 Other long term (current) drug therapy; Z88.0 Allergy status to penicillin; Z88.5 Allergy status to narcotic agent
CPT/HCPCS: 96372; 99283; A9270; J1170; J1885

== ENCOUNTER 2019-09-25 18:36 | Emergency (ER) | payer MEDICAID, OTHER ==
[2019-09-25 18:48] VITALS: BP 151/92; PULSE 115
--- NOTE | 2019-09-25 18:55 | EDM.PDOCBH ---
ED HPI GENERAL MEDICAL PROBLEM - General Stated Complaint: EVAL Time Seen by Provider: 09/25/19 18:36 Source of Information: Reports: Patient History Limitations: Reports: No Limitations - History of Present Illness INITIAL COMMENTS - FREE TEXT/NARRATIVE: Ayaka is a 34 year old female, presents to the ED today from clinic wanting placement for suicidal ideation. Patient had blood work done at clinic prior to arrival, including, CMP, CBC, UA, Urine Drug Screen, Urine and ETOH level. Blood work returns prior to arrival with Potassium of 3.3, remaining CMP unremarkable, UA negative, UPT negative, CBC returns with a white count of 21.5, stable HGB. According to clinic provider note, patient has been struggling with her mood, she stays alive to not hurt others, not states she denies any suicidal ideation or plan. She lives with her mom which is a struggle, she and mom have been fighting. She hasn't been following through with housing appointments. She wants to voluntary attend an inpatient mental healthy facility and reportedly was told to come here for "medical clearance and COVID testing" although no bed has been obtained for patient as of yet. Patient reports that her white count has always been high, last time it was tested it was 18,000. Patient wants to go to [facility], she was told they have a bed. Onset: Gradual Right Ear Pain Score (Numeric/FACES): 6 - Related Data Allergies Allergy/AdvReac Type Severity Reaction Status Date / Time Penicillins Allergy Severe Anaphylactic Verified 09/25/19 19:07 Shock oxycodone AdvReac Nausea and Verified 09/25/19 19:07 Vomiting Home Meds: Home Meds Albuterol Sulfate 2 puff INH Q4H PRN 11/02/16 [History] Fluticasone Propion/Salmeterol [Advair 250-50 Diskus] 1 puff IH BID 12/31/16 [History] Cholecalciferol (Vitamin D3) [Vitamin D3] 5,000 unit PO DAILY 07/15/17 [History] Amphetamine/Dextroamphetamine [Adderall] 15 mg PO DAILY 08/13/18 [History] Amphetamine/Dextroamphetamine [Adderall] 30 mg PO DAILY 08/13/18 [History] Omeprazole 20 mg PO BEDTIME 08/13/18 [History] Acetaminophen 500 mg PO Q6HR PRN 09/16/18 [History] EPINEPHrine [Epipen 2-Domingo] 0.3 ml IM ASDIRECTED PRN 09/16/18 [History] Ibuprofen 400 mg PO Q6HR PRN 09/16/18 [History] Ipratropium/Albuterol Sulfate [Iprat-Albut 0.5-3(2.5) mg/3 ml] 3 ml INH Q4HR PRN 09/16/18 [History] Levothyroxine 25 mcg PO ACBREAKFAST 01/17/19 [History] LORazepam [Ativan] 0.5 mg PO ASDIRECTED PRN 09/02/19 [History] [place] Carbonate 600 mg PO BID 09/02/19 [History] Sennosides [Senna] 8.6 mg PO BID 09/02/19 [History] bisacodyL [Bisacodyl] 10 mg RECTAL ASDIRECTED PRN 09/02/19 [History] buPROPion HCL [Wellbutrin Xl] 150 mg PO DAILY 09/02/19 [History] cloNIDine HCL [Clonidine HCl] 0.2 mg PO TID 09/02/19 [History] ondansetron HCL [Ondansetron HCl] 4 mg PO ASDIRECTED PRN 09/02/19 [History] Azithromycin 1 tab PO DAILY 09/25/19 [History] Ofloxacin [Floxin 0.3% Otic Soln] 10 ml .XX DAILY 09/25/19 [History] Past Medical History HEENT History: Reports: Impaired Vision Cardiovascular History: Reports: Blood Clots/VTE/DVT Respiratory History: Reports: Asthma, PE Other Respiratory History: pulmonary embolism 10 yrs ago with chest tube insertion Gastrointestinal History: Reports: Diverticulosis, GERD Musculoskeletal History: Reports: Fracture Neurological History: Reports: Concussion, Migraines Other Neuro History: degenerational discs Psychiatric History: Reports: ADHD, Anxiety, Depression, Psych Hospitalization(s), PTSD, Suicide Attempt Other Psychiatric History: Pt is currently seeing a mental health counselor at [facility] in [place] Endocrine/Metabolic History: Reports: Hypothyroidism, Obesity/BMI 30+ Hematologic History: Reports: Anticoagulation Therapy, Blood Transfusion(s), Other (See Below) Other Hematologic History: factor V leiden Dermatologic History: Reports: Cellulitis - Infectious Disease History Infectious Disease History: Reports: Chicken Pox - Past Surgical History Head Surgeries/Procedures: Reports: None HEENT Surgical History: Reports: Tonsillectomy Cardiovascular Surgical History: Reports: None Respiratory Surgical History: Reports: Other (See Below) Other Respiratory Surgeries/Procedures: chest tube GI Surgical History: Reports: Cholecystectomy, Colonoscopy, Other (See Below) Other GI Surgeries/Procedures: recent lypoma removed from abdomen x2 Endocrine Surgical History: Reports: None Neurological Surgical History: Reports: None Musculoskeletal Surgical History: Reports: None Dermatological Surgical History: Reports: None Social & Family History - Family History Family Medical History: Noncontributory - Caffeine Use Caffeine Use: Reports: Coffee, Soda ED ROS GENERAL - Review of Systems Review Of Systems: Comprehensive ROS is negative, except as noted in HPI. ED EXAM, BEHAVIORAL HEALTH - Physical Exam Exam: See Below Exam Limited By: No Limitations General Appearance: Alert, WD/WN Ears: Normal External Exam Nose: Normal Inspection Throat/Mouth: Normal Inspection Head: Atraumatic Neck: Normal Inspection Respiratory/Chest: No Respiratory Distress GI/Abdominal: Normal Bowel Sounds Extremities: Normal Inspection Neurological: Alert, Normal Mood/Affect COURSE, BEHAVIORAL HEALTH COMP - Course Vital Signs: Last Vital Signs Temp 36.4 C 09/25/19 19:19 Pulse 115 H 09/25/19 19:19 Resp 16 09/25/19 19:19 BP 151/92 H 09/25/19 19:19 Pulse Ox 98 09/25/19 19:19 Ayaka arrives here for mental health placement to [facility]. Please refer to HPI and focused exam. Labs and urine viewed from clinic today and rapid COVID test is pending. In speaking with patient she is voluntary with no active current suicidal plan so I do not feel that a hold is necessary. Patient does have leukocytosis which isn't new, however, after all is said and done with her mental health issues she should have this rechecked. She has no infectious etiology to account for leukocytosis and it seems to be creeping up from last time it was checked. 194-[id number] spoke with Tara from [facility], she states they do have a bed for patient, requested paperwork to be faxed from clinic. They are requesting a repeat Urine drug screen and blood ETOH since patient has left the clinic to ens ure these are still negative. COVID screen negative, rapid test pending. Patient updated on plan of care and is agreeable. [id number] positive for Benzo's and Amphetamine, patient is prescribed Ativan and Adderall. COVID swab is negative. Pending ETOH, patient has been medically cleared and will be driving herself to [facility] per patient request. Patient discharged in stable condition. Orders, Labs, Meds: Active Orders 24 hr Category Date Time Status ETOH [ETHANOL BLOOD MEDICAL] [CHEM] Stat Lab 09/25/19 19:53 Received Laboratory Tests 09/25/19 09/25/19 Range/Units 19:01 19:53 Urine Opiates Screen Negative (NEGATIVE) Ur Oxycodone Screen Negative (NEGATIVE) Urine Methadone Screen Negative (NEGATIVE) Ur Propoxyphene Screen Negative (NEGATIVE) Ur Barbiturates Screen Negative (NEGATIVE) Ur Tricyclics Screen Negative (NEGATIVE) Ur Phencyclidine Scrn Negative (NEGATIVE) Ur Amphetamine Screen Presumptive positive H (NEGATIVE) U Methamphetamines Scrn Negative (NEGATIVE) Urine MDMA Screen Negative (NEGATIVE) U Benzodiazepines Scrn Presumptive positive H (NEGATIVE) U Cocaine Metab Screen Negative (NEGATIVE) U Marijuana (THC) Screen Negative (NEGATIVE) SARS Virus RNA (PCR) Negative (NEGATIVE) Departure - Departure Time of Disposition: 21:00 Disposition: DC/Tfer to Psych Hosp/Unit [facility] Condition: Fair Clinical Impression: Depression Qualifiers: Depression Type: unspecified Qualified Code(s): F32.9 - Major depressive dis order, single episode, unspecified - Discharge Information Instructions: Major Depressive Disorder, Adult Referrals: Lexie Venegas PA [Primary Care Provider] - Additional Instructions: Take care Ayaka. Please go to [facility] as planned. I hope they are able to help you through many of your issues. Sepsis Event Note (ED) - Focused Exam Vital Signs: Vital Signs Temp Pulse Resp BP Pulse Ox 09/25/19 19:19 36.4 C 115 H 16 151/92 H 98 09/25/19 18:46 36.4 C 115 H 16 151/92 H 98 - My Orders Last 24 Hours: My Active Orders 09/25/19 19:53 ETOH [ETHANOL BLOOD MEDICAL] [CHEM] Stat - Assessment/Plan Last 24 Hours: My Active Orders 09/25/19 19:53 ETOH [ETHANOL BLOOD MEDICAL] [CHEM] Stat
== END 2019-09-25 23:30 ==
LOC: JP.ED 18:36
DX: F32.9 Major depressive disorder, single episode, unspecified (principal); J45.909 Unspecified asthma, uncomplicated; K21.9 Gastro-esophageal reflux disease without esophagitis; Z20.828 Contact with and (suspected) exposure to other viral communicable diseases; F90.9 Attention-deficit hyperactivity disorder, unspecified type; F41.9 Anxiety disorder, unspecified; G43.909 Migraine, unspecified, not intractable, without status migrainosus; E03.9 Hypothyroidism, unspecified; E66.9 Obesity, unspecified; Z90.89 Acquired absence of other organs; Z88.0 Allergy status to penicillin; Z86.711 Personal history of pulmonary embolism; Z88.8 Allergy status to other drugs, medicaments and biological substances; Z79.899 Other long term (current) drug therapy; Z68.42 Body mass index [BMI] 45.0-49.9, adult
CPT/HCPCS: 36415; 80305-QW; 80307; 99282; 99285; U0002